=== PATIENT | female | born 1990 | race Caucasian/White ===

== ENCOUNTER 2017-10-11 20:22 | Emergency (ER) | payer OTHER ==
[~2017-10-11] VITALS: Ht 165.1 cm; Wt 61.2 kg
[2017-10-11 23:09] LABS: BASOPHILS ABSOLUTE AUTO 0.03 K/mm3 (0.00-0.23); BASOPHILS PERCENT AUTO 0 % (0-2); EOSINOPHILS PERCENT AUTO 0 % (0-6); Hematocrit 34.3 % (33.0-51.0); IMMATURE GRAN ABSOLUTE AUTO 0.08 K/mm3 (0.00-0.10); IMMATURE GRAN PERCENT AUTO 1 % (0-1); LYMPHOCYTES ABSOLUTE AUTO 2.56 K/mm3 (0.84-5.20); LYMPHOCYTES PERCENT AUTO 23 % (21-46); MONOCYTES ABSOLUTE AUTO 0.68 K/mm3 (0.16-1.47); MONOCYTES PERCENT AUTO 6 % (4-13); Mean Corpuscular HGB 27.9 pg (26.0-34.0); Mean Corpuscular HGB Conc 32.1 g/dL (31.5-36.5); Mean Corpuscular Volume 87 fL (80-100); NEUTROPHILS PERCENT AUTO 70 % (41-73); RDW Coefficient Variation 13.3 % (11.7-14.2); RDW Standard Deviation 42.6 fL (35.1-46.3); Red Blood Cell Count 3.94 M/mm3 (3.80-5.20); White Blood Cell Count 11.35 K/mm3 (4.00-11.30)
[2017-10-11 23:10] LABS: Mean Platelet Volume 11.9 fL (9.1-12.4); Platelet Count 173 K/mm3 (150-400)
[2017-10-11 23:18] LABS: Anion Gap 8 mmol/L (6-16); Blood Urea Nitrogen 11 mg/dL (8-24); Bun/Creatinine Ratio 16.4 (12.0-20.0); CO2, Blood 27 mmol/L (21-32); Calcium, Blood 9.1 mg/dL (8.5-10.1); Chloride, Blood 100 mmol/L (98-108); Creatinine, Blood 0.67 mg/dL (0.40-1.00); Glomerular Filtration Rate >60 (60-); Glucose, Blood 448 mg/dL (70-99); Potassium, Blood 3.7 mmol/L (3.5-5.5); Sodium, Blood 135 mmol/L (136-145)
[2017-10-12] MEDS ORDERED: CEPH500 PO (00:24)
[2017-10-22] MEDS ORDERED: LITH300ER PO (17:13)
[2017-10-22] MEDS ORDERED: PALI6TA PO (17:14)
[2017-10-22] MEDS ORDERED: CLON.2 PO (17:14)
[2017-10-22] MEDS ORDERED: Methylin ER10 MG PO (17:16)
[2017-10-22] MEDS ORDERED: TEMA30 PO (17:16)
[2017-10-22] MEDS ORDERED: Benztropine Mesy1 MG PO (17:17)
[2017-10-22] MEDS ORDERED: LORA.5 PO (17:18)
[2017-10-22] MEDS ORDERED: Vitamin D2000 UNIT PO (17:18)
[2017-10-22] MEDS ORDERED: METO5A PO (17:19)
[2017-10-22] MEDS ORDERED: Omeprazole20 M1 PO (17:19)
[2017-10-22] MEDS ORDERED: METPHE20 PO (17:19)
[2017-10-22] MEDS ORDERED: INSULANPEN SC (17:20)
[2017-10-22] MEDS ORDERED: Humalog100 UNIT/1 SC (17:20)
[2017-10-22] MEDS ORDERED: DICL250 PO (21:43)
[2017-10-22] MEDS ORDERED: Acetaminophen-1 EAC1 PO (21:43)
== END 2017-10-12 00:36 | disposition home or self-care (01) ==
LOC: ER 20:22
PROVIDERS: Emergency Medicine
DX: L03.116 Cellulitis of left lower limb (principal); E11.65 Type 2 diabetes mellitus with hyperglycemia; F41.9 Anxiety disorder, unspecified; K21.9 Gastro-esophageal reflux disease without esophagitis; F31.9 Bipolar disorder, unspecified; Z88.5 Allergy status to narcotic agent
CPT/HCPCS: 36415; 73610; 73630; 80048; 85025; 96360; 96361; 99283; J7030

== ENCOUNTER 2017-11-12 18:02 | Emergency (ER) | payer OTHER ==
[~2017-11-12] VITALS: Ht 165.1 cm; Wt 59.0 kg
[~2017-11-12 18:02] MED LIST: Acetaminophen-1 EAC1 PO; Benztropine Mesy1 MG PO; CEPH500 PO; CLON.2 PO; DICL250 PO; Humalog100 UNIT/1 SC; INSULANPEN SC; LITH300ER PO; LORA.5 PO; METO5A PO; METPHE20 PO; Methylin ER10 MG PO; Omeprazole20 M1 PO; PALI6TA PO; TEMA30 PO; Vitamin D2000 UNIT PO
[2017-11-12] MEDS ORDERED: METPHE10 PO (18:18)
[2017-11-12] MEDS ORDERED: RITALIN PO (18:18)
== END 2017-11-12 18:24 | disposition home or self-care (01) ==
LOC: ER 18:02
DX: Z76.0 Encounter for issue of repeat prescription (principal); F31.9 Bipolar disorder, unspecified; E11.9 Type 2 diabetes mellitus without complications; K21.9 Gastro-esophageal reflux disease without esophagitis; F41.9 Anxiety disorder, unspecified; F17.210 Nicotine dependence, cigarettes, uncomplicated; Z88.5 Allergy status to narcotic agent; Z79.899 Other long term (current) drug therapy; Z79.4 Long term (current) use of insulin
CPT/HCPCS: 99282

== ENCOUNTER 2018-02-21 08:36 | Observation (INO) | payer OTHER ==
[~2018-02-21] VITALS: Ht 165.1 cm; Wt 59.4 kg
[~2018-02-21 08:36] MED LIST changes: +METPHE10 PO; +RITALIN PO
[2018-02-21 09:30] LABS: BASOPHILS ABSOLUTE AUTO 0.05 K/mm3 (0.00-0.23); BASOPHILS PERCENT AUTO 1 % (0-2); EOSINOPHILS ABSOLUTE AUTO 0.02 K/mm3 (0.00-0.68); EOSINOPHILS PERCENT AUTO 0 % (0-6); Hematocrit 40.1 % (33.0-51.0); Hemoglobin 12.3 g/dL (11.5-16.0); IMMATURE GRAN ABSOLUTE AUTO 0.05 K/mm3 (0.00-0.10); IMMATURE GRAN PERCENT AUTO 1 % (0-1); LYMPHOCYTES ABSOLUTE AUTO 1.62 K/mm3 (0.84-5.20); LYMPHOCYTES PERCENT AUTO 16 % (21-46); MONOCYTES ABSOLUTE AUTO 0.46 K/mm3 (0.16-1.47); MONOCYTES PERCENT AUTO 5 % (4-13); Mean Corpuscular HGB 24.1 pg (26.0-34.0); Mean Corpuscular HGB Conc 30.7 g/dL (31.5-36.5); Mean Corpuscular Volume 79 fL (80-100); Mean Platelet Volume 11.5 fL (9.1-12.4); NEUTROPHILS ABSOLUTE AUTO 8.08 K/mm3 (1.96-9.15); NEUTROPHILS PERCENT AUTO 79 % (41-73); Platelet Count 203 K/mm3 (150-400); RDW Standard Deviation 51.1 fL (35.1-46.3); Red Blood Cell Count 5.11 M/mm3 (3.80-5.20); White Blood Cell Count 10.28 K/mm3 (4.00-11.30)
[2018-02-21 10:04] LABS: Alanine Aminotransfer (ALT/SGP 30 U/L (12-78); Albumin, Blood 4.4 g/dL (3.4-5.0); Alk Phos 195 U/L (50-136); Anion Gap 20 mmol/L (6-16); Aspartate Aminotrans (AST/SGOT 13 U/L (12-37); Bilirubin, Total 0.8 mg/dL (0.1-1.0); Blood Urea Nitrogen 14 mg/dL (8-24); Bun/Creatinine Ratio 18.7 (12.0-20.0); CO2, Blood 17 mmol/L (21-32); Calcium, Blood 9.2 mg/dL (8.5-10.1); Chloride, Blood 93 mmol/L (98-108); Creatinine, Blood 0.75 mg/dL (0.40-1.00); Globulin, Blood 4.4 g/dL (2.2-4.0); Glomerular Filtration Rate >60 (60-); Potassium, Blood 3.9 mmol/L (3.5-5.5); Sodium, Blood 130 mmol/L (136-145); Total Protein, Blood 8.8 g/dL (6.4-8.2)
[2018-02-21 10:06] LABS: Glucose, Blood 544 mg/dL (70-99)
[2018-02-21 11:34] LABS: Beta-hydroxybutyrate 65.1 mg/dL (0.2-2.8)
[2018-02-21 14:49] LABS: Anion Gap 19 mmol/L (6-16); Blood Urea Nitrogen 12 mg/dL (8-24); Bun/Creatinine Ratio 18.5 (12.0-20.0); CO2, Blood 12 mmol/L (21-32); Calcium, Blood 7.8 mg/dL (8.5-10.1); Chloride, Blood 104 mmol/L (98-108); Creatinine, Blood 0.65 mg/dL (0.40-1.00); Glomerular Filtration Rate >60 (60-); Glucose, Blood 334 mg/dL (70-99); Potassium, Blood 3.3 mmol/L (3.5-5.5); Sodium, Blood 135 mmol/L (136-145)
[2018-02-21 18:35] LABS: Anion Gap 11 mmol/L (6-16); Blood Urea Nitrogen 10 mg/dL (8-24); Bun/Creatinine Ratio 17.1 (12.0-20.0); CO2, Blood 19 mmol/L (21-32); Calcium, Blood 8.2 mg/dL (8.5-10.1); Chloride, Blood 109 mmol/L (98-108); Creatinine, Blood 0.59 mg/dL (0.40-1.00); Glomerular Filtration Rate >60 (60-); Glucose, Blood 116 mg/dL (70-99); Potassium, Blood 3.7 mmol/L (3.5-5.5); Sodium, Blood 139 mmol/L (136-145)
[2018-02-21 22:55] LABS: Anion Gap 7 mmol/L (6-16); Blood Urea Nitrogen 9 mg/dL (8-24); Bun/Creatinine Ratio 9.2 (12.0-20.0); CO2, Blood 22 mmol/L (21-32); Calcium, Blood 7.8 mg/dL (8.5-10.1); Chloride, Blood 108 mmol/L (98-108); Creatinine, Blood 0.98 mg/dL (0.40-1.00); Glomerular Filtration Rate >60 (60-); Glucose, Blood 352 mg/dL (70-99); Potassium, Blood 3.6 mmol/L (3.5-5.5); Sodium, Blood 137 mmol/L (136-145)
[2018-02-22 03:48] LABS: Anion Gap 8 mmol/L (6-16); Blood Urea Nitrogen 8 mg/dL (8-24); Bun/Creatinine Ratio 11.9 (12.0-20.0); CO2, Blood 23 mmol/L (21-32); Calcium, Blood 8.4 mg/dL (8.5-10.1); Chloride, Blood 110 mmol/L (98-108); Creatinine, Blood 0.67 mg/dL (0.40-1.00); Glomerular Filtration Rate >60 (60-); Glucose, Blood 270 mg/dL (70-99); Potassium, Blood 3.6 mmol/L (3.5-5.5); Sodium, Blood 141 mmol/L (136-145)
[2018-02-22] MEDS ORDERED: INSULANPEN SC (08:35)
== END 2018-02-22 09:09 | disposition home or self-care (01) ==
LOC: ER 08:36 → ICUW 08:37 → ICUE 13:14
PROVIDERS: Emergency Medicine; Internal Medicine; Nurse Practitioner Acute Care
DX: E10.10 Type 1 diabetes mellitus with ketoacidosis without coma (principal); E10.65 Type 1 diabetes mellitus with hyperglycemia; F31.9 Bipolar disorder, unspecified; E10.43 Type 1 diabetes mellitus with diabetic autonomic (poly)neuropathy; G47.30 Sleep apnea, unspecified; K31.84 Gastroparesis; F17.210 Nicotine dependence, cigarettes, uncomplicated; K21.9 Gastro-esophageal reflux disease without esophagitis; Z88.5 Allergy status to narcotic agent; Z87.442 Personal history of urinary calculi; Z79.899 Other long term (current) drug therapy; Z79.4 Long term (current) use of insulin
CPT/HCPCS: 36415; 80048; 80053; 81000; 81025; 82010; 82800; 82947; 85025; 96361; 96374; 96375; 99285-25; C9113; G0378; J1815; J2405; J3010; J7030; J7042

== ENCOUNTER 2018-06-24 14:24 | Inpatient (IN) | payer OTHER ==
[~2018-06-24] VITALS: Ht 165.1 cm; Wt 62.9 kg
[~2018-06-24 14:24] MED LIST changes: +CYCL10 PO; +IBUP600 PO
[2018-06-24 15:08] LABS: Source, Urine Clean Catch
[2018-06-24 15:13] LABS: Bilirubin, Urine Neg (Neg); Blood, Urine 5+ (Neg); Glucose Qualitative, Urine 4+ (Neg); Ketones, Urine 3+ (Neg); Leukocyte Esterase, Urine 1+ (Neg); Nitrite, Urine Neg (Neg); Protein, Urine Neg (Neg); Urobilinogen, Urine NORM (Normal)
[2018-06-24 15:15] LABS: BASOPHILS ABSOLUTE AUTO 0.04 K/mm3 (0.00-0.23); BASOPHILS PERCENT AUTO 0 % (0-2); EOSINOPHILS ABSOLUTE AUTO 0.03 K/mm3 (0.00-0.68); EOSINOPHILS PERCENT AUTO 0 % (0-6); Hematocrit 42.4 % (33.0-51.0); Hemoglobin 12.9 g/dL (11.5-16.0); IMMATURE GRAN ABSOLUTE AUTO 0.07 K/mm3 (0.00-0.10); IMMATURE GRAN PERCENT AUTO 1 % (0-1); LYMPHOCYTES ABSOLUTE AUTO 1.93 K/mm3 (0.84-5.20); LYMPHOCYTES PERCENT AUTO 19 % (21-46); MONOCYTES ABSOLUTE AUTO 0.41 K/mm3 (0.16-1.47); MONOCYTES PERCENT AUTO 4 % (4-13); Mean Corpuscular HGB 27.6 pg (26.0-34.0); Mean Corpuscular HGB Conc 30.4 g/dL (31.5-36.5); Mean Corpuscular Volume 91 fL (80-100); Mean Platelet Volume 12.6 fL (9.1-12.4); NEUTROPHILS PERCENT AUTO 75 % (41-73); Platelet Count 177 K/mm3 (150-400); RDW Coefficient Variation 14.2 % (11.7-14.2); RDW Standard Deviation 47.8 fL (35.1-46.3); Red Blood Cell Count 4.67 M/mm3 (3.80-5.20); White Blood Cell Count 9.98 K/mm3 (4.00-11.30)
[2018-06-24 15:21] LABS: Appearance, Urine Cloudy (Clear); Color, Urine Yellow (P-Yellow)
[2018-06-24 15:22] LABS: Bacteria Few /hpf; Red Blood Cells, Urine TNTC /hpf (0-2); Squamous Epithelial Cells Few /hpf (Few)
[2018-06-24 15:58] LABS: Alanine Aminotransfer (ALT/SGP 33 U/L (12-78); Albumin, Blood 4.7 g/dL (3.4-5.0); Alk Phos 318 U/L (50-136); Anion Gap 19 mmol/L (6-16); Aspartate Aminotrans (AST/SGOT 16 U/L (12-37); Bilirubin, Total 0.8 mg/dL (0.1-1.0); Blood Urea Nitrogen 24 mg/dL (8-24); Bun/Creatinine Ratio 23.3 (12.0-20.0); CO2, Blood 18 mmol/L (21-32); Chloride, Blood 90 mmol/L (98-108); Creatinine, Blood 1.03 mg/dL (0.40-1.00); Globulin, Blood 4.6 g/dL (2.2-4.0); Glomerular Filtration Rate >60 (60-); Glucose, Blood 877 mg/dL (70-99); Potassium, Blood 4.2 mmol/L (3.5-5.5); Sodium, Blood 127 mmol/L (136-145); Total Protein, Blood 9.3 g/dL (6.4-8.2)
[2018-06-24 20:30] LABS: Glucose, Blood 498 mg/dL (70-99)
[2018-06-24] MEDS ORDERED: QUET25 PO (21:26)
[2018-06-24] MEDS ORDERED: QUET100 PO (21:27)
[2018-06-24] MEDS ORDERED: LITH300C PO ×2 (21:28→21:29)
[2018-06-24] MEDS ORDERED: INVEGA SUS39 MG/0.25 IM (21:31)
[2018-06-24 21:44] LABS: Anion Gap 9 mmol/L (6-16); Blood Urea Nitrogen 17 mg/dL (8-24); Bun/Creatinine Ratio 23.5 (12.0-20.0); CO2, Blood 25 mmol/L (21-32); Calcium, Blood 8.1 mg/dL (8.5-10.1); Chloride, Blood 104 mmol/L (98-108); Creatinine, Blood 0.72 mg/dL (0.40-1.00); Glomerular Filtration Rate >60 (60-); Glucose, Blood 340 mg/dL (70-99); Potassium, Blood 3.5 mmol/L (3.5-5.5)
[2018-06-24 21:45] LABS: Sodium, Blood 138 mmol/L (136-145)
--- NOTE | 2018-06-24 22:59 | NUR ---
[facility]: Patient arrived to unit via stretcher at 2055hr, accompanied by ED nurse. Stood and transferred to bed without difficulty. VSS, denies pain, discomfort, SOB, or dyspnea. Insulin gtt at 6 u/hr upon arrival, decreased to 4u/hr after checking CBG. NS infusing and 250ml/hr, both peripheral IV's patent and intact. Given small amount of water, tolerating well, denies nausea, also requesting food. Contacted Dr. Maria after 2100 BMP results received (gap closed, CO2 wnl), blood glucose also down to 280's. Received orders per Dr. Maria to give patient's home long-acting insulin (28u), wait x1hr and turn off insulin gtt. Instructed to then give 6u humalog AC, including before feeding patient this shift. Also received approval (per Dr. Maria) to write for patient's home medications (Seroquel, [place]). Call light in reach, instructed to not get out of bed without assistance. Will continue to monitor for pain, comfort, safety.
[2018-06-25 04:08] LABS: Anion Gap 6 mmol/L (6-16); Blood Urea Nitrogen 14 mg/dL (8-24); Bun/Creatinine Ratio 20.5 (12.0-20.0); CO2, Blood 27 mmol/L (21-32); Calcium, Blood 8.2 mg/dL (8.5-10.1); Chloride, Blood 109 mmol/L (98-108); Creatinine, Blood 0.68 mg/dL (0.40-1.00); Glomerular Filtration Rate >60 (60-); Glucose, Blood 67 mg/dL (70-99); Potassium, Blood 3.4 mmol/L (3.5-5.5); Sodium, Blood 142 mmol/L (136-145)
--- NOTE | 2018-06-25 06:52 | NUR ---
Shift Summary: Patient slept well throughout remainder of shift, easily roused via verbal stimuli. X1 c/o back pain (chronic), effectively managed with prn tylenol x1. Long-acting insulin given approx 0000hr, then insulin gtt turned off in approx 1hr. Tolerated PO food (sandwhich, crackers, jello) without difficulty. 6u AC insulin ordered per Dr. Maria held at that time per concern of hypoglycemia. Morning lab values showed glucose of 67, patient asymptomatic and drank PO orange juice. Glucose re-checked in approx 30min, increased to 86. Patient remained asymptomatic and ate more crackers throughout remainder of shift. Morning labs also showed K+ of 3.4, received order per Dr. Rogers for 40meq IV KCl x1. Peripheral IV's remain patent and intact. Voided using toilet in room without difficulty. Calm and cooperative with staff, uses call light for assistance. Report given to Benedict BENITEZ.
--- NOTE | 2018-06-25 11:35 | NUR ---
PT DISCHARGED PT HAS BEEN DISCHARGED HOME, PT EDUCATED ON MEDS, CARB COUNTING, AND CARE PLAN, PT AGREED WITH THE PLAN, PT HAS REFERAL TO GET UROLOGY APPIONTMENT
[2018-07-29] MEDS ORDERED: MONDOXYNE NL100 MG PO ×2 (09:36→09:37)
== END 2018-06-25 11:33 | disposition home or self-care (01) | DRG 639 ==
LOC: ER 14:24 → ICUW 17:21 → ICUE 20:54 → ER 20:54 → ICUE 21:05
PROVIDERS: Emergency Medicine; Physician Assistant; ADMIT Internal Medicine
DX: E10.10 Type 1 diabetes mellitus with ketoacidosis without coma (principal); E10.65 Type 1 diabetes mellitus with hyperglycemia; F31.9 Bipolar disorder, unspecified; F17.200 Nicotine dependence, unspecified, uncomplicated; R31.9 Hematuria, unspecified; Z79.4 Long term (current) use of insulin; Z88.5 Allergy status to narcotic agent
CPT/HCPCS: 36415; 74176; 80048; 80053; 81001; 82010; 82947; 85025; 87077; 87086; 87186; 90686; 96361; 96365; 96375; 99285-25; C9113; G0008; J1815; J2405; J3480; J7030; J7120

== ENCOUNTER → 2018-07-26 | Outpatient (CLI) | payer OTHER ==
[~2018-07-26] MED LIST changes: +INVEGA SUS156 MG/1 M; +INVEGA SUS39 MG/0.25 IM; +LITH300C PO; +MONDOXYNE NL100 MG PO; +QUET100 PO; +QUET25 PO; +Ultram50 MG PO
[2018-07-29 23:08] LABS: CHLAMYDIA TRACHOMATIS, NAA Negative (Negative); NEISSERIA GONORRHOEAE, NAA Negative (Negative)
== END ==
LOC: LAB EV 13:33 → LAB SHORT 13:33
PROVIDERS: Nurse Practitioner
DX: R10.2 Pelvic and perineal pain (principal)
CPT/HCPCS: 87070; 87205; 87491; 87591

== ENCOUNTER 2018-07-27 08:49 | Emergency (ER) | payer OTHER ==
[~2018-07-27] VITALS: Ht 165.1 cm; Wt 65.8 kg
[~2018-07-27 08:49] MED LIST changes: -INVEGA SUS156 MG/1 M; -MONDOXYNE NL100 MG PO; -Ultram50 MG PO
[2018-07-27 10:05] LABS: BASOPHILS ABSOLUTE AUTO 0.02 K/mm3 (0.00-0.23); BASOPHILS PERCENT AUTO 0 % (0-2); EOSINOPHILS ABSOLUTE AUTO 0.05 K/mm3 (0.00-0.68); EOSINOPHILS PERCENT AUTO 1 % (0-6); Hemoglobin 11.4 g/dL (11.5-16.0); IMMATURE GRAN ABSOLUTE AUTO 0.02 K/mm3 (0.00-0.10); IMMATURE GRAN PERCENT AUTO 0 % (0-1); LYMPHOCYTES ABSOLUTE AUTO 1.55 K/mm3 (0.84-5.20); LYMPHOCYTES PERCENT AUTO 22 % (21-46); MONOCYTES ABSOLUTE AUTO 0.38 K/mm3 (0.16-1.47); MONOCYTES PERCENT AUTO 5 % (4-13); Mean Corpuscular HGB Conc 31.7 g/dL (31.5-36.5); Mean Corpuscular Volume 89 fL (80-100); Mean Platelet Volume 11.8 fL (9.1-12.4); NEUTROPHILS ABSOLUTE AUTO 4.97 K/mm3 (1.96-9.15); NEUTROPHILS PERCENT AUTO 71 % (41-73); Platelet Count 176 K/mm3 (150-400); RDW Coefficient Variation 13.7 % (11.7-14.2); RDW Standard Deviation 44.3 fL (35.1-46.3); Red Blood Cell Count 4.07 M/mm3 (3.80-5.20); White Blood Cell Count 6.99 K/mm3 (4.00-11.30)
[2018-07-27 10:27] LABS: Alanine Aminotransfer (ALT/SGP 41 U/L (12-78); Albumin, Blood 3.7 g/dL (3.4-5.0); Alk Phos 174 U/L (50-136); Anion Gap 7 mmol/L (6-16); Aspartate Aminotrans (AST/SGOT 31 U/L (12-37); Bilirubin, Total 0.4 mg/dL (0.1-1.0); Blood Urea Nitrogen 17 mg/dL (8-24); Bun/Creatinine Ratio 21.4 (12.0-20.0); CO2, Blood 26 mmol/L (21-32); Calcium, Blood 9.1 mg/dL (8.5-10.1); Chloride, Blood 106 mmol/L (98-108); Globulin, Blood 3.7 g/dL (2.2-4.0); Glomerular Filtration Rate >60 (60-); Glucose, Blood 182 mg/dL (70-99); Sodium, Blood 139 mmol/L (136-145); Total Protein, Blood 7.4 g/dL (6.4-8.2)
[2018-07-27] MEDS ORDERED: Ultram50 MG PO (12:03)
[2018-07-27 12:27] LABS: Candida species (DNA Probe) Negative (NEGATIVE); G. vaginalis (DNA Probe) Negative (NEGATIVE); T. vaginalis (DNA Probe) Negative (NEGATIVE)
[2018-07-29] MEDS ORDERED: MONDOXYNE NL100 MG PO ×2 (09:36→09:37)
[2018-07-29 23:08] LABS: CHLAMYDIA TRACHOMATIS, NAA Negative (Negative); NEISSERIA GONORRHOEAE, NAA Negative (Negative)
== END 2018-07-27 12:18 | disposition home or self-care (01) ==
LOC: ER 08:49
PROVIDERS: Emergency Medicine
DX: Z30.432 Encounter for removal of intrauterine contraceptive device (principal); N73.9 Female pelvic inflammatory disease, unspecified; F31.9 Bipolar disorder, unspecified; K21.9 Gastro-esophageal reflux disease without esophagitis; F41.9 Anxiety disorder, unspecified; E10.43 Type 1 diabetes mellitus with diabetic autonomic (poly)neuropathy; K31.84 Gastroparesis; F17.210 Nicotine dependence, cigarettes, uncomplicated; Z88.5 Allergy status to narcotic agent; Z79.899 Other long term (current) drug therapy
CPT/HCPCS: 36415; 80053; 83690; 85025; 87480; 87491; 87510; 87591; 87660; 96374; 96375; 99283-25; J2405; J3010

== ENCOUNTER 2018-08-05 18:31 | Emergency (ER) | payer OTHER ==
[~2018-08-05] VITALS: Ht 165.1 cm; Wt 65.8 kg
[~2018-08-05 18:31] MED LIST changes: +MONDOXYNE NL100 MG PO; -QUET100 PO; +QUET200 PO; -QUET25 PO; +QUETIAPINE FUMA50 MG PO; +Ultram50 MG PO
[2018-08-05 19:28] LABS: Base Excess Venous -2.1 mmol/L; Bicarbonate Venous 22.5 mmol/L (24.0-30.0); PCO2 Venous 41.5 mmHg (38-42); PO2 Venous 51.8 mmHg (38-42); pH Blood Venous 7.36 (7.34-7.37)
[2018-08-05 19:34] LABS: Source, Urine Clean Catch
[2018-08-05 19:36] LABS: BASOPHILS ABSOLUTE AUTO 0.03 K/mm3 (0.00-0.23); BASOPHILS PERCENT AUTO 1 % (0-2); EOSINOPHILS ABSOLUTE AUTO 0.04 K/mm3 (0.00-0.68); EOSINOPHILS PERCENT AUTO 1 % (0-6); Hematocrit 38.8 % (33.0-51.0); Hemoglobin 12.4 g/dL (11.5-16.0); IMMATURE GRAN ABSOLUTE AUTO 0.03 K/mm3 (0.00-0.10); IMMATURE GRAN PERCENT AUTO 1 % (0-1); LYMPHOCYTES PERCENT AUTO 31 % (21-46); MONOCYTES ABSOLUTE AUTO 0.47 K/mm3 (0.16-1.47); MONOCYTES PERCENT AUTO 7 % (4-13); Mean Corpuscular HGB 28.3 pg (26.0-34.0); Mean Corpuscular Volume 89 fL (80-100); Mean Platelet Volume 11.7 fL (9.1-12.4); NEUTROPHILS ABSOLUTE AUTO 3.86 K/mm3 (1.96-9.15); NEUTROPHILS PERCENT AUTO 60 % (41-73); Platelet Count 177 K/mm3 (150-400); RDW Coefficient Variation 13.3 % (11.7-14.2); RDW Standard Deviation 43.8 fL (35.1-46.3); Red Blood Cell Count 4.38 M/mm3 (3.80-5.20); White Blood Cell Count 6.43 K/mm3 (4.00-11.30)
[2018-08-05 19:38] LABS: Appearance, Urine Clear (Clear); Bilirubin, Urine Neg (Neg); Blood, Urine Neg (Neg); Color, Urine Yellow (P-Yellow); Glucose Qualitative, Urine 4+ (Neg); Ketones, Urine 2+ (Neg); Leukocyte Esterase, Urine Neg (Neg); Nitrite, Urine Neg (Neg); Protein, Urine Neg (Neg); Specific Gravity, Urine 1.015 (1.003-1.022); Urobilinogen, Urine NORM (Normal); pH, Urine 6.5 (5.0-8.0)
[2018-08-05 20:13] LABS: Alanine Aminotransfer (ALT/SGP 41 U/L (12-78); Albumin, Blood 4.2 g/dL (3.4-5.0); Alk Phos 174 U/L (50-136); Anion Gap 13 mmol/L (6-16); Aspartate Aminotrans (AST/SGOT 22 U/L (12-37); Bilirubin, Total 1.4 mg/dL (0.1-1.0); Blood Urea Nitrogen 14 mg/dL (8-24); Bun/Creatinine Ratio 21.5 (12.0-20.0); CO2, Blood 23 mmol/L (21-32); Calcium, Blood 8.9 mg/dL (8.5-10.1); Chloride, Blood 93 mmol/L (98-108); Creatinine, Blood 0.65 mg/dL (0.40-1.00); Glomerular Filtration Rate >60 (60-); Glucose, Blood 743 mg/dL (70-99); Potassium, Blood 3.8 mmol/L (3.5-5.5); Sodium, Blood 129 mmol/L (136-145); Total Protein, Blood 8.2 g/dL (6.4-8.2)
[2018-08-05] MEDS ORDERED: INVEGA SUS156 MG/1 M (23:25)
== END 2018-08-06 01:10 | disposition home or self-care (01) ==
LOC: ER 18:31
PROVIDERS: Physician Assistant
DX: E10.65 Type 1 diabetes mellitus with hyperglycemia (principal); F31.9 Bipolar disorder, unspecified; K21.9 Gastro-esophageal reflux disease without esophagitis; F41.9 Anxiety disorder, unspecified; F17.210 Nicotine dependence, cigarettes, uncomplicated; Z88.5 Allergy status to narcotic agent; Z79.899 Other long term (current) drug therapy
CPT/HCPCS: 36415; 80053; 81003; 82803; 82947; 83690; 83930; 85025; J1815; J7030

== ENCOUNTER 2018-08-07 10:17 | Inpatient (IN) | payer OTHER ==
[~2018-08-07] VITALS: Ht 165.1 cm; Wt 59.0 kg
[~2018-08-07 10:17] MED LIST changes: +INVEGA SUS156 MG/1 M
[2018-08-07 14:27] LABS: BASOPHILS ABSOLUTE AUTO 0.06 K/mm3 (0.00-0.23); BASOPHILS PERCENT AUTO 1 % (0-2); EOSINOPHILS PERCENT AUTO 0 % (0-6); Hematocrit 40.4 % (33.0-51.0); IMMATURE GRAN ABSOLUTE AUTO 0.16 K/mm3 (0.00-0.10); IMMATURE GRAN PERCENT AUTO 1 % (0-1); LYMPHOCYTES ABSOLUTE AUTO 1.26 K/mm3 (0.84-5.20); LYMPHOCYTES PERCENT AUTO 10 % (21-46); MONOCYTES ABSOLUTE AUTO 0.34 K/mm3 (0.16-1.47); MONOCYTES PERCENT AUTO 3 % (4-13); Mean Corpuscular HGB 28.5 pg (26.0-34.0); Mean Corpuscular HGB Conc 32.2 g/dL (31.5-36.5); Mean Corpuscular Volume 89 fL (80-100); Mean Platelet Volume 11.4 fL (9.1-12.4); NEUTROPHILS ABSOLUTE AUTO 10.84 K/mm3 (1.96-9.15); NEUTROPHILS PERCENT AUTO 86 % (41-73); Platelet Count 225 K/mm3 (150-400); RDW Coefficient Variation 13.5 % (11.7-14.2); RDW Standard Deviation 43.8 fL (35.1-46.3); Red Blood Cell Count 4.56 M/mm3 (3.80-5.20); Source, Urine Clean Catch; White Blood Cell Count 12.66 K/mm3 (4.00-11.30)
[2018-08-07 14:33] LABS: Base Excess Venous -17.1 mmol/L; Bicarbonate Venous 12.8 mmol/L (24.0-30.0); PCO2 Venous 28.5 mmHg (38-42); PO2 Venous 66.9 mmHg (38-42)
[2018-08-07 14:41] LABS: Appearance, Urine Clear (Clear); Bilirubin, Urine Neg (Neg); Blood, Urine 1+ (Neg); Color, Urine Yellow (P-Yellow); Glucose Qualitative, Urine 4+ (Neg); Ketones, Urine 4+ (Neg); Leukocyte Esterase, Urine 1+ (Neg); Nitrite, Urine Neg (Neg); Protein, Urine 1+ (Neg); Urobilinogen, Urine NORM (Normal)
[2018-08-07 14:49] LABS: Bacteria Many /hpf; Squamous Epithelial Cells Mod /hpf (Few)
[2018-08-07 14:50] LABS: Alanine Aminotransfer (ALT/SGP 38 U/L (12-78); Albumin, Blood 4.6 g/dL (3.4-5.0); Albumin/Globulin Ratio 1.1 (0.8-1.8); Alk Phos 196 U/L (50-136); Anion Gap 22 mmol/L (6-16); Aspartate Aminotrans (AST/SGOT 14 U/L (12-37); Blood Urea Nitrogen 22 mg/dL (8-24); Bun/Creatinine Ratio 21.8 (12.0-20.0); CO2, Blood 13 mmol/L (21-32); Calcium, Blood 9.2 mg/dL (8.5-10.1); Chloride, Blood 101 mmol/L (98-108); Creatinine, Blood 1.01 mg/dL (0.40-1.00); Globulin, Blood 4.2 g/dL (2.2-4.0); Glomerular Filtration Rate >60 (60-); Glucose, Blood 487 mg/dL (70-99); Potassium, Blood 4.2 mmol/L (3.5-5.5); Sodium, Blood 136 mmol/L (136-145); Total Protein, Blood 8.8 g/dL (6.4-8.2)
[2018-08-07 14:59] LABS: Beta-hydroxybutyrate 95.1 mg/dL (0.2-2.8)
--- NOTE | 2018-08-07 18:23 | NUR ---
Patient arrived via gurney and transfered self to ICU bed 10. She is able to communicate her needs. She is independent in bed and SBA when getting to [facility]. Dr Yeung stated OK for ice chips. She has been up to bathroom with one unmeasured urine and then placed hat in toilet. 1800 cbg 388 and insulin gtt at 8 units/hr and NS at 200ml/hr for 5 hrs. Patient on RA and sats 100%. She has REJ dressing intact and site WNL. 22ga IV LW dressing intact and site WNL's flushed and SL. She is in ST 100-130.
[2018-08-07 19:01] LABS: Anion Gap 19 mmol/L (6-16); Blood Urea Nitrogen 18 mg/dL (8-24); CO2, Blood 10 mmol/L (21-32); Calcium, Blood 7.5 mg/dL (8.5-10.1); Chloride, Blood 112 mmol/L (98-108); Creatinine, Blood 0.72 mg/dL (0.40-1.00); Glomerular Filtration Rate >60 (60-); Glucose, Blood 348 mg/dL (70-99); Potassium, Blood 3.5 mmol/L (3.5-5.5); Sodium, Blood 141 mmol/L (136-145)
--- NOTE | 2018-08-07 19:50 | NUR ---
ASSESSMENT PT SLEEPING, AWAKENS EASILY. C/O ABD PAIN 12/18. WILL CALL . BLOOD GLUCOSE 221. PT A&O LUNGS CLEAR ON ROOMAIR. RESP EVEN AND NONLABORED. HEART RATE TACHY. BP STABLE. IV 18G TO RIGHT EJ WITH NS AT 200ML/HR AND INSULIN AT 8 UNITS. PT C/O NAUSEA MED BY DAY SHIFT RN WITH [place]. PT UP AB SOLANGE AND TURNING SELF IN BED.
--- NOTE | 2018-08-07 20:21 | NUR ---
PAIN TALKED TO AMADA ABERNATHY REGARDING ABD PAIN AND BLOOD GLUCOSE DOWN TO 221. RECEIVED ORDER TO CHANGE IV FLUID TO D5 1/2 AT 150 ML/HR AND FENTANYL 25 MCQ IV Q4 PRN. MED PT WITH TYLENOL FOR ABD PAIN.
--- NOTE | 2018-08-07 21:43 | NUR ---
PAIN/NAUSEA PT AWAKE, UP TO THE BATHROOM. VOIDED 700ML CLEAR YELLOW URINE. C/0 ABD PAIN 6/10 AND NAUSA. MED WITH FENTANYL AND REGLAN. PT REPORTS PAIN DOWN TO 4/10 AFTER FENTANYL
--- NOTE | 2018-08-08 00:18 | NUR ---
REASSESSMENT PT SLEEPING, AWAKENS EASILY. DENIES PAIN. TURNING AND MOVING SELF IN BED. BLOOD GLUCOSE 154, INSULIN GTT AT 4 UNITS. D5 1/2 ML AT 75 ML/HR. NO CHANGE FROM PREVIOUS ASSESSMENT.
--- NOTE | 2018-08-08 01:35 | NUR ---
NAUSEA PT AWAKE, C/O NAUSEA. MED WITH ZOFRAN. PT TURNING AND MOVING SELF IN BED. BLOOD GLUSE DOWN TO 128, INSULIN DECREASED TO 3 UNITS.
--- NOTE | 2018-08-08 03:45 | NUR ---
REASSESSMENT PT AWAKE, MOVING AND TURNING SELF IN BED. DENIES PAIN. LABS DRAWN. BLOOD GLUCOSE 79, INSULIN PLACED ON HOLD. VSS.
[2018-08-08 03:51] LABS: BASOPHILS ABSOLUTE AUTO 0.04 K/mm3 (0.00-0.23); BASOPHILS PERCENT AUTO 1 % (0-2); EOSINOPHILS ABSOLUTE AUTO 0.05 K/mm3 (0.00-0.68); EOSINOPHILS PERCENT AUTO 1 % (0-6); Hematocrit 31.8 % (33.0-51.0); Hemoglobin 10.1 g/dL (11.5-16.0); IMMATURE GRAN ABSOLUTE AUTO 0.03 K/mm3 (0.00-0.10); IMMATURE GRAN PERCENT AUTO 0 % (0-1); LYMPHOCYTES PERCENT AUTO 33 % (21-46); MONOCYTES ABSOLUTE AUTO 0.67 K/mm3 (0.16-1.47); MONOCYTES PERCENT AUTO 8 % (4-13); Mean Corpuscular HGB 27.2 pg (26.0-34.0); Mean Corpuscular HGB Conc 31.8 g/dL (31.5-36.5); Mean Platelet Volume 10.9 fL (9.1-12.4); NEUTROPHILS ABSOLUTE AUTO 5.06 K/mm3 (1.96-9.15); NEUTROPHILS PERCENT AUTO 58 % (41-73); Platelet Count 165 K/mm3 (150-400); RDW Coefficient Variation 13.7 % (11.7-14.2); RDW Standard Deviation 42.7 fL (35.1-46.3); Red Blood Cell Count 3.71 M/mm3 (3.80-5.20); White Blood Cell Count 8.75 K/mm3 (4.00-11.30)
[2018-08-08 03:53] LABS: Mean Corpuscular Volume 86 fL (80-100)
[2018-08-08 04:10] LABS: Anion Gap 7 mmol/L (6-16); Blood Urea Nitrogen 9 mg/dL (8-24); Bun/Creatinine Ratio 12.9 (12.0-20.0); CO2, Blood 23 mmol/L (21-32); Calcium, Blood 8.2 mg/dL (8.5-10.1); Chloride, Blood 115 mmol/L (98-108); Glomerular Filtration Rate >60 (60-); Glucose, Blood 80 mg/dL (70-99); Potassium, Blood 2.9 mmol/L (3.5-5.5); Sodium, Blood 145 mmol/L (136-145)
--- NOTE | 2018-08-08 04:41 | NUR ---
MD CALL TO DR GUAN REGARDING POTASSIUM 2.9, RECEIVED ORDERS FOR KCL 40MEQ IV TIMES ONE. NOTIFIED MD ABOUT ANION GAP 7 AND CO2 23, DAY SHIFT HOSPITALIST TO REVIEW AND COVER.
--- NOTE | 2018-08-08 04:48 | NUR ---
BLOOD GLUCOSE BLOOD GLUCOSE 86, CONT TO HOLD INSULIN. PT REFUSING IV KCL REQUESTING PO. CALL OUT TO DR GUAN.
--- NOTE | 2018-08-08 05:49 | NUR ---
SHIFT SUMMARY PT RESTING QUIELY. TURNING AND MOVING SELF IN BED. INSULIN GTT OFF DUE TO BLOOD GLUCOSE 79-82. PT ON D5 1/2 AT 150 ML/HR. MED WITH ZOFRAN AND REGLAN DURING THE NIGHT FOR NAUSEA. MED WITH TYLENOL AND FENTANYL FOR ABD PAIN WITH GOOD RESULTS. PT GIVEN KCL PO THIS AM. NO ACUTE CHANGE. REPORT TO ON COMING NURSE
--- NOTE | 2018-08-08 07:47 | NUR ---
Received report from Radha BENITEZ. Patient resting quietly and easily awakens for care. She is abl;e to communicate her needs and denies any current5 nausea or pain. She is on RA and sats high 90%'s. She is independent in room and is able to position self for comfort and calls appropriately for BRP to help with lines and tubes. Her CBG was 116 and will leave insulin gtt off. She has 18ga REJ dressing intact and site WNL's and is infusing D5 1/2 at 150ml/hr. She also has LW 22ga dressing intact and site WNL's and was flushed and SL.
--- NOTE | 2018-08-08 09:37 | NUR ---
Patient awakened for care and tolerated PO meds. She requested nausea and pain medication, started 5/10 abdomen pain. Insulin remains off and will recheck CBG at 0940. VSS
[2018-08-08 11:24] LABS: Anion Gap 7 mmol/L (6-16); Blood Urea Nitrogen 7 mg/dL (8-24); Bun/Creatinine Ratio 9.9 (12.0-20.0); CO2, Blood 23 mmol/L (21-32); Calcium, Blood 8.3 mg/dL (8.5-10.1); Chloride, Blood 110 mmol/L (98-108); Creatinine, Blood 0.71 mg/dL (0.40-1.00); Glomerular Filtration Rate >60 (60-); Glucose, Blood 272 mg/dL (70-99); Potassium, Blood 3.5 mmol/L (3.5-5.5); Sodium, Blood 140 mmol/L (136-145)
--- NOTE | 2018-08-08 11:30 | NUR ---
Patient remains off insulin gtt and talked with Dr Medrano and place on M SS and Humalog for coverage and reduced D5 1/2 with 40meg K. Started on clear liquid and tolerated well. Will advance as tolerated. VSS
--- NOTE | 2018-08-08 13:30 | NUR ---
She was advanced to finger food ADA and tolerated well she had a few snack prior to luc CBG which was 356 and that probaly why high and they will check prior to dinner. She has denied nausea and abd. pain since eating. D5 1/2 with 4meq continuews at 75ml/hr.
--- NOTE | 2018-08-08 15:17 | NUR ---
Gave rep[ort to Geeta RN and patient ambulated to room 208 and with all personal belonging.
--- NOTE | 2018-08-08 18:14 | NUR ---
SUMMARY CBG 101 AT DINNERTIME, ATE 50% OF DINNER, TOLERATED WELL, DENIES ANY DISCOMFORT, AMBULATED X2 OUTSIDE TO SMOKE, NO ACUTE CHANGES THIS SHIFT.
[2018-08-09] MEDS ORDERED: ZOLP10 PO (01:56)
[2018-08-09 02:36] LABS: BASOPHILS ABSOLUTE AUTO 0.03 K/mm3 (0.00-0.23); BASOPHILS PERCENT AUTO 1 % (0-2); EOSINOPHILS ABSOLUTE AUTO 0.09 K/mm3 (0.00-0.68); EOSINOPHILS PERCENT AUTO 2 % (0-6); Hematocrit 35.2 % (33.0-51.0); Hemoglobin 11.3 g/dL (11.5-16.0); IMMATURE GRAN ABSOLUTE AUTO 0.01 K/mm3 (0.00-0.10); IMMATURE GRAN PERCENT AUTO 0 % (0-1); LYMPHOCYTES ABSOLUTE AUTO 1.83 K/mm3 (0.84-5.20); LYMPHOCYTES PERCENT AUTO 33 % (21-46); MONOCYTES ABSOLUTE AUTO 0.43 K/mm3 (0.16-1.47); MONOCYTES PERCENT AUTO 8 % (4-13); Mean Corpuscular HGB 27.2 pg (26.0-34.0); Mean Corpuscular HGB Conc 32.1 g/dL (31.5-36.5); Mean Corpuscular Volume 85 fL (80-100); Mean Platelet Volume 10.9 fL (9.1-12.4); NEUTROPHILS ABSOLUTE AUTO 3.18 K/mm3 (1.96-9.15); NEUTROPHILS PERCENT AUTO 57 % (41-73); Platelet Count 150 K/mm3 (150-400); RDW Coefficient Variation 13.9 % (11.7-14.2); RDW Standard Deviation 42.7 fL (35.1-46.3); Red Blood Cell Count 4.15 M/mm3 (3.80-5.20); White Blood Cell Count 5.57 K/mm3 (4.00-11.30)
[2018-08-09 02:52] LABS: Anion Gap 7 mmol/L (6-16); Blood Urea Nitrogen 6 mg/dL (8-24); Bun/Creatinine Ratio 8.1 (12.0-20.0); CO2, Blood 25 mmol/L (21-32); Chloride, Blood 106 mmol/L (98-108); Creatinine, Blood 0.74 mg/dL (0.40-1.00); Glomerular Filtration Rate >60 (60-); Glucose, Blood 373 mg/dL (70-99); Potassium, Blood 3.6 mmol/L (3.5-5.5); Sodium, Blood 138 mmol/L (136-145)
--- NOTE | 2018-08-09 03:25 | NUR ---
PT GLUCOSE NOTED TO BE QUITE ELEVATED ON AM LABS. CALLED DR. GUAN AND CHANGED SS COVERAGE TO INCLUDE HS AND TO COVER NOW. IVF WERE ALREADY STOPPED AT BEGINNING OF SHIFT. BUT OBTAINED CLARIFICATION ORDERS TO SL.
--- NOTE | 2018-08-09 05:08 | NUR ---
NO SIG CHANGES THIS SHIFT. PT HAS DENIED ANY SIG PAIN OR N/V AND HAS BEEN TOLERATING PO WELL. BLOOD GLUCOSE DID INCREASE DURING SHIFT AND DR. GUAN WAS NOTIFIED AND CHANGED SS ORDERS. PT IS INDEPENDENT IN ROOM AND SL. CALL LIGHT IS WITHIN REACH.
[2018-08-09] MEDS ORDERED: ACET325 PO (13:16)
[2018-08-09] MEDS ORDERED: METO10 PO (13:20)
[2018-08-09] MEDS ORDERED: CEFP200 PO (13:20)
[2018-08-09] MEDS ORDERED: PANT40 PO (13:21)
[2018-08-09] MEDS ORDERED: SACC250C PO (13:21)
--- NOTE | 2018-08-09 13:54 | NUR ---
DC INSTRUCTIONS GIVEN, VERBAlIZED UNDERSTANDING, PT WAITING FOR RIDE HOME.
== END 2018-08-09 14:06 | disposition home or self-care (01) | DRG 638 ==
LOC: ER 10:17 → ERHOLD 15:55 → ER 15:55 → ICUW 15:55 → SURS 08-08 14:36
PROVIDERS: Emergency Medicine; Physician Assistant; ADMIT Internal Medicine
DX: E10.10 Type 1 diabetes mellitus with ketoacidosis without coma (principal); N39.0 Urinary tract infection, site not specified; K21.9 Gastro-esophageal reflux disease without esophagitis; F31.9 Bipolar disorder, unspecified; E87.6 Hypokalemia; F17.200 Nicotine dependence, unspecified, uncomplicated; Z88.5 Allergy status to narcotic agent; Z79.4 Long term (current) use of insulin; Z79.899 Other long term (current) drug therapy
CPT/HCPCS: 36415; 71046; 80048; 80053; 81001; 82010; 82803; 82947; 83690; 83735; 85025; 87086; 93005; 93010; 96361; 96365; 96375; 99285-25; J0696; J1650; J1815; J2405; J2550; J2765; J3010; J7030; J7042; J7120

== ENCOUNTER → 2018-08-21 | Outpatient (CLI) | payer OTHER ==
[~2018-08-21] MED LIST changes: +ACET325 PO; +CEFP200 PO; +METO10 PO; +PANT40 PO; +SACC250C PO; +ZOLP10 PO
[2018-08-21 16:17] LABS: Alanine Aminotransfer (ALT/SGP 143 U/L (12-78); Albumin, Blood 3.6 g/dL (3.4-5.0); Albumin/Globulin Ratio 1.1 (0.8-1.8); Alk Phos 223 U/L (40-126); Anion Gap 8 mmol/L (6-16); Aspartate Aminotrans (AST/SGOT 90 U/L (12-37); Bilirubin, Total 0.6 mg/dL (0.1-1.0); Blood Urea Nitrogen 8 mg/dL (8-24); Bun/Creatinine Ratio 11.6 (12.0-20.0); CO2, Blood 29 mmol/L (21-32); Calcium, Blood 8.6 mg/dL (8.5-10.1); Chloride, Blood 104 mmol/L (98-108); Creatinine, Blood 0.69 mg/dL (0.40-1.00); Globulin, Blood 3.2 g/dL (2.2-4.0); Glomerular Filtration Rate >60 (60-); Glucose, Blood 101 mg/dL (70-99); Sodium, Blood 141 mmol/L (136-145); Total Protein, Blood 6.8 g/dL (6.4-8.2)
[2018-08-21 16:35] LABS: BASOPHILS ABSOLUTE AUTO 0.04 K/mm3 (0.00-0.23); BASOPHILS PERCENT AUTO 1 % (0-2); EOSINOPHILS ABSOLUTE AUTO 0.07 K/mm3 (0.00-0.68); EOSINOPHILS PERCENT AUTO 1 % (0-6); Hematocrit 34.6 % (33.0-51.0); Hemoglobin 11.1 g/dL (11.5-16.0); IMMATURE GRAN ABSOLUTE AUTO 0.07 K/mm3 (0.00-0.10); IMMATURE GRAN PERCENT AUTO 1 % (0-1); LYMPHOCYTES ABSOLUTE AUTO 2.62 K/mm3 (0.84-5.20); LYMPHOCYTES PERCENT AUTO 41 % (21-46); MONOCYTES ABSOLUTE AUTO 0.52 K/mm3 (0.16-1.47); MONOCYTES PERCENT AUTO 8 % (4-13); Mean Corpuscular HGB 27.9 pg (26.0-34.0); Mean Corpuscular HGB Conc 32.1 g/dL (31.5-36.5); Mean Corpuscular Volume 87 fL (80-100); Mean Platelet Volume 11.8 fL (9.1-12.4); NEUTROPHILS ABSOLUTE AUTO 3.15 K/mm3 (1.96-9.15); NEUTROPHILS PERCENT AUTO 49 % (41-73); Platelet Count 196 K/mm3 (150-400); RDW Coefficient Variation 15.7 % (11.7-14.2); RDW Standard Deviation 49.5 fL (35.1-46.3); Red Blood Cell Count 3.98 M/mm3 (3.80-5.20); White Blood Cell Count 6.47 K/mm3 (4.00-11.30)
== END | disposition home or self-care (01) ==
LOC: LAB SHORT 15:52 → LAB EV 15:52
PROVIDERS: Physician Assistant Surgical
DX: R31.9 Hematuria, unspecified (principal)
CPT/HCPCS: 80053; 85025

== ENCOUNTER 2018-08-25 13:47 | Emergency (ER) | payer OTHER ==
[~2018-08-25] VITALS: Ht 165.1 cm; Wt 65.8 kg
[2018-08-25] MEDS ORDERED: Norco 5-325 Ta1 EACH PO (16:00)
[2018-08-25] MEDS ORDERED: Bactrim Ds Tab1 EACH PO (16:00)
[2018-08-25] MEDS ORDERED: Percocet 5-3251 EACH PO (16:23)
== END 2018-08-25 16:25 | disposition home or self-care (01) ==
LOC: ER 13:47
DX: N76.4 Abscess of vulva (principal); E10.9 Type 1 diabetes mellitus without complications; F31.9 Bipolar disorder, unspecified; K21.9 Gastro-esophageal reflux disease without esophagitis; F41.9 Anxiety disorder, unspecified; F17.210 Nicotine dependence, cigarettes, uncomplicated; Z87.442 Personal history of urinary calculi; Z88.5 Allergy status to narcotic agent
CPT/HCPCS: 56405; 99283-25

== ENCOUNTER 2018-08-30 08:19 | Emergency (ER) | payer OTHER ==
[~2018-08-30] VITALS: Ht 165.1 cm; Wt 65.8 kg
[~2018-08-30 08:19] MED LIST changes: +Bactrim Ds Tab1 EACH PO; +Norco 5-325 Ta1 EACH PO; +Percocet 5-3251 EACH PO
[2018-08-30] MEDS ORDERED: Percocet 5-3251 EACH PO (09:21)
[2018-08-30] MEDS ORDERED: MONDOXYNE NL100 MG PO (09:21)
== END 2018-08-30 09:49 | disposition home or self-care (01) ==
LOC: ER 08:19
DX: N76.4 Abscess of vulva (principal); F31.9 Bipolar disorder, unspecified; F41.9 Anxiety disorder, unspecified; K21.9 Gastro-esophageal reflux disease without esophagitis; E10.9 Type 1 diabetes mellitus without complications; F17.200 Nicotine dependence, unspecified, uncomplicated; Z88.5 Allergy status to narcotic agent; Z79.899 Other long term (current) drug therapy
CPT/HCPCS: 99282

== ENCOUNTER 2018-09-17 10:19 | Emergency (ER) | payer OTHER ==
[~2018-09-17] VITALS: Ht 165.1 cm; Wt 65.8 kg
[2018-09-17 12:57] LABS: BASOPHILS ABSOLUTE AUTO 0.03 K/mm3 (0.00-0.23); BASOPHILS PERCENT AUTO 0 % (0-2); EOSINOPHILS ABSOLUTE AUTO 0.05 K/mm3 (0.00-0.68); EOSINOPHILS PERCENT AUTO 1 % (0-6); Hematocrit 35.5 % (33.0-51.0); Hemoglobin 11.6 g/dL (11.5-16.0); IMMATURE GRAN ABSOLUTE AUTO 0.05 K/mm3 (0.00-0.10); IMMATURE GRAN PERCENT AUTO 1 % (0-1); LYMPHOCYTES ABSOLUTE AUTO 2.17 K/mm3 (0.84-5.20); LYMPHOCYTES PERCENT AUTO 21 % (21-46); MONOCYTES ABSOLUTE AUTO 0.47 K/mm3 (0.16-1.47); MONOCYTES PERCENT AUTO 5 % (4-13); Mean Corpuscular HGB 27.9 pg (26.0-34.0); Mean Corpuscular HGB Conc 32.7 g/dL (31.5-36.5); Mean Corpuscular Volume 85 fL (80-100); Mean Platelet Volume 12.6 fL (9.1-12.4); NEUTROPHILS ABSOLUTE AUTO 7.72 K/mm3 (1.96-9.15); NEUTROPHILS PERCENT AUTO 74 % (41-73); Platelet Count 149 K/mm3 (150-400); RDW Coefficient Variation 14.1 % (11.7-14.2); RDW Standard Deviation 43.6 fL (35.1-46.3); Red Blood Cell Count 4.16 M/mm3 (3.80-5.20); White Blood Cell Count 10.49 K/mm3 (4.00-11.30)
[2018-09-17 13:21] LABS: Anion Gap 10 mmol/L (6-16); Beta-hydroxybutyrate 2.2 mg/dL (0.2-2.8); Blood Urea Nitrogen 17 mg/dL (8-24); Bun/Creatinine Ratio 23.4 (12.0-20.0); CO2, Blood 27 mmol/L (21-32); Chloride, Blood 97 mmol/L (98-108); Creatinine, Blood 0.73 mg/dL (0.40-1.00); Glomerular Filtration Rate >60 (60-); Glucose, Blood 407 mg/dL (70-99); Potassium, Blood 3.7 mmol/L (3.5-5.5); Sodium, Blood 134 mmol/L (136-145)
[2018-09-17] MEDS ORDERED: Bactrim Ds Tab1 EACH PO (13:38)
[2018-09-17] MEDS ORDERED: Percocet 5-3251 EACH PO (13:38)
== END 2018-09-17 14:19 | disposition home or self-care (01) ==
LOC: ER 10:19
PROVIDERS: Emergency Medicine
DX: L02.415 Cutaneous abscess of right lower limb (principal); E10.65 Type 1 diabetes mellitus with hyperglycemia; F31.9 Bipolar disorder, unspecified; F41.9 Anxiety disorder, unspecified; Z88.5 Allergy status to narcotic agent; Z79.4 Long term (current) use of insulin; Z79.899 Other long term (current) drug therapy
CPT/HCPCS: 10060; 36415; 80048; 82010; 82947; 85025; 99283-25; J7120

== ENCOUNTER 2018-09-23 17:03 | Emergency (ER) | payer OTHER ==
[~2018-09-23] VITALS: Ht 165.1 cm; Wt 61.2 kg
[~2018-09-23 17:03] MED LIST changes: +LITH300C
[2018-09-23] MEDS ORDERED: QUET100 (17:42)
[2018-09-23 18:40] LABS: BASOPHILS ABSOLUTE AUTO 0.03 K/mm3 (0.00-0.23); BASOPHILS PERCENT AUTO 0 % (0-2); EOSINOPHILS ABSOLUTE AUTO 0.11 K/mm3 (0.00-0.68); EOSINOPHILS PERCENT AUTO 1 % (0-6); Hematocrit 39.2 % (33.0-51.0); Hemoglobin 12.5 g/dL (11.5-16.0); IMMATURE GRAN ABSOLUTE AUTO 0.03 K/mm3 (0.00-0.10); IMMATURE GRAN PERCENT AUTO 0 % (0-1); LYMPHOCYTES ABSOLUTE AUTO 1.98 K/mm3 (0.84-5.20); LYMPHOCYTES PERCENT AUTO 24 % (21-46); MONOCYTES ABSOLUTE AUTO 0.52 K/mm3 (0.16-1.47); MONOCYTES PERCENT AUTO 6 % (4-13); Mean Corpuscular HGB Conc 31.9 g/dL (31.5-36.5); Mean Corpuscular Volume 88 fL (80-100); Mean Platelet Volume 12.2 fL (9.1-12.4); NEUTROPHILS ABSOLUTE AUTO 5.63 K/mm3 (1.96-9.15); NEUTROPHILS PERCENT AUTO 68 % (41-73); Platelet Count 167 K/mm3 (150-400); RDW Coefficient Variation 13.9 % (11.7-14.2); RDW Standard Deviation 44.8 fL (35.1-46.3); Red Blood Cell Count 4.47 M/mm3 (3.80-5.20)
[2018-09-23 18:50] LABS: Alanine Aminotransfer (ALT/SGP 41 U/L (12-78); Albumin, Blood 3.6 g/dL (3.4-5.0); Albumin/Globulin Ratio 0.9 (0.8-1.8); Alk Phos 205 U/L (50-136); Anion Gap 8 mmol/L (6-16); Aspartate Aminotrans (AST/SGOT 21 U/L (12-37); Bilirubin, Total 0.8 mg/dL (0.1-1.0); Blood Urea Nitrogen 16 mg/dL (8-24); Bun/Creatinine Ratio 23.8 (12.0-20.0); CO2, Blood 24 mmol/L (21-32); Calcium, Blood 8.6 mg/dL (8.5-10.1); Chloride, Blood 101 mmol/L (98-108); Creatinine, Blood 0.67 mg/dL (0.40-1.00); Glomerular Filtration Rate >60 (60-); Glucose, Blood 494 mg/dL (70-99); Potassium, Blood 4.3 mmol/L (3.5-5.5); Sodium, Blood 133 mmol/L (136-145); Total Protein, Blood 7.6 g/dL (6.4-8.2)
[2018-09-23 18:53] LABS: Source, Urine Clean Catch
[2018-09-23 18:56] LABS: Bilirubin, Urine Neg (Neg); Blood, Urine 1+ (Neg); Glucose Qualitative, Urine 4+ (Neg); Ketones, Urine 2+ (Neg); Leukocyte Esterase, Urine Neg (Neg); Nitrite, Urine Neg (Neg); Protein, Urine Neg (Neg); Urobilinogen, Urine NORM (Normal)
[2018-09-23 19:10] LABS: Appearance, Urine Clear (Clear); Color, Urine Yellow (P-Yellow)
[2018-09-23 19:11] LABS: Bacteria Few /hpf; Squamous Epithelial Cells Few /hpf (Few)
[2018-09-23 19:16] LABS: International Normalized Ratio 0.95; Prothrombin Time Results 10.1 Sec (9.7-11.5)
[2018-09-23 19:22] LABS: Lithium <0.20 mmol/L (0.60-1.20)
== END 2018-09-23 19:44 | disposition home or self-care (01) ==
LOC: ER 17:03
PROVIDERS: Emergency Medicine
DX: S09.90XA Unspecified injury of head, initial encounter (principal); E11.65 Type 2 diabetes mellitus with hyperglycemia; F17.210 Nicotine dependence, cigarettes, uncomplicated; F41.9 Anxiety disorder, unspecified; K21.9 Gastro-esophageal reflux disease without esophagitis; Z79.4 Long term (current) use of insulin; Z88.5 Allergy status to narcotic agent; Z79.899 Other long term (current) drug therapy; X58.XXXA Exposure to other specified factors, initial encounter
CPT/HCPCS: 36415; 70450; 72125; 80053; 80178; 81001; 85025; 85610; 93005; 93010; 99284-25; J1815

== ENCOUNTER 2018-11-12 18:58 | Observation (INO) | payer OTHER ==
[~2018-11-12] VITALS: Ht 165.1 cm; Wt 55.8 kg
[~2018-11-12 18:58] MED LIST changes: +CREON DR 36,001 EACH PO; -LITH300C; +ONDA4ODT MM; +Protonix40 MG PO; +QUET100 PO
[2018-11-12 19:34] LABS: BASOPHILS ABSOLUTE AUTO 0.08 K/mm3 (0.00-0.23); BASOPHILS PERCENT AUTO 1 % (0-2); EOSINOPHILS ABSOLUTE AUTO 0.16 K/mm3 (0.00-0.68); EOSINOPHILS PERCENT AUTO 1 % (0-6); Hematocrit 37.5 % (33.0-51.0); Hemoglobin 12.1 g/dL (11.5-16.0); IMMATURE GRAN ABSOLUTE AUTO 0.08 K/mm3 (0.00-0.10); IMMATURE GRAN PERCENT AUTO 1 % (0-1); LYMPHOCYTES ABSOLUTE AUTO 3.44 K/mm3 (0.84-5.20); LYMPHOCYTES PERCENT AUTO 30 % (21-46); MONOCYTES ABSOLUTE AUTO 0.77 K/mm3 (0.16-1.47); MONOCYTES PERCENT AUTO 7 % (4-13); Mean Corpuscular HGB 28.2 pg (26.0-34.0); Mean Corpuscular HGB Conc 32.3 g/dL (31.5-36.5); Mean Corpuscular Volume 87 fL (80-100); NEUTROPHILS ABSOLUTE AUTO 7.15 K/mm3 (1.96-9.15); NEUTROPHILS PERCENT AUTO 61 % (41-73); Platelet Count 300 K/mm3 (150-400); RDW Coefficient Variation 13.2 % (11.7-14.2); RDW Standard Deviation 42.8 fL (35.1-46.3); Red Blood Cell Count 4.29 M/mm3 (3.80-5.20); White Blood Cell Count 11.68 K/mm3 (4.00-11.30)
[2018-11-12 19:49] LABS: Base Excess Venous -12.3 mmol/L; Bicarbonate Venous 15.8 mmol/L (24.0-30.0); PCO2 Venous 24.1 mmHg (38-42); PO2 Venous 50.5 mmHg (38-42); pH Blood Venous 7.35 (7.34-7.37)
[2018-11-12 19:56] LABS: Alanine Aminotransfer (ALT/SGP 20 U/L (12-78); Albumin, Blood 4.4 g/dL (3.4-5.0); Alk Phos 177 U/L (50-136); Anion Gap 19 mmol/L (6-16); Aspartate Aminotrans (AST/SGOT 12 U/L (12-37); Bilirubin, Total 0.9 mg/dL (0.1-1.0); Blood Urea Nitrogen 14 mg/dL (8-24); Bun/Creatinine Ratio 14.9 (12.0-20.0); CO2, Blood 16 mmol/L (21-32); Calcium, Blood 10.1 mg/dL (8.5-10.1); Chloride, Blood 94 mmol/L (98-108); Creatinine, Blood 0.94 mg/dL (0.40-1.00); Globulin, Blood 4.3 g/dL (2.2-4.0); Glomerular Filtration Rate >60 (60-); Glucose, Blood 544 mg/dL (70-99); Potassium, Blood 3.8 mmol/L (3.5-5.5); Sodium, Blood 129 mmol/L (136-145); Total Protein, Blood 8.7 g/dL (6.4-8.2)
[2018-11-12 20:20] LABS: Source, Urine Clean Catch
[2018-11-12 20:22] LABS: Appearance, Urine Bloody (Clear); Bilirubin, Urine Neg (Neg); Blood, Urine 5+ (Neg); Color, Urine Red (P-Yellow); Glucose Qualitative, Urine 4+ (Neg); Ketones, Urine 4+ (Neg); Leukocyte Esterase, Urine 2+ (Neg); Nitrite, Urine Neg (Neg); Protein, Urine 3+ (Neg); Urobilinogen, Urine NORM (Normal)
[2018-11-12 20:31] LABS: Bacteria Many /hpf; Red Blood Cells, Urine TNTC /hpf (0-2); Squamous Epithelial Cells Few /hpf (Few); White Blood Cells, Urine 25-50 /hpf (0-5)
[2018-11-12 20:51] LABS: Lithium <0.20 mmol/L (0.60-1.20)
[2018-11-12 21:55] LABS: Glucose, Blood 589 mg/dL (70-99)
[2018-11-13] MEDS ORDERED: BASAGLAR K100 UNIT/1 SC (00:48)
--- NOTE | 2018-11-13 01:20 | NUR ---
PATIENT RESTING QUIETLY. JANICE PO WITHOUT DIFFICULTY. DOCTOR MATTHEW GIVEN UPDATE AND ORDER OBTAINED FOR D5 1/2NS WHEN GLUCOSE LESS THAN 200.
[2018-11-13 03:42] LABS: BASOPHILS ABSOLUTE AUTO 0.04 K/mm3 (0.00-0.23); BASOPHILS PERCENT AUTO 0 % (0-2); EOSINOPHILS ABSOLUTE AUTO 0.02 K/mm3 (0.00-0.68); EOSINOPHILS PERCENT AUTO 0 % (0-6); Hematocrit 30.4 % (33.0-51.0); IMMATURE GRAN ABSOLUTE AUTO 0.08 K/mm3 (0.00-0.10); IMMATURE GRAN PERCENT AUTO 1 % (0-1); LYMPHOCYTES ABSOLUTE AUTO 2.21 K/mm3 (0.84-5.20); LYMPHOCYTES PERCENT AUTO 18 % (21-46); MONOCYTES ABSOLUTE AUTO 0.66 K/mm3 (0.16-1.47); MONOCYTES PERCENT AUTO 5 % (4-13); Mean Corpuscular HGB 28.7 pg (26.0-34.0); Mean Corpuscular HGB Conc 32.9 g/dL (31.5-36.5); Mean Corpuscular Volume 87 fL (80-100); Mean Platelet Volume 11.3 fL (9.1-12.4); NEUTROPHILS ABSOLUTE AUTO 9.47 K/mm3 (1.96-9.15); NEUTROPHILS PERCENT AUTO 76 % (41-73); Platelet Count 188 K/mm3 (150-400); RDW Coefficient Variation 13.2 % (11.7-14.2); RDW Standard Deviation 42.2 fL (35.1-46.3); Red Blood Cell Count 3.49 M/mm3 (3.80-5.20); White Blood Cell Count 12.48 K/mm3 (4.00-11.30)
[2018-11-13 03:56] LABS: Magnesium, Blood 1.6 mg/dL (1.6-2.4)
[2018-11-13 04:01] LABS: Anion Gap 10 mmol/L (6-16); Blood Urea Nitrogen 13 mg/dL (8-24); Bun/Creatinine Ratio 16.9 (12.0-20.0); CO2, Blood 20 mmol/L (21-32); Chloride, Blood 108 mmol/L (98-108); Creatinine, Blood 0.77 mg/dL (0.40-1.00); Glomerular Filtration Rate >60 (60-); Glucose, Blood 200 mg/dL (70-99); Potassium, Blood 4.2 mmol/L (3.5-5.5); Sodium, Blood 138 mmol/L (136-145)
--- NOTE | 2018-11-13 04:01 | NUR ---
PATIENT C/O RETURN OF NAUSEA. ZOFRAN GIVEN. INSULIN DRIP AND D5 1/2NS INFUSING.
--- NOTE | 2018-11-13 06:39 | NUR ---
SUMMARY PATIENT RESTING QUIETLY IN BED. INSULIN DRIP TITRATED SEE FLOW SHEET. D5 1/2NS INFUSING. PATIENT HAD NAUSEA X1 RESOLVED WITH ZOFRAN. UP TO TOILET X1 WITH MIN ASSISTANCE VOIDING PINK/RED URINE PATIENT HAD BILAT URETERAL STENTS REMOVED 11/12.
--- NOTE | 2018-11-13 08:29 | NUR ---
PT'S LAST CMP WAS AT 0335. DR. POTTER NOTIFIED AND RECEIVED ORDER TO REPEAT NOW.
[2018-11-13 10:01] LABS: Alanine Aminotransfer (ALT/SGP 15 U/L (12-78); Albumin, Blood 3.2 g/dL (3.4-5.0); Alk Phos 124 U/L (50-136); Anion Gap 6 mmol/L (6-16); Aspartate Aminotrans (AST/SGOT 9 U/L (12-37); Bilirubin, Total 0.3 mg/dL (0.1-1.0); Blood Urea Nitrogen 8 mg/dL (8-24); Bun/Creatinine Ratio 12.5 (12.0-20.0); CO2, Blood 22 mmol/L (21-32); Calcium, Blood 8.2 mg/dL (8.5-10.1); Chloride, Blood 111 mmol/L (98-108); Creatinine, Blood 0.64 mg/dL (0.40-1.00); Globulin, Blood 3.3 g/dL (2.2-4.0); Glomerular Filtration Rate >60 (60-); Glucose, Blood 165 mg/dL (70-99); Potassium, Blood 3.4 mmol/L (3.5-5.5); Sodium, Blood 139 mmol/L (136-145)
[2018-11-13 10:02] LABS: Total Protein, Blood 6.5 g/dL (6.4-8.2)
--- NOTE | 2018-11-13 10:16 | NUR ---
PT'S CMP RESULTS REPORTED TO DR. POTTER. ORDERS RECEIVED FOR INSULIN, FLUIDS AND POTASSIUM, SEE ORDERS.
--- NOTE | 2018-11-13 11:49 | NUR ---
REASSESSMENT: PT HAS BEEN RESTING THROUGHOUT THE MORNING. SHE IS GETTING UP TO THE CHAIR AND TOILET INDEPENDENTLY. SHE STATES THAT SHE STILL FEELS SLIGHTLY NAUSEOUS, BUT HAS BEEN ABLE TO TOLERATE CL LIQUIDS. BLOOD SUGARS AND LABS ARE IMPROVED SO INSULIN GTT WAS TURNED OFF AFTER LONG ACTING INSULIN WAS GIVEN. IV LFUIDS SWITCHED BACK TO NS WELL. PT'S URINE HAS SWITCHED FROM A PINK TINGE TO A DARK YELLOW. PT'S SKIN APPEARS PALE STILL. NO OTHER REQUESTS AT THIS TIME. CONTINUING TO MONITOR.
--- NOTE | 2018-11-13 16:55 | NUR ---
RECEIVED REPORT FROM ELI RICHARDSON
--- NOTE | 2018-11-13 16:57 | NUR ---
SHIFT SUMMARY: PT WAS ABLE TO COME OFF THE INSULIN DRIP TODAY AND HAS BEEN TOLERATING AN INCREASING DIET. PT HAS BEEN ABLE TO GET UP AND VOID INDEPENDENTLY. HAD A BM. LUNGS REMAIN CLEAR ON RA, ST IN THE LOW 100S BP STABLE. PT TRANSFERRING TO MEDICAL FLOOR. REPORT GIVEN AND PT TRANSPORTED VIA WITH PODIATRIC MEDICINE DOCTOR.
--- NOTE | 2018-11-13 17:11 | NUR ---
PT ARRIVED TO ROOM VIA W/C PLEASANT AND IN NO ACUTE DISTRESS; MOVED TO BED INDEPENDENTLY; SITTING UP EATING A SANDWICH. CALL LIGHT WITHIN REACH; PT ORIENTED TO ROOM AND EXPLAINED FREQUENT ROUNDING PROCESS. BED LOW AND IN LOCKED POSITION.
--- NOTE | 2018-11-13 18:33 | NUR ---
SHIFT SUMMARY ICU TRANSFER LATE IN SHIFT. INDEPENDENT. OX4. DM TYPE 1. PLEASANT, COOPERATIVE. TOLERATING PO INTAKE.
--- NOTE | 2018-11-14 04:23 | NUR ---
SHIFT SUMMARY PATIENT HAD NO ACUTE EVENTS OBSERVED THIS SHIFT. AXO X4 AND INDEPENDENT. WENT OUTSIDE X THREE. CBG 335. PIVS REMAIN INTACT. NS INFUSING AT 150 mL/HR. TAKES MEDICATION WHOLE WITH WATER. VSS/AFEBRILE. DENIES PAIN AND SOB. MILD NAUSEA AND SCHEDULE REGLAN GIVEN PER EMAR AND ZOFRAN GIVEN X ONE PRN. COOPERATIVE WITH CARE. CALL LIGHT IN REACH. BED IN LOWEST POSITION. WILL CONTINUE TO MONITOR UNTIL DAY SHIFT NURSE ASSUMES CARE.
[2018-11-14 05:11] LABS: BASOPHILS ABSOLUTE AUTO 0.04 K/mm3 (0.00-0.23); BASOPHILS PERCENT AUTO 1 % (0-2); EOSINOPHILS ABSOLUTE AUTO 0.16 K/mm3 (0.00-0.68); EOSINOPHILS PERCENT AUTO 2 % (0-6); Hematocrit 28.5 % (33.0-51.0); Hemoglobin 9.4 g/dL (11.5-16.0); IMMATURE GRAN ABSOLUTE AUTO 0.02 K/mm3 (0.00-0.10); IMMATURE GRAN PERCENT AUTO 0 % (0-1); LYMPHOCYTES ABSOLUTE AUTO 2.89 K/mm3 (0.84-5.20); LYMPHOCYTES PERCENT AUTO 41 % (21-46); MONOCYTES ABSOLUTE AUTO 0.61 K/mm3 (0.16-1.47); MONOCYTES PERCENT AUTO 9 % (4-13); Mean Corpuscular HGB 29.2 pg (26.0-34.0); Mean Corpuscular Volume 89 fL (80-100); Mean Platelet Volume 11.7 fL (9.1-12.4); NEUTROPHILS ABSOLUTE AUTO 3.35 K/mm3 (1.96-9.15); NEUTROPHILS PERCENT AUTO 47 % (41-73); Platelet Count 177 K/mm3 (150-400); RDW Coefficient Variation 13.8 % (11.7-14.2); RDW Standard Deviation 44.5 fL (35.1-46.3); Red Blood Cell Count 3.22 M/mm3 (3.80-5.20); White Blood Cell Count 7.07 K/mm3 (4.00-11.30)
[2018-11-14 05:43] LABS: Anion Gap 10 mmol/L (6-16); Blood Urea Nitrogen 5 mg/dL (8-24); Bun/Creatinine Ratio 8.3 (12.0-20.0); CO2, Blood 21 mmol/L (21-32); Calcium, Blood 8.4 mg/dL (8.5-10.1); Chloride, Blood 111 mmol/L (98-108); Glomerular Filtration Rate >60 (60-); Glucose, Blood 209 mg/dL (70-99); Potassium, Blood 3.6 mmol/L (3.5-5.5); Sodium, Blood 142 mmol/L (136-145)
--- NOTE | 2018-11-14 16:10 | NUR ---
DISCHARGE SUMMARY PT DISCHARGE AMBULATORY POV WITH MOTHER AND IN NO ACUTE DISTRESS; OUTPATIENT ENGINEER STATION MAINLINE CONSULTED WITH PATIENT ABOUT DISCHARGE PLAN AND FOLLOW UP CARE AND WRITTEN MATERIALS AND INSTRUCTIONS WERE GIVEN TO PT. IV'S DISCONTINUED INTACT. RX FAXED TO [facility]. PT VERBALIZED UNDERSTANDING OF IMPORTANCE OF MAKING FOLLOW UP APPTS, CHECKING BLOOD SUGARS REGULARLY AND TAKING MEDICATIONS PRESCRIBED. ALL VALUABLE TAKEN HOME WITH ADILENETENT UPON DISCHARGE.
== END 2018-11-14 16:04 | disposition home or self-care (01) ==
LOC: ER 18:58 → ERHOLD 18:59 → MEDS 18:59 → ERHOLD 21:18 → ER 21:18 → ERHOLD 11-13 00:10 → ICUE 11-13 00:10 → MEDS 11-13 17:02
PROVIDERS: Emergency Medicine; Internal Medicine; ADMIT Hospitalist
DX: E10.10 Type 1 diabetes mellitus with ketoacidosis without coma (principal); E10.43 Type 1 diabetes mellitus with diabetic autonomic (poly)neuropathy; K31.84 Gastroparesis; F17.200 Nicotine dependence, unspecified, uncomplicated; F31.9 Bipolar disorder, unspecified; E87.1 Hypo-osmolality and hyponatremia; R31.9 Hematuria, unspecified; K86.89 Other specified diseases of pancreas; F11.11 Opioid abuse, in remission; E87.6 Hypokalemia; E83.39 Other disorders of phosphorus metabolism; K86.1 Other chronic pancreatitis; Z88.5 Allergy status to narcotic agent; Z88.8 Allergy status to other drugs, medicaments and biological substances; Z79.899 Other long term (current) drug therapy
CPT/HCPCS: 36415; 80048; 80053; 80069; 80178; 81001; 82010; 82803; 82947; 83690; 83735; 85025; 87086; 93005; 93010; 96361; 96374; 96375; 96376; 99285-25; C9113; J0696; J0780; J1815; J2405; J2765; J3010; J3480; J7030; J7042; J7060

== ENCOUNTER → 2018-12-05 | Outpatient (CLI) | payer OTHER ==
[~2018-12-05] MED LIST changes: +BASAGLAR K100 UNIT/1 SC; +Bentyl20 MG PO; +PROM25 PO; +PROM25 PR; +Pepcid40 MG PO; +QUET300 PO; +Zofran4 MG PO
[2018-12-06 12:06] LABS: Candida species (DNA Probe) Negative (NEGATIVE); G. vaginalis (DNA Probe) Negative (NEGATIVE); T. vaginalis (DNA Probe) Negative (NEGATIVE)
== END | disposition home or self-care (01) ==
LOC: LAB 17:35 → LAB SHORT 17:35
PROVIDERS: Nurse Practitioner Family
DX: E10.9 Type 1 diabetes mellitus without complications (principal); L29.8 Other pruritus
CPT/HCPCS: 87070; 87205; 87480; 87510; 87660

== ENCOUNTER 2018-12-17 20:48 | Inpatient (IN) | payer OTHER ==
[~2018-12-17] VITALS: Ht 165.1 cm; Wt 56.7 kg
[~2018-12-17 20:48] MED LIST changes: -Bentyl20 MG PO; -PROM25 PO; -PROM25 PR; -Pepcid40 MG PO; -QUET300 PO; -Zofran4 MG PO
[2018-12-17 21:32] LABS: BASOPHILS ABSOLUTE AUTO 0.04 K/mm3 (0.00-0.23); BASOPHILS PERCENT AUTO 1 % (0-2); EOSINOPHILS ABSOLUTE AUTO 0.06 K/mm3 (0.00-0.68); EOSINOPHILS PERCENT AUTO 1 % (0-6); Hematocrit 39.8 % (33.0-51.0); Hemoglobin 12.8 g/dL (11.5-16.0); IMMATURE GRAN ABSOLUTE AUTO 0.04 K/mm3 (0.00-0.10); IMMATURE GRAN PERCENT AUTO 1 % (0-1); LYMPHOCYTES ABSOLUTE AUTO 2.34 K/mm3 (0.84-5.20); LYMPHOCYTES PERCENT AUTO 31 % (21-46); MONOCYTES PERCENT AUTO 8 % (4-13); Mean Corpuscular HGB 28.6 pg (26.0-34.0); Mean Corpuscular HGB Conc 32.2 g/dL (31.5-36.5); Mean Corpuscular Volume 89 fL (80-100); Mean Platelet Volume 11.7 fL (9.1-12.4); NEUTROPHILS ABSOLUTE AUTO 4.58 K/mm3 (1.96-9.15); NEUTROPHILS PERCENT AUTO 60 % (41-73); Platelet Count 179 K/mm3 (150-400); RDW Coefficient Variation 13.6 % (11.7-14.2); RDW Standard Deviation 44.2 fL (35.1-46.3); Red Blood Cell Count 4.48 M/mm3 (3.80-5.20); White Blood Cell Count 7.66 K/mm3 (4.00-11.30)
[2018-12-17 21:41] LABS: Base Excess Venous -15.3 mmol/L; Bicarbonate Venous 13.7 mmol/L (24.0-30.0); PCO2 Venous 32.5 mmHg (38-42); PO2 Venous 78.8 mmHg (38-42)
[2018-12-17 21:57] LABS: Alanine Aminotransfer (ALT/SGP 27 U/L (12-78); Albumin, Blood 4.3 g/dL (3.4-5.0); Albumin/Globulin Ratio 1.2 (0.8-1.8); Alk Phos 223 U/L (50-136); Anion Gap 24 mmol/L (6-16); Aspartate Aminotrans (AST/SGOT 12 U/L (12-37); Blood Urea Nitrogen 17 mg/dL (8-24); Bun/Creatinine Ratio 17.6 (12.0-20.0); CO2, Blood 14 mmol/L (21-32); Chloride, Blood 95 mmol/L (98-108); Creatinine, Blood 0.97 mg/dL (0.40-1.00); Globulin, Blood 3.6 g/dL (2.2-4.0); Glomerular Filtration Rate >60 (60-); Glucose, Blood 401 mg/dL (70-99); Potassium, Blood 4.2 mmol/L (3.5-5.5); Sodium, Blood 133 mmol/L (136-145); Total Protein, Blood 7.9 g/dL (6.4-8.2)
[2018-12-17 22:14] LABS: Source, Urine Clean Catch
[2018-12-17 22:27] LABS: Bilirubin, Urine Neg (Neg); Blood, Urine Neg (Neg); Glucose Qualitative, Urine 4+ (Neg); Ketones, Urine 4+ (Neg); Leukocyte Esterase, Urine 1+ (Neg); Nitrite, Urine Neg (Neg); Protein, Urine 2+ (Neg); Urobilinogen, Urine NORM (Normal)
[2018-12-17 22:34] LABS: Appearance, Urine Clear (Clear); Color, Urine Yellow (P-Yellow)
[2018-12-17 22:39] LABS: Bacteria Many /hpf; Red Blood Cells, Urine 0-2 /hpf (0-2); Squamous Epithelial Cells Few /hpf (Few)
--- NOTE | 2018-12-18 00:15 | NUR ---
ADMIT RECEIVED FROM ER VIA RWILDER. ABLE TO AMBULATE FROM GURNEY TO BED WTIHOUT DIFFICULTY. ALERT AND ORIENTED. DENIES C/O DIZZINESS. C/O FEELING WEAK. MONITOR SHOWS ST, RATE 100-110. BP STABLE. AFEBRILE. RESPIRATIONS EVEN AND UNLABORED. RA SATS 97-98%. DENIES NAUSEA AND IS REQUESTING FOOD AT THIS TIME. INSULIN GTT AT 2UNITS/HR AT THIS TIME. NS INFUSING WIDE OPEN AT THIS TIME. NS WITH 40mEq KCL @ 200CC/HR PER ORDER. SEE ADMIT ASSESSMENT FOR FULL ASSESSMENT.
[2018-12-18] MEDS ORDERED: QUET300 PO (02:10)
[2018-12-18 03:29] LABS: Anion Gap 10 mmol/L (6-16); Blood Urea Nitrogen 11 mg/dL (8-24); Bun/Creatinine Ratio 14.2 (12.0-20.0); CO2, Blood 23 mmol/L (21-32); Calcium, Blood 7.8 mg/dL (8.5-10.1); Chloride, Blood 109 mmol/L (98-108); Creatinine, Blood 0.77 mg/dL (0.40-1.00); Glomerular Filtration Rate >60 (60-); Glucose, Blood 259 mg/dL (70-99); Potassium, Blood 3.2 mmol/L (3.5-5.5); Sodium, Blood 142 mmol/L (136-145)
--- NOTE | 2018-12-18 04:08 | NUR ---
LABS/CALL TO AM LABS CALLED TO DR. CASTRO AND UPDATE GIVEN. TO ENTER NEW ORDERS REGARDING INSULIN.
--- NOTE | 2018-12-18 06:45 | NUR ---
SHIFT SUMMARY NO ACUTE CHANGES. LANTUS GIVEN AT [address] CASTRO AND WILL TURN INSULIN GTT OFF IN 1 HOUR. INSULIN INFUSED BETWEEN 1-4UNITS/HR DURING NOC- NOW AT 1UNIT/HR. D5 1/2NS INFUSING @ 200CC/HR PER ORDER. VSS. SLEEPING WHEN UNDISTURBED. DENIES C/O NAUSEA- TOLERATED SNACK WITHOUT ISSUES. WILL REPORT TO DAY SHIFT RN WHEN AVAILABLE.
--- NOTE | 2018-12-18 07:15 | NUR ---
START OF SHIFT NOTE: RECEIVED REPORT FROM YANNA WALTER RN, ASSUMED CARE, PATIENT IS RESTING, OPENS EYES SPONTANEOUSLY, DENIES PAIN AND DISCOMFORT, AFEBRILE, RA, LUNG SOUNDS DIMINISHED THROUGHOUT, SR/ST, BOWEL TONES PRESENT AND HYPOACTIVE, PATIENT VOIDS, UP INDEPENDENTLY IN ROOM, BLOOD GLUCOSE TAKEN AND RESULT IS 88, PATIENT'S GAP CLOSED, DISCONTINUED FROM IVF'S AND INSULIN DRIP STOPPED, PATIENT VERBALIZING WISH TO EAT BREAKFAST, DIET ORDERED, CALL LIGHT IN REACH, WILL CONTINUE TO MONITOR.
--- NOTE | 2018-12-18 08:52 | NUR ---
PATIENT IS EATING BREAKFAST WITH GOOD APPEITE, CONTINUES TO ASK "WHEN CAN I GO HOME, WILL I BE DISCHARGED HOME TODAY", PATIENT INSTRUCTED THAT PHYSICIAN WILL COME BY AND ASSESS, CALL LIGHT IN REACH, WILL CONTINUE TO MONITOR.
--- NOTE | 2018-12-18 09:37 | NUR ---
PATIENT ASKED TO HAVE BLOOD GLUCOSE CHECKED, RESULT WAS 17, PATIENT ASYMPTOMATIC, NO SWEATS, NO SHAKINESS, NO DECREASED LOC, PATIENT REFUSED DEXTROSE PUSH PER PROTOCOL, BUT WAS GIVEN ORANGE JUICE, PEPSI, PEANUT BUTTER, AND ALSO A SECOND BREAKFAST TRAY, WILL RECHECK BLOOD SUGARS WITHIN 15 MINUTES, DR. WALTERS WAS NOTIFIED AND AGREED WITH PATIENT EATING INSTEAD OF DEXTROSE PUSH, WILL SEE PATIENT LATER, CALL LIGHT IN REACH, WILL CONTINUE TO MONITOR.
--- NOTE | 2018-12-18 10:11 | NUR ---
PATIENT ASKED IF THERE IS A POSSIBLITY TO BE SENT TO A CARB COUNTING CLASS, WILL ASK DR. WALTERS WHEN SHE COMES IN, ALSO PATIENT'S BLOOD GLUCOSE WAS RECHECKED AND RESULT 28, RECEIVED MORE JUICE AND PEPSI, ALSO ASKED TO GO OUTSIDE TO SMOKE, INSTRUCTED THAT SHE IS ICU STATUS AND WITH A LOW BLOOD SUGAR CANNOT GO OUTSIDE, PATIENT COOPERATIVE AND UNDERSTANDING, CALL LIGHT IN REACH, WILL CONTINUE TO MONITOR.
--- NOTE | 2018-12-18 10:36 | NUR ---
PATIENT'S BLOOD SUGAR RECHECKED, 117 AT THIS TIME, PATIENT RESTING COMFORTABLY, CALL LIGHT IN REACH, WILL CONTINUE TO MONITOR.
--- NOTE | 2018-12-18 11:40 | NUR ---
MILI SAGASTUME, HOURLY TEAM MEMBERS, NOTIFIED ABOUT CONSULT ON PATIENT, SHE WILL PRINT MATERIALS AND COME SEE PATIENT PRIOR TO DISCHARGE.
--- NOTE | 2018-12-18 12:39 | NUR ---
PATIENT DISCHARGED TO HOME, ALL DISCHARGE PAPERWORK, WRITTEN AND VERBAL, PROVIDED AND EXPLAINED, PATIENT VERBALIZED UNDERSTANDING, REFERRAL MADE TO PCP, APPOINTMENT MADE BY THIS RN, PIV'S REMOVED, PATIENT TOLERATED WELL, PATIENT WAS ESCORTED TO ICU ENTRANCE AND LEFT INDEPENDENTLY.
== END 2018-12-18 12:40 | disposition home or self-care (01) | DRG 638 ==
LOC: ER 20:48 → ICUW 23:09
PROVIDERS: Physician Assistant; ADMIT Hospitalist
DX: E10.10 Type 1 diabetes mellitus with ketoacidosis without coma (principal); K86.1 Other chronic pancreatitis; E87.1 Hypo-osmolality and hyponatremia; F31.9 Bipolar disorder, unspecified; E10.43 Type 1 diabetes mellitus with diabetic autonomic (poly)neuropathy; K31.84 Gastroparesis; K21.9 Gastro-esophageal reflux disease without esophagitis; F17.200 Nicotine dependence, unspecified, uncomplicated; Z88.5 Allergy status to narcotic agent; Z88.8 Allergy status to other drugs, medicaments and biological substances; Z79.4 Long term (current) use of insulin; Z79.899 Other long term (current) drug therapy
CPT/HCPCS: 36415; 71046; 80048; 80053; 81001; 81025; 82803; 82947; 83690; 85025; 87086; 93005; 93010; 96361-59; 96365-59; 96375-59; 99285-25; J1650; J1815; J2405; J3010; J3480; J7030; J7120

== ENCOUNTER 2018-12-24 20:05 | Emergency (ER) | payer OTHER ==
[~2018-12-24] VITALS: Ht 165.1 cm; Wt 61.2 kg
[~2018-12-24 20:05] MED LIST changes: +QUET300 PO
[2018-12-24 21:07] LABS: BASOPHILS ABSOLUTE AUTO 0.02 K/mm3 (0.00-0.23); BASOPHILS PERCENT AUTO 0 % (0-2); EOSINOPHILS ABSOLUTE AUTO 0.04 K/mm3 (0.00-0.68); EOSINOPHILS PERCENT AUTO 1 % (0-6); Hematocrit 32.8 % (33.0-51.0); Hemoglobin 10.6 g/dL (11.5-16.0); IMMATURE GRAN ABSOLUTE AUTO 0.02 K/mm3 (0.00-0.10); IMMATURE GRAN PERCENT AUTO 0 % (0-1); LYMPHOCYTES ABSOLUTE AUTO 2.21 K/mm3 (0.84-5.20); LYMPHOCYTES PERCENT AUTO 43 % (21-46); MONOCYTES ABSOLUTE AUTO 0.43 K/mm3 (0.16-1.47); MONOCYTES PERCENT AUTO 8 % (4-13); Mean Corpuscular HGB 28.8 pg (26.0-34.0); Mean Corpuscular HGB Conc 32.3 g/dL (31.5-36.5); Mean Corpuscular Volume 89 fL (80-100); Mean Platelet Volume 11.6 fL (9.1-12.4); NEUTROPHILS ABSOLUTE AUTO 2.48 K/mm3 (1.96-9.15); NEUTROPHILS PERCENT AUTO 48 % (41-73); Platelet Count 160 K/mm3 (150-400); RDW Coefficient Variation 13.8 % (11.7-14.2); RDW Standard Deviation 45.2 fL (35.1-46.3); Red Blood Cell Count 3.68 M/mm3 (3.80-5.20)
[2018-12-24 21:25] LABS: Alanine Aminotransfer (ALT/SGP 78 U/L (12-78); Albumin, Blood 3.7 g/dL (3.4-5.0); Alk Phos 213 U/L (50-136); Anion Gap 10 mmol/L (6-16); Aspartate Aminotrans (AST/SGOT 20 U/L (12-37); Bilirubin, Total 0.5 mg/dL (0.1-1.0); Blood Urea Nitrogen 10 mg/dL (8-24); Bun/Creatinine Ratio 14.4 (12.0-20.0); CO2, Blood 25 mmol/L (21-32); Chloride, Blood 101 mmol/L (98-108); Globulin, Blood 3.6 g/dL (2.2-4.0); Glomerular Filtration Rate >60 (60-); Glucose, Blood 394 mg/dL (70-99); Potassium, Blood 3.3 mmol/L (3.5-5.5); Sodium, Blood 136 mmol/L (136-145); Total Protein, Blood 7.3 g/dL (6.4-8.2)
[2018-12-24] MEDS ORDERED: Pepcid40 MG PO (21:46)
[2018-12-24] MEDS ORDERED: Zofran4 MG PO (21:46)
== END 2018-12-24 22:10 | disposition home or self-care (01) ==
LOC: ER 20:05
PROVIDERS: Physician Assistant
DX: K29.70 Gastritis, unspecified, without bleeding (principal); E10.65 Type 1 diabetes mellitus with hyperglycemia; Z88.8 Allergy status to other drugs, medicaments and biological substances; Z88.5 Allergy status to narcotic agent; Z79.899 Other long term (current) drug therapy; F31.9 Bipolar disorder, unspecified; K21.9 Gastro-esophageal reflux disease without esophagitis; E10.43 Type 1 diabetes mellitus with diabetic autonomic (poly)neuropathy; K31.84 Gastroparesis; F17.200 Nicotine dependence, unspecified, uncomplicated
CPT/HCPCS: 36415; 80053; 82947; 83690; 85025; 96361; 96374; 96375; 99283-25; J2405; J3010; J7120

== ENCOUNTER 2019-01-02 10:11 | Emergency (ER) | payer OTHER ==
[~2019-01-02] VITALS: Ht 165.1 cm; Wt 59.0 kg
[~2019-01-02 10:11] MED LIST changes: +Pepcid40 MG PO; +Zofran4 MG PO
[2019-01-02 11:09] LABS: BASOPHILS ABSOLUTE AUTO 0.05 K/mm3 (0.00-0.23); BASOPHILS PERCENT AUTO 1 % (0-2); EOSINOPHILS ABSOLUTE AUTO 0.03 K/mm3 (0.00-0.68); EOSINOPHILS PERCENT AUTO 0 % (0-6); Hematocrit 39.2 % (33.0-51.0); Hemoglobin 12.2 g/dL (11.5-16.0); IMMATURE GRAN ABSOLUTE AUTO 0.02 K/mm3 (0.00-0.10); IMMATURE GRAN PERCENT AUTO 0 % (0-1); LYMPHOCYTES ABSOLUTE AUTO 1.76 K/mm3 (0.84-5.20); LYMPHOCYTES PERCENT AUTO 25 % (21-46); MONOCYTES ABSOLUTE AUTO 0.36 K/mm3 (0.16-1.47); MONOCYTES PERCENT AUTO 5 % (4-13); Mean Corpuscular HGB 27.9 pg (26.0-34.0); Mean Corpuscular HGB Conc 31.1 g/dL (31.5-36.5); Mean Corpuscular Volume 90 fL (80-100); Mean Platelet Volume 11.8 fL (9.1-12.4); NEUTROPHILS ABSOLUTE AUTO 4.96 K/mm3 (1.96-9.15); NEUTROPHILS PERCENT AUTO 69 % (41-73); Platelet Count 172 K/mm3 (150-400); RDW Coefficient Variation 13.7 % (11.7-14.2); RDW Standard Deviation 45.1 fL (35.1-46.3); Red Blood Cell Count 4.37 M/mm3 (3.80-5.20); White Blood Cell Count 7.18 K/mm3 (4.00-11.30)
[2019-01-02 11:23] LABS: Alanine Aminotransfer (ALT/SGP 42 U/L (12-78); Albumin, Blood 4.2 g/dL (3.4-5.0); Alk Phos 232 U/L (50-136); Anion Gap 6 mmol/L (6-16); Aspartate Aminotrans (AST/SGOT 25 U/L (12-37); Bilirubin, Total 0.9 mg/dL (0.1-1.0); Blood Urea Nitrogen 9 mg/dL (8-24); Bun/Creatinine Ratio 9.9 (12.0-20.0); CO2, Blood 27 mmol/L (21-32); Calcium, Blood 9.4 mg/dL (8.5-10.1); Chloride, Blood 101 mmol/L (98-108); Creatinine, Blood 0.91 mg/dL (0.40-1.00); Globulin, Blood 4.4 g/dL (2.2-4.0); Glomerular Filtration Rate >60 (60-); Glucose, Blood 543 mg/dL (70-99); Potassium, Blood 3.5 mmol/L (3.5-5.5); Sodium, Blood 134 mmol/L (136-145); Total Protein, Blood 8.6 g/dL (6.4-8.2)
[2019-01-02 11:30] LABS: Source, Urine Clean Catch
[2019-01-02 11:32] LABS: Bilirubin, Urine Neg (Neg); Blood, Urine Neg (Neg); Glucose Qualitative, Urine 4+ (Neg); Ketones, Urine Neg (Neg); Leukocyte Esterase, Urine 1+ (Neg); Nitrite, Urine Neg (Neg); Protein, Urine Neg (Neg); Specific Gravity, Urine 1.005 (1.003-1.022); Urobilinogen, Urine NORM (Normal)
[2019-01-02 11:45] LABS: Appearance, Urine Hazy (Clear); Color, Urine Yellow (P-Yellow)
[2019-01-02 11:46] LABS: Red Blood Cells, Urine 0-2 /hpf (0-2)
[2019-01-02 11:47] LABS: Bacteria Many /hpf; Mucus Light (0-Heavy); Squamous Epithelial Cells Mod /hpf (Few)
[2019-01-02] MEDS ORDERED: PROM25 PO (13:33)
[2019-01-02] MEDS ORDERED: Percocet 5-3251 EACH PO (13:33)
[2019-01-02] MEDS ORDERED: PROM25 PR (13:33)
== END 2019-01-02 14:01 | disposition home or self-care (01) ==
LOC: ER 10:11
PROVIDERS: Emergency Medicine
DX: E10.65 Type 1 diabetes mellitus with hyperglycemia (principal); K21.9 Gastro-esophageal reflux disease without esophagitis; F41.9 Anxiety disorder, unspecified; F17.200 Nicotine dependence, unspecified, uncomplicated; Z79.899 Other long term (current) drug therapy; Z88.5 Allergy status to narcotic agent
CPT/HCPCS: 36415; 80053; 81001; 82947; 83690; 85025; 87086; 96361; 96374; 96375; 99284-25; J1170; J2550; J3010; J7030

== ENCOUNTER 2019-01-28 08:59 | Emergency (ER) | payer OTHER ==
[~2019-01-28] VITALS: Ht 157.5 cm; Wt 54.4 kg
[~2019-01-28 08:59] MED LIST changes: +PROM25 PO; +PROM25 PR
[2019-01-28 09:48] LABS: BASOPHILS ABSOLUTE AUTO 0.04 K/mm3 (0.00-0.23); BASOPHILS PERCENT AUTO 1 % (0-2); EOSINOPHILS PERCENT AUTO 2 % (0-6); Hematocrit 39.7 % (33.0-51.0); Hemoglobin 12.9 g/dL (11.5-16.0); IMMATURE GRAN ABSOLUTE AUTO 0.02 K/mm3 (0.00-0.10); IMMATURE GRAN PERCENT AUTO 0 % (0-1); LYMPHOCYTES ABSOLUTE AUTO 2.48 K/mm3 (0.84-5.20); LYMPHOCYTES PERCENT AUTO 38 % (21-46); MONOCYTES ABSOLUTE AUTO 0.46 K/mm3 (0.16-1.47); MONOCYTES PERCENT AUTO 7 % (4-13); Mean Corpuscular HGB 28.5 pg (26.0-34.0); Mean Corpuscular HGB Conc 32.5 g/dL (31.5-36.5); Mean Corpuscular Volume 88 fL (80-100); Mean Platelet Volume 11.1 fL (9.1-12.4); NEUTROPHILS ABSOLUTE AUTO 3.45 K/mm3 (1.96-9.15); NEUTROPHILS PERCENT AUTO 53 % (41-73); Platelet Count 187 K/mm3 (150-400); RDW Coefficient Variation 13.2 % (11.7-14.2); RDW Standard Deviation 42.6 fL (35.1-46.3); Red Blood Cell Count 4.53 M/mm3 (3.80-5.20); White Blood Cell Count 6.55 K/mm3 (4.00-11.30)
[2019-01-28 10:01] LABS: Alanine Aminotransfer (ALT/SGP 22 U/L (12-78); Albumin, Blood 4.2 g/dL (3.4-5.0); Alk Phos 162 U/L (50-136); Anion Gap 17 mmol/L (6-16); Aspartate Aminotrans (AST/SGOT 12 U/L (12-37); Bilirubin, Total 1.1 mg/dL (0.1-1.0); Blood Urea Nitrogen 11 mg/dL (8-24); Bun/Creatinine Ratio 16.7 (12.0-20.0); CO2, Blood 20 mmol/L (21-32); Calcium, Blood 9.3 mg/dL (8.5-10.1); Chloride, Blood 99 mmol/L (98-108); Creatinine, Blood 0.66 mg/dL (0.40-1.00); Globulin, Blood 4.1 g/dL (2.2-4.0); Glomerular Filtration Rate >60 (60-); Glucose, Blood 352 mg/dL (70-99); Potassium, Blood 3.4 mmol/L (3.5-5.5); Sodium, Blood 136 mmol/L (136-145); Total Protein, Blood 8.3 g/dL (6.4-8.2)
[2019-01-28 10:21] LABS: Source, Urine Clean Catch
[2019-01-28 10:27] LABS: Bilirubin, Urine Neg (Neg); Blood, Urine 1+ (Neg); Glucose Qualitative, Urine 4+ (Neg); Ketones, Urine 4+ (Neg); Leukocyte Esterase, Urine 1+ (Neg); Nitrite, Urine Neg (Neg); Protein, Urine Neg (Neg); Specific Gravity, Urine 1.015 (1.003-1.022); Urobilinogen, Urine NORM (Normal)
[2019-01-28 10:46] LABS: Appearance, Urine Hazy (Clear); Bacteria Rare /hpf; Color, Urine Yellow (P-Yellow); Red Blood Cells, Urine 0-2 /hpf (0-2); Squamous Epithelial Cells Not Seen /hpf (Few); White Blood Cells, Urine 0-2 /hpf (0-5)
[2019-01-28] MEDS ORDERED: PROM25 PO (12:40)
[2019-01-28] MEDS ORDERED: Bentyl20 MG PO (12:40)
== END 2019-01-28 12:58 | disposition home or self-care (01) ==
LOC: ER 08:59
PROVIDERS: Emergency Medicine
DX: E10.65 Type 1 diabetes mellitus with hyperglycemia (principal); R10.10 Upper abdominal pain, unspecified; F31.9 Bipolar disorder, unspecified; F41.9 Anxiety disorder, unspecified; F17.210 Nicotine dependence, cigarettes, uncomplicated; Z88.5 Allergy status to narcotic agent
CPT/HCPCS: 36415; 80053; 81001; 82947; 83690; 85025; 87086; 96361; 96374; 96376; 99284-25; J1815; J2550; J7120

== ENCOUNTER → 2019-02-01 | Outpatient (CLI) | payer OTHER ==
[~2019-02-01] MED LIST changes: +Bentyl20 MG PO
[2019-02-01 12:55] LABS: BASOPHILS ABSOLUTE AUTO 0.04 K/mm3 (0.00-0.23); BASOPHILS PERCENT AUTO 1 % (0-2); EOSINOPHILS ABSOLUTE AUTO 0.06 K/mm3 (0.00-0.68); EOSINOPHILS PERCENT AUTO 1 % (0-6); Hematocrit 43.6 % (33.0-51.0); Hemoglobin 15.1 g/dL (11.5-16.0); IMMATURE GRAN ABSOLUTE AUTO 0.03 K/mm3 (0.00-0.10); IMMATURE GRAN PERCENT AUTO 0 % (0-1); LYMPHOCYTES ABSOLUTE AUTO 2.28 K/mm3 (0.84-5.20); LYMPHOCYTES PERCENT AUTO 27 % (21-46); MONOCYTES ABSOLUTE AUTO 0.52 K/mm3 (0.16-1.47); MONOCYTES PERCENT AUTO 6 % (4-13); Mean Corpuscular HGB 28.5 pg (26.0-34.0); Mean Corpuscular HGB Conc 34.6 g/dL (31.5-36.5); Mean Platelet Volume 11.3 fL (9.1-12.4); NEUTROPHILS ABSOLUTE AUTO 5.57 K/mm3 (1.96-9.15); NEUTROPHILS PERCENT AUTO 66 % (41-73); Platelet Count 212 K/mm3 (150-400); RDW Coefficient Variation 13.6 % (11.7-14.2); Red Blood Cell Count 5.29 M/mm3 (3.80-5.20)
[2019-02-01 12:56] LABS: Mean Corpuscular Volume 82 fL (80-100)
[2019-02-01 13:12] LABS: Alanine Aminotransfer (ALT/SGP 17 U/L (12-78); Albumin, Blood 4.7 g/dL (3.4-5.0); Alk Phos 177 U/L (40-126); Anion Gap 18 mmol/L (6-16); Aspartate Aminotrans (AST/SGOT 13 U/L (12-37); Blood Urea Nitrogen 9 mg/dL (8-24); Bun/Creatinine Ratio 7.2 (12.0-20.0); CO2, Blood 23 mmol/L (21-32); Chloride, Blood 95 mmol/L (98-108); Creatinine, Blood 1.25 mg/dL (0.40-1.00); Globulin, Blood 4.6 g/dL (2.2-4.0); Glomerular Filtration Rate 50 (60-); Glucose, Blood 330 mg/dL (70-99); Potassium, Blood 2.6 mmol/L (3.5-5.5); Sodium, Blood 136 mmol/L (136-145); Total Protein, Blood 9.3 g/dL (6.4-8.2)
[2019-02-01 13:13] LABS: Troponin I <0.017 ng/mL (0.000-0.040)
[2019-02-01 14:35] LABS: CPK Creatine Kinase 50 U/L (26-192)
== END | disposition home or self-care (01) ==
LOC: LAB SHORT 12:50 → LAB EV 12:50
PROVIDERS: Physician Assistant Surgical
DX: F12.288 Cannabis dependence with other cannabis-induced disorder (principal); R07.9 Chest pain, unspecified
CPT/HCPCS: 80053; 82550; 83690; 84484; 85025

== ENCOUNTER 2019-02-22 11:03 | Emergency (ER) | payer OTHER ==
[~2019-02-22] VITALS: Ht 165.1 cm; Wt 51.7 kg
[2019-02-22 11:25] LABS: Calcium, Ionized (POC) 1.17 mmol/L (1.10-1.46); Chloride (POC) 104 mmol/L (98-108); Creatinine (POC) 0.9 mg/dL (0.6-1.0); Glucose (ISTAT POC) 474 mg/dL (70-99); Hemoglobin (POC) 10.9 g/dL (12.0-16.0); Potassium (POC) 3.5 mmol/L (3.5-5.5); Sodium (POC) 143 mmol/L (135-148); Total CO2 (POC) 27 mmol/L (21-32)
[2019-02-22 11:30] LABS: BASOPHILS ABSOLUTE AUTO 0.02 K/mm3 (0.00-0.23); BASOPHILS PERCENT AUTO 0 % (0-2); EOSINOPHILS ABSOLUTE AUTO 0.02 K/mm3 (0.00-0.68); EOSINOPHILS PERCENT AUTO 0 % (0-6); Hematocrit 32.7 % (33.0-51.0); Hemoglobin 10.7 g/dL (11.5-16.0); IMMATURE GRAN ABSOLUTE AUTO 0.02 K/mm3 (0.00-0.10); IMMATURE GRAN PERCENT AUTO 0 % (0-1); LYMPHOCYTES ABSOLUTE AUTO 1.18 K/mm3 (0.84-5.20); LYMPHOCYTES PERCENT AUTO 19 % (21-46); MONOCYTES ABSOLUTE AUTO 0.38 K/mm3 (0.16-1.47); MONOCYTES PERCENT AUTO 6 % (4-13); Mean Corpuscular HGB Conc 32.7 g/dL (31.5-36.5); Mean Corpuscular Volume 86 fL (80-100); Mean Platelet Volume 12.1 fL (9.1-12.4); NEUTROPHILS ABSOLUTE AUTO 4.58 K/mm3 (1.96-9.15); NEUTROPHILS PERCENT AUTO 74 % (41-73); Platelet Count 148 K/mm3 (150-400); RDW Coefficient Variation 13.8 % (11.7-14.2); RDW Standard Deviation 42.4 fL (35.1-46.3); Red Blood Cell Count 3.82 M/mm3 (3.80-5.20)
[2019-02-22 11:43] LABS: Base Excess Venous 3.4 mmol/L; Bicarbonate Venous 27.2 mmol/L (24.0-30.0); PCO2 Venous 41.2 mmHg (38-42); PO2 Venous 146 mmHg (38-42); pH Blood Venous 7.44 (7.34-7.37)
[2019-02-22 11:46] LABS: Alanine Aminotransfer (ALT/SGP 18 U/L (12-78); Albumin, Blood 3.8 g/dL (3.4-5.0); Albumin/Globulin Ratio 1.1 (0.8-1.8); Alk Phos 170 U/L (50-136); Anion Gap 7 mmol/L (6-16); Aspartate Aminotrans (AST/SGOT 10 U/L (12-37); Bilirubin, Total 0.6 mg/dL (0.1-1.0); Blood Urea Nitrogen 15 mg/dL (8-24); Bun/Creatinine Ratio 18.7 (12.0-20.0); CO2, Blood 29 mmol/L (21-32); Calcium, Blood 9.1 mg/dL (8.5-10.1); Chloride, Blood 109 mmol/L (98-108); Globulin, Blood 3.4 g/dL (2.2-4.0); Glomerular Filtration Rate >60 (60-); Glucose, Blood 462 mg/dL (70-99); Potassium, Blood 3.5 mmol/L (3.5-5.5); Sodium, Blood 145 mmol/L (136-145); Total Protein, Blood 7.2 g/dL (6.4-8.2)
[2019-02-22 13:59] LABS: Source, Urine Clean Catch
[2019-02-22 14:04] LABS: Bilirubin, Urine Neg (Neg); Blood, Urine Neg (Neg); Glucose Qualitative, Urine 4+ (Neg); Ketones, Urine Neg (Neg); Leukocyte Esterase, Urine Neg (Neg); Nitrite, Urine Neg (Neg); Protein, Urine Neg (Neg); Urobilinogen, Urine NORM (Normal)
[2019-02-22 14:13] LABS: Appearance, Urine Clear (Clear); Color, Urine Pale Yellow (P-Yellow)
[2019-02-22 14:18] LABS: U Amphetamine Screen DETECTED; U Barbituate Screen Not Detected; U Benzodiazapine Screen Not Detected; U Buprenorphine Screen Not Detected; U Cannabinoids Screen DETECTED; U Cocaine Screen Not Detected; U Methadone Screen Not Detected; U Methamphetamine Screen DETECTED; U Opiates Screen Not Detected; U Oxycodone Screen Not Detected; U Phencyclidine Screen Not Detected; U Propoxyphene Screen Not Detected
== END 2019-02-22 15:10 | disposition home or self-care (01) ==
LOC: ER 11:03
PROVIDERS: Emergency Medicine
DX: E10.65 Type 1 diabetes mellitus with hyperglycemia (principal); F15.90 Other stimulant use, unspecified, uncomplicated; F31.9 Bipolar disorder, unspecified; F41.9 Anxiety disorder, unspecified; F17.200 Nicotine dependence, unspecified, uncomplicated; Z88.5 Allergy status to narcotic agent; Z88.6 Allergy status to analgesic agent; Z79.899 Other long term (current) drug therapy
CPT/HCPCS: 80047; 80053; 81003; 81025; 82803; 82947; 85014; 85025; 96374; 99283-25; J2060; J7030

== ENCOUNTER 2019-04-20 06:06 | Inpatient (IN) | payer OTHER ==
[~2019-04-20] VITALS: Ht 165.1 cm; Wt 53.9 kg
[2019-04-20 06:35] LABS: Calcium, Ionized (POC) 1.11 mmol/L (1.10-1.46); Chloride (POC) 101 mmol/L (98-108); Creatinine (POC) 0.9 mg/dL (0.6-1.0); Glucose (ISTAT POC) 559 mg/dL (70-99); Hemoglobin (POC) 13.9 g/dL (12.0-16.0); Potassium (POC) 4.5 mmol/L (3.5-5.5); Sodium (POC) 134 mmol/L (135-148); Total CO2 (POC) 16 mmol/L (21-32)
[2019-04-20 06:44] LABS: pH Blood Venous 7.27 (7.34-7.37)
[2019-04-20 06:45] LABS: Base Excess Venous -14.4 mmol/L; Bicarbonate Venous 14.7 mmol/L (24.0-30.0); PCO2 Venous 26.8 mmHg (38-42); PO2 Venous 117 mmHg (38-42)
[2019-04-20 06:55] LABS: BASOPHILS ABSOLUTE AUTO 0.03 K/mm3 (0.00-0.23); BASOPHILS PERCENT AUTO 0 % (0-2); EOSINOPHILS PERCENT AUTO 0 % (0-6); Hematocrit 40.9 % (33.0-51.0); IMMATURE GRAN ABSOLUTE AUTO 0.07 K/mm3 (0.00-0.10); IMMATURE GRAN PERCENT AUTO 1 % (0-1); LYMPHOCYTES PERCENT AUTO 11 % (21-46); MONOCYTES ABSOLUTE AUTO 0.57 K/mm3 (0.16-1.47); MONOCYTES PERCENT AUTO 5 % (4-13); Mean Corpuscular HGB 29.2 pg (26.0-34.0); Mean Corpuscular HGB Conc 31.8 g/dL (31.5-36.5); Mean Platelet Volume 12.2 fL (9.1-12.4); NEUTROPHILS ABSOLUTE AUTO 10.58 K/mm3 (1.96-9.15); NEUTROPHILS PERCENT AUTO 84 % (41-73); Platelet Count 197 K/mm3 (150-400); RDW Coefficient Variation 12.7 % (11.7-14.2); RDW Standard Deviation 42.8 fL (35.1-46.3); Red Blood Cell Count 4.45 M/mm3 (3.80-5.20); White Blood Cell Count 12.65 K/mm3 (4.00-11.30)
[2019-04-20 06:59] LABS: Mean Corpuscular Volume 92 fL (80-100)
[2019-04-20 07:17] LABS: Alanine Aminotransfer (ALT/SGP 58 U/L (12-78); Albumin, Blood 4.3 g/dL (3.4-5.0); Alk Phos 282 U/L (50-136); Anion Gap 21 mmol/L (6-16); Aspartate Aminotrans (AST/SGOT 26 U/L (12-37); Bilirubin, Total 1.2 mg/dL (0.1-1.0); Blood Urea Nitrogen 22 mg/dL (8-24); Bun/Creatinine Ratio 23.9 (12.0-20.0); CO2, Blood 14 mmol/L (21-32); Calcium, Blood 9.3 mg/dL (8.5-10.1); Chloride, Blood 98 mmol/L (98-108); Creatinine, Blood 0.92 mg/dL (0.40-1.00); Globulin, Blood 4.5 g/dL (2.2-4.0); Glomerular Filtration Rate >60 (60-); Potassium, Blood 4.4 mmol/L (3.5-5.5); Sodium, Blood 133 mmol/L (136-145); Total Protein, Blood 8.8 g/dL (6.4-8.2)
[2019-04-20 07:34] LABS: Glucose, Blood 558 mg/dL (70-99)
[2019-04-20 08:03] LABS: Source, Urine Clean Catch
[2019-04-20 08:05] LABS: Appearance, Urine Clear (Clear); Bilirubin, Urine Neg (Neg); Blood, Urine Neg (Neg); Color, Urine Yellow (P-Yellow); Glucose Qualitative, Urine 4+ (Neg); Ketones, Urine 4+ (Neg); Leukocyte Esterase, Urine Neg (Neg); Nitrite, Urine Neg (Neg); Protein, Urine Neg (Neg); Specific Gravity, Urine 1.015 (1.003-1.022); Urobilinogen, Urine NORM (Normal)
[2019-04-20 09:31] LABS: U Amphetamine Screen Not Detected; U Barbituate Screen Not Detected; U Benzodiazapine Screen Not Detected; U Buprenorphine Screen Not Detected; U Cannabinoids Screen DETECTED; U Cocaine Screen DETECTED; U Methadone Screen Not Detected; U Methamphetamine Screen Not Detected; U Opiates Screen Not Detected; U Oxycodone Screen Not Detected; U Phencyclidine Screen Not Detected; U Propoxyphene Screen Not Detected
[2019-04-20] MEDS ORDERED: OMEPRAZOLE20 MG PO (10:53)
[2019-04-20] MEDS ORDERED: Cymbalta20 MG PO (10:59)
[2019-04-20] MEDS ORDERED: BACL10 PO (11:00)
[2019-04-20] MEDS ORDERED: TRAM50 PO (11:00)
[2019-04-20 11:18] LABS: Anion Gap 10 mmol/L (6-16); Blood Urea Nitrogen 18 mg/dL (8-24); CO2, Blood 18 mmol/L (21-32); Chloride, Blood 110 mmol/L (98-108); Creatinine, Blood 0.78 mg/dL (0.40-1.00); Glomerular Filtration Rate >60 (60-); Glucose, Blood 273 mg/dL (70-99); Sodium, Blood 138 mmol/L (136-145)
--- NOTE | 2019-04-20 11:25 | NUR ---
ADMIT: PT ADMITTED TO ICU 3 AT 1015. PT AMBULATORY, WALKED TO TOILET AND USED IT BEFORE GETTING INTO BED. 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 CLEARANCE SWABS OBTAINED. PT'S URINE CAME BACK POSITIVE FOR COCAINE. PT STATES SHE DID NOT KNOWINGLY USE IT. SHE STATES THE LAST THING SHE REMEMBERS IS SMOKING A JOINT WITH A FRIEND SO SHE BELIEVES THAT THE JOINT MAY HAVE BEEN LACED WITH COCAINE. INSULIN GTT INFUSING. CONTINUING TO MONITOR.
[2019-04-20 12:45] LABS: Adenovirus Not Detected (NOT DETECT); Bordetella pertussis Not Detected (NOT DETECT); Chlamydophila pneumoniae Not Detected (NOT DETECT); Coronavirus 229E Not Detected (NOT DETECT); Coronavirus HKU1 Not Detected (NOT DETECT); Coronavirus NL63 Not Detected (NOT DETECT); Coronavirus OC43 Not Detected (NOT DETECT); Human Metapneumovirus Not Detected (NOT DETECT); Human Rhinovirus/Enterovirus Not Detected (NOT DETECT); Influenza A Not Detected (NOT DETECT); Influenza A/2009-H1 Not Detected (NOT DETECT); Influenza A/H1 Not Detected (NOT DETECT); Influenza A/H3 Not Detected (NOT DETECT); Influenza B Not Detected (NOT DETECT); Mycoplasma pneumoniae Not Detected (NOT DETECT); Parainfluenza Virus 1 Not Detected (NOT DETECT); Parainfluenza Virus 2 Not Detected (NOT DETECT); Parainfluenza Virus 3 Not Detected (NOT DETECT); Parainfluenza Virus 4 Not Detected (NOT DETECT); Respiratory Syncytial Virus Not Detected (NOT DETECT)
[2019-04-20 15:41] LABS: Anion Gap 7 mmol/L (6-16); Blood Urea Nitrogen 13 mg/dL (8-24); Bun/Creatinine Ratio 19.3 (12.0-20.0); CO2, Blood 23 mmol/L (21-32); Calcium, Blood 7.7 mg/dL (8.5-10.1); Chloride, Blood 112 mmol/L (98-108); Creatinine, Blood 0.67 mg/dL (0.40-1.00); Glomerular Filtration Rate >60 (60-); Glucose, Blood 137 mg/dL (70-99); Potassium, Blood 3.7 mmol/L (3.5-5.5); Sodium, Blood 142 mmol/L (136-145)
--- NOTE | 2019-04-20 16:18 | NUR ---
SHIFT SUMMARY: PT HAS BEEN RESTING SINCE ADMIT. BLOOD SUGARS HAVE COME DOWN, ANION GAP AND CO2 HAVE NORMALIZED. DR. WALTERS NOTIFIED AND ORDERS RECEIVED FOR INSULINS. LANTUS GIVEN AND WILL TURN OFF INSULIN GTT AFTER [address] WALTERS'S ORDER. DR. WALTERS GAVE OK TO START ADA DIET IF BLOOD SUGARS REMAIN STABLE AFTER INSULIN GTT STOPPED. LUNGS REMAIN CLEAR, RA. HR SINUS IN THE 90S NOW, BP STABLE. PT STATES NAUSEA HAS IMPROVED. SHE HAS BEEN UP TO THE BR INDEPENDENTLY. CONTINUING TO MONITOR.
--- NOTE | 2019-04-20 18:31 | NUR ---
PT IS REQUESTING TO BE DISCHARGED. EXPLAINED TO PT THAT SHE NEEDS MONITORING OVERNIGHT BECAUSE SHE IS ONLY JUST EATING NOW AND THERE IS A RISK OF THE DKA RETURNING. PT BECAME TEARFUL AND JUST KEEPS SAYING SHE WANTS TO GO HOME. ASKED PT IF THERE IS SOMETHING GOING ON AT HOME AND SHE SAYS NO, SHE JUST WANTS TO GO HOME. ASKED PT IF THERE IS ANYTHING THAT COULD MAKE IT SO SHE WANTS TO STAY AND SHE SAYS NO. DR. WALTERS NOTIFIED AND SAID SHE ISN'T GOING TO DISCHARGE THE PT BECAUSE SHE NEEDS MORE MONITORING. PT SIGNED AMA FORMS, IVS REMOVED AND PT OLEFT, AMBULATORY. PT STATED HER MOM WAS GOING TO PICK HER UP. ALL BELONGINGS SENT HOME WITH PT.
== END 2019-04-20 18:40 | disposition left against medical advice (07) | DRG 638 ==
LOC: ER 06:06 → ICUW 09:45 → ICUE 09:46
PROVIDERS: Emergency Medicine; Nurse Practitioner Acute Care; ADMIT Internal Medicine
DX: E13.10 Other specified diabetes mellitus with ketoacidosis without coma (principal); K86.1 Other chronic pancreatitis; F31.9 Bipolar disorder, unspecified; E13.43 Other specified diabetes mellitus with diabetic autonomic (poly)neuropathy; K31.84 Gastroparesis; F17.210 Nicotine dependence, cigarettes, uncomplicated; Z79.4 Long term (current) use of insulin; Z88.6 Allergy status to analgesic agent; Z88.5 Allergy status to narcotic agent; Z88.8 Allergy status to other drugs, medicaments and biological substances
CPT/HCPCS: 0099U; 36415; 76705; 80047; 80048; 80053; 81003; 81025; 82803; 82947; 83690; 85014; 85025; 90686; C9113; G0008; J1200; J1650; J1815; J2550; J3010; J7030; J7042

== ENCOUNTER 2019-04-23 13:33 | Observation (INO) | payer OTHER ==
[~2019-04-23] VITALS: Ht 167.6 cm; Wt 53.9 kg
[~2019-04-23 13:33] MED LIST changes: +BACL10 PO; +Cymbalta20 MG PO; +OMEPRAZOLE20 MG PO; +TRAM50 PO
[2019-04-23 14:09] LABS: Base Excess Venous 1.2 mmol/L; Bicarbonate Venous 26.2 mmol/L (24.0-30.0); PCO2 Venous 27.1 mmHg (38-42); PO2 Venous 89.7 mmHg (38-42); pH Blood Venous 7.55 (7.34-7.37)
[2019-04-23 14:36] LABS: BASOPHILS ABSOLUTE AUTO 0.03 K/mm3 (0.00-0.23); BASOPHILS PERCENT AUTO 1 % (0-2); EOSINOPHILS PERCENT AUTO 0 % (0-6); Hematocrit 36.1 % (33.0-51.0); Hemoglobin 11.7 g/dL (11.5-16.0); IMMATURE GRAN ABSOLUTE AUTO 0.03 K/mm3 (0.00-0.10); IMMATURE GRAN PERCENT AUTO 1 % (0-1); LYMPHOCYTES ABSOLUTE AUTO 1.39 K/mm3 (0.84-5.20); LYMPHOCYTES PERCENT AUTO 28 % (21-46); MONOCYTES PERCENT AUTO 8 % (4-13); Mean Corpuscular HGB 28.6 pg (26.0-34.0); Mean Corpuscular HGB Conc 32.4 g/dL (31.5-36.5); Mean Platelet Volume 11.6 fL (9.1-12.4); NEUTROPHILS ABSOLUTE AUTO 3.07 K/mm3 (1.96-9.15); NEUTROPHILS PERCENT AUTO 62 % (41-73); Platelet Count 184 K/mm3 (150-400); RDW Coefficient Variation 12.9 % (11.7-14.2); RDW Standard Deviation 42.3 fL (35.1-46.3); Red Blood Cell Count 4.09 M/mm3 (3.80-5.20); White Blood Cell Count 4.92 K/mm3 (4.00-11.30)
[2019-04-23 14:45] LABS: Mean Corpuscular Volume 88 fL (80-100)
[2019-04-23 15:02] LABS: Alanine Aminotransfer (ALT/SGP 43 U/L (12-78); Albumin, Blood 3.8 g/dL (3.4-5.0); Alk Phos 204 U/L (50-136); Anion Gap 15 mmol/L (6-16); Aspartate Aminotrans (AST/SGOT 35 U/L (12-37); Beta-hydroxybutyrate 34.8 mg/dL (0.2-2.8); Bilirubin, Total 0.7 mg/dL (0.1-1.0); Blood Urea Nitrogen 12 mg/dL (8-24); Bun/Creatinine Ratio 19.2 (12.0-20.0); CO2, Blood 21 mmol/L (21-32); Calcium, Blood 9.5 mg/dL (8.5-10.1); Chloride, Blood 104 mmol/L (98-108); Creatinine, Blood 0.62 mg/dL (0.40-1.00); Globulin, Blood 3.7 g/dL (2.2-4.0); Glomerular Filtration Rate >60 (60-); Glucose, Blood 445 mg/dL (70-99); Potassium, Blood 4.1 mmol/L (3.5-5.5); Sodium, Blood 140 mmol/L (136-145); Total Protein, Blood 7.5 g/dL (6.4-8.2)
[2019-04-23 15:26] LABS: Source, Urine Clean Catch
[2019-04-23 15:30] LABS: Appearance, Urine Hazy (Clear); Bilirubin, Urine Neg (Neg); Blood, Urine 5+ (Neg); Color, Urine Yellow (P-Yellow); Glucose Qualitative, Urine 4+ (Neg); Ketones, Urine 3+ (Neg); Leukocyte Esterase, Urine Neg (Neg); Nitrite, Urine Neg (Neg); Protein, Urine 1+ (Neg); Specific Gravity, Urine 1.005 (1.003-1.022); Urobilinogen, Urine NORM (Normal)
[2019-04-23 16:23] LABS: Bacteria Few /hpf; Red Blood Cells, Urine TNTC /hpf (0-2); Squamous Epithelial Cells Few /hpf (Few); White Blood Cells, Urine 0-2 /hpf (0-5)
[2019-04-23 18:41] LABS: U Amphetamine Screen Not Detected; U Cannabinoids Screen DETECTED; U Cocaine Screen DETECTED
[2019-04-23 18:42] LABS: U Barbituate Screen Not Detected; U Benzodiazapine Screen Not Detected; U Buprenorphine Screen Not Detected; U Methadone Screen Not Detected; U Methamphetamine Screen Not Detected; U Opiates Screen Not Detected; U Oxycodone Screen Not Detected; U Phencyclidine Screen Not Detected; U Propoxyphene Screen Not Detected
--- NOTE | 2019-04-23 20:38 | NUR ---
2000: RECEVD REPORT AND PATIENT ARRIVED TO SCU SOTO. PT AMS, AGITATED AND TENDS TO FLAIL AROUND, DOESNT SEEM TO HEAR WHAT IS BEING SAID TO HER, HAS "SPAGHETTI LEGS" PT PLACE ON BSC TO VOID, AND SHE IS HAVING HER MENSTRUATION. PLACED PANTIES AND PAD. TRANSFERED PT TO BED. PT UNABLE TO RESPOND TO QUESTIONS FOR ADMIT. WILL USE EXISTING RECORDS TO COMPLETE AND MED REC TO BE DONE WHEN PATIENT IS MORE ALERT OR WHEN FAMILY BECOMES AVAILABLE. CALLED AND HAD PATIENT PUT ON CAMERA. BED LOW LOCKED AND ALARMED.
[2019-04-24 05:02] LABS: Anion Gap 8 mmol/L (6-16); Blood Urea Nitrogen 11 mg/dL (8-24); Bun/Creatinine Ratio 16.9 (12.0-20.0); CO2, Blood 24 mmol/L (21-32); Calcium, Blood 8.3 mg/dL (8.5-10.1); Chloride, Blood 110 mmol/L (98-108); Creatinine, Blood 0.65 mg/dL (0.40-1.00); Glomerular Filtration Rate >60 (60-); Glucose, Blood 243 mg/dL (70-99); Sodium, Blood 142 mmol/L (136-145)
--- NOTE | 2019-04-24 06:46 | NUR ---
PT DOING MUCH BETTER THIS MORNING, KNOWS WHERE SHE IS, KNOWS SHE RELAPSED// SPOKE WITH HER OF BETER CHOICES THAT ONLY SDHE
[2019-04-24] MEDS ORDERED: PROM25 PO (10:59)
--- NOTE | 2019-04-24 15:15 | NUR ---
DISCHARGE PT DISCHARGED TO HOME. THIS RN EXPLAINED DISCHARGE INSTRUCTIONS AND MEDICATIONS TO PT AND SHE REPORTS SHE UNDERSTANDS. PT RECEIVED INFORMATION FOR DRUG REHAB FROM EMBROIDERY ASSISTANT. PT'S IV REMOVED WITHOUT DIFFICULTY. PT TRANSFERRED TO PRIVATE VEHILCE VIA WHEELCHAIR BY [employer]. PT'S BELONGINGS WITH PT.
== END 2019-04-24 13:22 | disposition home or self-care (01) ==
LOC: ER 13:33 → MEDS 13:34 → ER 19:35 → MEDS 19:35 → ENPENDDIS 04-24 12:45 → MEDS 04-24 13:22
PROVIDERS: Emergency Medicine; Internal Medicine; ADMIT Internal Medicine
DX: F14.10 Cocaine abuse, uncomplicated (principal); R65.10 Systemic inflammatory response syndrome (SIRS) of non-infectious origin without acute organ dysfunction; E10.43 Type 1 diabetes mellitus with diabetic autonomic (poly)neuropathy; K31.84 Gastroparesis; F31.9 Bipolar disorder, unspecified; K86.1 Other chronic pancreatitis; F17.210 Nicotine dependence, cigarettes, uncomplicated; F41.9 Anxiety disorder, unspecified; G47.00 Insomnia, unspecified; K21.9 Gastro-esophageal reflux disease without esophagitis; K86.89 Other specified diseases of pancreas; F12.10 Cannabis abuse, uncomplicated; Z96.0 Presence of urogenital implants; Z97.8 Presence of other specified devices; Z88.5 Allergy status to narcotic agent; Z88.6 Allergy status to analgesic agent; Z88.8 Allergy status to other drugs, medicaments and biological substances; Z79.4 Long term (current) use of insulin; Z79.899 Other long term (current) drug therapy
CPT/HCPCS: 36415; 80048; 80053; 81001; 82010; 82803; 82947; 85025; 96361; 96374; 96375; 99285-25; G0480; J0780; J1630; J1885; J2060; J2550; J7030; J7120

== ENCOUNTER → 2019-05-17 | Outpatient (CLI) | payer OTHER ==
[~2019-05-17] MED LIST changes: +BASAGLAR K100 UNIT/1; -BASAGLAR K100 UNIT/1 SC; +PHENERGAN25 MG PR
== END | disposition home or self-care (01) ==
LOC: LAB SHORT 18:49 → LAB 18:49
DX: L08.89 Other specified local infections of the skin and subcutaneous tissue (principal)
CPT/HCPCS: 87070; 87205

== ENCOUNTER 2019-06-22 17:15 | Emergency (ER) | payer OTHER ==
[~2019-06-22] VITALS: Ht 165.1 cm; Wt 56.7 kg
[~2019-06-22 17:15] MED LIST changes: -PHENERGAN25 MG PR
[2019-06-22 17:45] LABS: Source, Urine Clean Catch
[2019-06-22 17:48] LABS: Bilirubin, Urine Neg (Neg); Blood, Urine Neg (Neg); Glucose Qualitative, Urine 4+ (Neg); Ketones, Urine 2+ (Neg); Leukocyte Esterase, Urine Neg (Neg); Nitrite, Urine Neg (Neg); Protein, Urine Neg (Neg); Urobilinogen, Urine NORM (Normal); pH, Urine 6.5 (5.0-8.0)
[2019-06-22 17:55] LABS: Appearance, Urine Clear (Clear); Color, Urine Pale Yellow (P-Yellow)
[2019-06-22 18:12] LABS: BASOPHILS ABSOLUTE AUTO 0.07 K/mm3 (0.00-0.23); BASOPHILS PERCENT AUTO 1 % (0-2); EOSINOPHILS ABSOLUTE AUTO 0.03 K/mm3 (0.00-0.68); EOSINOPHILS PERCENT AUTO 0 % (0-6); Hematocrit 37.2 % (33.0-51.0); Hemoglobin 12.1 g/dL (11.5-16.0); IMMATURE GRAN ABSOLUTE AUTO 0.04 K/mm3 (0.00-0.10); IMMATURE GRAN PERCENT AUTO 1 % (0-1); LYMPHOCYTES ABSOLUTE AUTO 2.73 K/mm3 (0.84-5.20); LYMPHOCYTES PERCENT AUTO 34 % (21-46); MONOCYTES ABSOLUTE AUTO 0.59 K/mm3 (0.16-1.47); MONOCYTES PERCENT AUTO 7 % (4-13); Mean Corpuscular HGB 28.3 pg (26.0-34.0); Mean Corpuscular HGB Conc 32.5 g/dL (31.5-36.5); Mean Corpuscular Volume 87 fL (80-100); NEUTROPHILS ABSOLUTE AUTO 4.56 K/mm3 (1.96-9.15); NEUTROPHILS PERCENT AUTO 57 % (41-73); RDW Coefficient Variation 13.2 % (11.7-14.2); RDW Standard Deviation 42.2 fL (35.1-46.3); Red Blood Cell Count 4.27 M/mm3 (3.80-5.20); White Blood Cell Count 8.02 K/mm3 (4.00-11.30)
[2019-06-22 18:22] LABS: Alanine Aminotransfer (ALT/SGP 70 U/L (12-78); Albumin, Blood 3.7 g/dL (3.4-5.0); Albumin/Globulin Ratio 0.8 (0.8-1.8); Alk Phos 232 U/L (50-136); Anion Gap 11 mmol/L (6-16); Aspartate Aminotrans (AST/SGOT 42 U/L (12-37); Bilirubin, Total 1.5 mg/dL (0.1-1.0); Blood Urea Nitrogen 22 mg/dL (8-24); Bun/Creatinine Ratio 22.7 (12.0-20.0); CO2, Blood 18 mmol/L (21-32); Calcium, Blood 10.1 mg/dL (8.5-10.1); Chloride, Blood 100 mmol/L (98-108); Creatinine, Blood 0.97 mg/dL (0.40-1.00); Globulin, Blood 4.4 g/dL (2.2-4.0); Glomerular Filtration Rate >60 (60-); Glucose, Blood 541 mg/dL (70-99); Potassium, Blood 4.5 mmol/L (3.5-5.5); Sodium, Blood 129 mmol/L (136-145); Total Protein, Blood 8.1 g/dL (6.4-8.2)
[2019-06-22 18:35] LABS: Mean Platelet Volume 12.5 fL (9.1-12.4); Platelet Count 181 K/mm3 (150-400)
[2019-06-22] MEDS ORDERED: PHENERGAN25 MG PR (19:33)
[2019-06-22] MEDS ORDERED: PROM25 PO (19:33)
[2019-06-22 19:50] LABS: Calcium, Ionized (POC) 1.36 mmol/L (1.10-1.46); Chloride (POC) 101 mmol/L (98-108); Creatinine (POC) 0.8 mg/dL (0.6-1.0); Glucose (ISTAT POC) 414 mg/dL (70-99); Hemoglobin (POC) 12.6 g/dL (12.0-16.0); Potassium (POC) 3.9 mmol/L (3.5-5.5); Sodium (POC) 134 mmol/L (135-148); Total CO2 (POC) 23 mmol/L (21-32)
== END 2019-06-22 20:21 | disposition home or self-care (01) ==
LOC: ER 17:15
PROVIDERS: Emergency Medicine; Physician Assistant
DX: E10.65 Type 1 diabetes mellitus with hyperglycemia (principal); R10.9 Unspecified abdominal pain; F12.90 Cannabis use, unspecified, uncomplicated; F31.9 Bipolar disorder, unspecified; K21.9 Gastro-esophageal reflux disease without esophagitis; F41.9 Anxiety disorder, unspecified; F17.210 Nicotine dependence, cigarettes, uncomplicated; Z88.5 Allergy status to narcotic agent; Z88.8 Allergy status to other drugs, medicaments and biological substances; Z79.899 Other long term (current) drug therapy
CPT/HCPCS: 80047; 80053; 81003; 82010; 82947; 83690; 85014; 85025; 96361; 96374; 96375; 96376; 99284-25; J1200; J2550; J2765; J7120

== ENCOUNTER 2019-08-22 11:50 | Emergency (ER) | payer OTHER ==
[~2019-08-22] VITALS: Ht 165.1 cm; Wt 59.9 kg
[~2019-08-22 11:50] MED LIST changes: +Cephalexin500 MG PO; +PHENERGAN25 MG PR
[2019-08-22 12:35] LABS: BASOPHILS ABSOLUTE AUTO 0.03 K/mm3 (0.00-0.23); BASOPHILS PERCENT AUTO 0 % (0-2); EOSINOPHILS PERCENT AUTO 0 % (0-6); Hematocrit 34.6 % (33.0-51.0); Hemoglobin 11.3 g/dL (11.5-16.0); IMMATURE GRAN ABSOLUTE AUTO 0.03 K/mm3 (0.00-0.10); IMMATURE GRAN PERCENT AUTO 0 % (0-1); LYMPHOCYTES ABSOLUTE AUTO 2.34 K/mm3 (0.84-5.20); LYMPHOCYTES PERCENT AUTO 34 % (21-46); MONOCYTES PERCENT AUTO 7 % (4-13); Mean Corpuscular HGB 28.2 pg (26.0-34.0); Mean Corpuscular HGB Conc 32.7 g/dL (31.5-36.5); Mean Corpuscular Volume 86 fL (80-100); Mean Platelet Volume 11.7 fL (9.1-12.4); NEUTROPHILS ABSOLUTE AUTO 3.93 K/mm3 (1.96-9.15); NEUTROPHILS PERCENT AUTO 58 % (41-73); Platelet Count 177 K/mm3 (150-400); RDW Standard Deviation 43.8 fL (35.1-46.3); Red Blood Cell Count 4.01 M/mm3 (3.80-5.20); White Blood Cell Count 6.83 K/mm3 (4.00-11.30)
[2019-08-22 12:40] LABS: Source, Urine Clean Catch
[2019-08-22 12:46] LABS: Bilirubin, Urine Neg (Neg); Blood, Urine 4+ (Neg); Glucose Qualitative, Urine 4+ (Neg); Ketones, Urine Neg (Neg); Leukocyte Esterase, Urine 1+ (Neg); Nitrite, Urine Neg (Neg); Protein, Urine Neg (Neg); Specific Gravity, Urine 1.015 (1.003-1.022); Urobilinogen, Urine NORM (Normal)
[2019-08-22 12:55] LABS: Alanine Aminotransfer (ALT/SGP 109 U/L (12-78); Albumin, Blood 3.7 g/dL (3.4-5.0); Albumin/Globulin Ratio 0.9 (0.8-1.8); Alk Phos 218 U/L (50-136); Anion Gap 4 mmol/L (6-16); Aspartate Aminotrans (AST/SGOT 53 U/L (12-37); Bilirubin, Total 0.6 mg/dL (0.1-1.0); Blood Urea Nitrogen 16 mg/dL (8-24); Bun/Creatinine Ratio 15.5 (12.0-20.0); CO2, Blood 27 mmol/L (21-32); Calcium, Blood 9.3 mg/dL (8.5-10.1); Chloride, Blood 105 mmol/L (98-108); Creatinine, Blood 1.03 mg/dL (0.40-1.00); Glomerular Filtration Rate >60 (60-); Glucose, Blood 241 mg/dL (70-99); Potassium, Blood 3.9 mmol/L (3.5-5.5); Sodium, Blood 136 mmol/L (136-145); Total Protein, Blood 7.7 g/dL (6.4-8.2)
[2019-08-22 13:14] LABS: Appearance, Urine Hazy (Clear); Color, Urine Yellow (P-Yellow)
[2019-08-22 13:16] LABS: Bacteria Few /hpf; Squamous Epithelial Cells Mod /hpf (Few)
[2019-08-22 14:25] LABS: U Amphetamine Screen Not Detected; U Barbituate Screen Not Detected; U Benzodiazapine Screen Not Detected; U Buprenorphine Screen Not Detected; U Cannabinoids Screen DETECTED; U Cocaine Screen Not Detected; U Methadone Screen Not Detected; U Methamphetamine Screen Not Detected; U Opiates Screen Not Detected; U Oxycodone Screen Not Detected; U Phencyclidine Screen Not Detected; U Propoxyphene Screen Not Detected
[2019-08-22] MEDS ORDERED: Sucralfate1 GM PO (14:57)
== END 2019-08-22 14:57 | disposition home or self-care (01) ==
LOC: ER 11:50
PROVIDERS: Emergency Medicine; Physician Assistant
DX: E10.43 Type 1 diabetes mellitus with diabetic autonomic (poly)neuropathy (principal); K31.84 Gastroparesis; K21.0 Gastro-esophageal reflux disease with esophagitis; F31.9 Bipolar disorder, unspecified; G83.89 Other specified paralytic syndromes; F11.10 Opioid abuse, uncomplicated; F41.9 Anxiety disorder, unspecified; K86.1 Other chronic pancreatitis; G47.00 Insomnia, unspecified; F17.210 Nicotine dependence, cigarettes, uncomplicated; Z88.8 Allergy status to other drugs, medicaments and biological substances; Z88.6 Allergy status to analgesic agent; Z79.899 Other long term (current) drug therapy
CPT/HCPCS: 36415; 80053; 81001; 82947; 83690; 85025; 87086; J1200; J2765; J7030

== ENCOUNTER → 2019-10-08 | Outpatient (CLI) | payer OTHER ==
[~2019-10-08] MED LIST changes: -BACL10 PO; +BACL20 PO; -BASAGLAR K100 UNIT/1; +BASAGLAR K100 UNIT/2 SC; -Cymbalta20 MG PO; +DULO60 PO; +OLANZAPINE10 MG PO; +OLANZAPINE2.5 MG PO; +Sucralfate1 GM PO
== END | disposition home or self-care (01) ==
LOC: LAB 20:19 → LAB SHORT 20:19
DX: L02.91 Cutaneous abscess, unspecified (principal)
CPT/HCPCS: 87070; 87075; 87205

== ENCOUNTER 2019-10-14 19:12 | Inpatient (IN) | payer OTHER ==
[~2019-10-14] VITALS: Ht 165.1 cm; Wt 55.3 kg
[~2019-10-14 19:12] MED LIST changes: -BACL20 PO; -BASAGLAR K100 UNIT/2 SC; -DULO60 PO; -Humalog100 UNIT/1 SC; -OLANZAPINE10 MG PO; -OLANZAPINE2.5 MG PO; -OMEPRAZOLE20 MG PO
[2019-10-14 19:45] LABS: Calcium, Ionized (POC) 1.02 mmol/L (1.10-1.46); Chloride (POC) 100 mmol/L (98-108); Glucose (ISTAT POC) 696 mg/dL (70-99); Hemoglobin (POC) 13.6 g/dL (12.0-16.0); Potassium (POC) 5.7 mmol/L (3.5-5.5); Sodium (POC) 130 mmol/L (135-148); Total CO2 (POC) 10 mmol/L (21-32)
[2019-10-14 19:48] LABS: BASOPHILS ABSOLUTE AUTO 0.07 K/mm3 (0.00-0.23); BASOPHILS PERCENT AUTO 0 % (0-2); Base Excess Venous -17.1 mmol/L; Bicarbonate Venous 13.7 mmol/L (24.0-30.0); EOSINOPHILS PERCENT AUTO 0 % (0-6); Hematocrit 39.3 % (33.0-51.0); Hemoglobin 12.9 g/dL (11.5-16.0); IMMATURE GRAN ABSOLUTE AUTO 0.16 K/mm3 (0.00-0.10); IMMATURE GRAN PERCENT AUTO 1 % (0-1); LYMPHOCYTES ABSOLUTE AUTO 1.32 K/mm3 (0.84-5.20); LYMPHOCYTES PERCENT AUTO 7 % (21-46); MONOCYTES ABSOLUTE AUTO 1.05 K/mm3 (0.16-1.47); MONOCYTES PERCENT AUTO 6 % (4-13); Mean Corpuscular HGB 27.7 pg (26.0-34.0); Mean Corpuscular HGB Conc 32.8 g/dL (31.5-36.5); Mean Corpuscular Volume 85 fL (80-100); Mean Platelet Volume 11.8 fL (9.1-12.4); NEUTROPHILS ABSOLUTE AUTO 16.06 K/mm3 (1.96-9.15); NEUTROPHILS PERCENT AUTO 86 % (41-73); PCO2 Venous 15.7 mmHg (38-42); PO2 Venous 160 mmHg (38-42); Platelet Count 185 K/mm3 (150-400); RDW Coefficient Variation 13.2 % (11.7-14.2); RDW Standard Deviation 40.5 fL (35.1-46.3); Red Blood Cell Count 4.65 M/mm3 (3.80-5.20); White Blood Cell Count 18.66 K/mm3 (4.00-11.30); pH Blood Venous 7.35 (7.34-7.37)
[2019-10-14] MEDS ORDERED: Humalog100 UNIT/1 (19:59)
[2019-10-14] MEDS ORDERED: OLANZAPINE2.5 MG PO (20:00)
[2019-10-14] MEDS ORDERED: OMEPRAZOLE20 MG PO (20:00)
[2019-10-14] MEDS ORDERED: DULO60 PO (20:01)
[2019-10-14] MEDS ORDERED: OLANZAPINE10 MG PO (20:01)
[2019-10-14] MEDS ORDERED: BASAGLAR K100 UNIT/2 SC (20:02)
[2019-10-14] MEDS ORDERED: BACL20 PO (20:03)
[2019-10-14 21:15] LABS: Source, Urine Catheter
[2019-10-14 21:17] LABS: Bilirubin, Urine Neg (Neg); Blood, Urine 1+ (Neg); Glucose Qualitative, Urine 4+ (Neg); Ketones, Urine 4+ (Neg); Leukocyte Esterase, Urine Neg (Neg); Nitrite, Urine Neg (Neg); Protein, Urine Neg (Neg); Specific Gravity, Urine 1.015 (1.003-1.022); Urobilinogen, Urine NORM (Normal)
[2019-10-14 21:25] LABS: Appearance, Urine Clear (Clear); Color, Urine Yellow (P-Yellow)
[2019-10-14 21:26] LABS: Bacteria Many /hpf; Red Blood Cells, Urine 0-2 /hpf (0-2); Squamous Epithelial Cells Mod /hpf (Few)
[2019-10-14 21:35] LABS: Magnesium, Blood 1.8 mg/dL (1.6-2.4)
[2019-10-14 21:40] LABS: Alanine Aminotransfer (ALT/SGP 28 U/L (12-78); Albumin, Blood 3.5 g/dL (3.4-5.0); Albumin/Globulin Ratio 0.9 (0.8-1.8); Alk Phos 137 U/L (50-136); Anion Gap 21 mmol/L (6-16); Aspartate Aminotrans (AST/SGOT 16 U/L (12-37); Bilirubin, Total 1.2 mg/dL (0.1-1.0); Blood Urea Nitrogen 27 mg/dL (8-24); Bun/Creatinine Ratio 31.7 (12.0-20.0); CO2, Blood 9 mmol/L (21-32); Calcium, Blood 7.4 mg/dL (8.5-10.1); Chloride, Blood 110 mmol/L (98-108); Creatinine, Blood 0.85 mg/dL (0.40-1.00); Globulin, Blood 3.7 g/dL (2.2-4.0); Glomerular Filtration Rate >60 (60-); Glucose, Blood 469 mg/dL (70-99); Potassium, Blood 3.5 mmol/L (3.5-5.5); Sodium, Blood 140 mmol/L (136-145); Total Protein, Blood 7.2 g/dL (6.4-8.2)
--- NOTE | 2019-10-14 22:00 | NUR ---
ASSUMED CARE OF PT AT 2130. REPORT RECEIVED. PT SLIDE TRANSFERRED TO BED. PT DEMONSTRATES BEING VERY ANXIOUS, STATES THAT SHE HAS BEEN VERY NAUSEAS AND WANTED MEDICATIONS. PT ON INSULIN DRIP AT 3.1 UNITS/HOUR WHICH WAS CHANGED TO 3 UNITS PER HOUR. PT GOOD HISTORIAN. WILL REVIEW CHART AND PLAN OF CARE FOR THIS PT.
--- NOTE | 2019-10-14 23:30 | NUR ---
PT HAS BEEN TO CT AND RETURNED FOR ABDOMEN AND PELVIS. CALL TO SYDNEE RENO TREE TAPPING LABORER-HOSPITALIST FOR REPORT. LAB VALUES AND GLUCOSE TRENDS ALSO GIVEN. ORDERS RECEIVED. PT HAS BEEN UP TO BEDSIDE COMMODE WITH ASSIST WHEREAS SHE VOIDS 600-650 ML AT A TIME. INSULIN DRIP AT 1.5 UNITS PER HOUR. CONTINUING WITH Q 1-2 HOUR GLUCOSE CHECKS.
[2019-10-15 00:47] LABS: Anion Gap 16 mmol/L (6-16); Blood Urea Nitrogen 25 mg/dL (8-24); Bun/Creatinine Ratio 28.6 (12.0-20.0); CO2, Blood 14 mmol/L (21-32); Calcium, Blood 7.9 mg/dL (8.5-10.1); Chloride, Blood 110 mmol/L (98-108); Creatinine, Blood 0.87 mg/dL (0.40-1.00); Glomerular Filtration Rate >60 (60-); Glucose, Blood 323 mg/dL (70-99); Potassium, Blood 4.4 mmol/L (3.5-5.5); Sodium, Blood 140 mmol/L (136-145)
[2019-10-15 04:31] LABS: BASOPHILS ABSOLUTE AUTO 0.03 K/mm3 (0.00-0.23); BASOPHILS PERCENT AUTO 0 % (0-2); EOSINOPHILS PERCENT AUTO 0 % (0-6); Hematocrit 37.7 % (33.0-51.0); Hemoglobin 12.1 g/dL (11.5-16.0); IMMATURE GRAN ABSOLUTE AUTO 0.12 K/mm3 (0.00-0.10); IMMATURE GRAN PERCENT AUTO 1 % (0-1); LYMPHOCYTES ABSOLUTE AUTO 1.76 K/mm3 (0.84-5.20); LYMPHOCYTES PERCENT AUTO 11 % (21-46); MONOCYTES PERCENT AUTO 4 % (4-13); Mean Corpuscular HGB 27.9 pg (26.0-34.0); Mean Corpuscular HGB Conc 32.1 g/dL (31.5-36.5); Mean Corpuscular Volume 87 fL (80-100); Mean Platelet Volume 11.3 fL (9.1-12.4); NEUTROPHILS ABSOLUTE AUTO 13.53 K/mm3 (1.96-9.15); NEUTROPHILS PERCENT AUTO 84 % (41-73); Platelet Count 160 K/mm3 (150-400); RDW Coefficient Variation 13.3 % (11.7-14.2); RDW Standard Deviation 42.5 fL (35.1-46.3); Red Blood Cell Count 4.33 M/mm3 (3.80-5.20); White Blood Cell Count 16.14 K/mm3 (4.00-11.30)
[2019-10-15 04:50] LABS: Anion Gap 17 mmol/L (6-16); Blood Urea Nitrogen 20 mg/dL (8-24); Bun/Creatinine Ratio 25.6 (12.0-20.0); CO2, Blood 12 mmol/L (21-32); Calcium, Blood 8.2 mg/dL (8.5-10.1); Chloride, Blood 114 mmol/L (98-108); Creatinine, Blood 0.78 mg/dL (0.40-1.00); Glomerular Filtration Rate >60 (60-); Glucose, Blood 284 mg/dL (70-99); Potassium, Blood 4.9 mmol/L (3.5-5.5); Sodium, Blood 143 mmol/L (136-145)
[2019-10-15 05:09] LABS: Beta-hydroxybutyrate 67.6 mg/dL (0.2-2.8); Phosphorus, Blood 2.3 mg/dL (2.5-4.9)
--- NOTE | 2019-10-15 07:14 | NUR ---
REC'D REPORT FROM ELI NÚÑEZ. CRITICAL GTTS CHECKED AT THE BEDSIDE. CONTINUE TO MONITOR CBG'S PER ORDERS AND TITRATE INSULIN NECESSARY.
--- NOTE | 2019-10-15 07:15 | NUR ---
HAVE SWITCHED IV FLUIDS TO D5 1/2 NS AT 200 ML PER HOUR. CONTINUING WITH INSULIN AT 1.5 UNITS PER HOUR. PT HAS BEEN MEDICATED WITH DILAUDID 0.5MG AND 25 MG PHENERGAN FOR NAUSEA AND ABDOMINAL PAIN. PT CURRENTLY RESTING IN BED. AWAKENS EASILY. WILL CONTINUE TO MONITOR PT, AND WILL REPORT TO ONCOMING RN.
--- NOTE | 2019-10-15 07:45 | NUR ---
PT NAUSEOUS WITH DRY HEAVING. NO EMESIS. PT NOT DUE FOR PHENERGAN. PT REPORTS ZOFRAN MAKES HER "MORE NAUSEOUS." PT ALREADY REC'ING SCHEDULED REGLAN. PT REPORTS 8/10 MID ABD PAIN, DILAUDID IV GIVEN PER ORDERS.
--- NOTE | 2019-10-15 08:12 | NUR ---
PT UPDATE: PT REPORTS MID ABD PAIN IMPROVED. NOW A 11/18. REPORTS NAUSEA IS ALSO IMPROVED.
[2019-10-15 08:32] LABS: Anion Gap 14 mmol/L (6-16); Blood Urea Nitrogen 17 mg/dL (8-24); Bun/Creatinine Ratio 20.8 (12.0-20.0); CO2, Blood 13 mmol/L (21-32); Calcium, Blood 8.1 mg/dL (8.5-10.1); Chloride, Blood 116 mmol/L (98-108); Creatinine, Blood 0.82 mg/dL (0.40-1.00); Glomerular Filtration Rate >60 (60-); Glucose, Blood 338 mg/dL (70-99); Potassium, Blood 4.7 mmol/L (3.5-5.5); Sodium, Blood 143 mmol/L (136-145)
--- NOTE | 2019-10-15 11:08 | NUR ---
PT UPDATE: PT REPORTS CONTINUED PAIN IN MID ABD, INCREASING TO 12/18. MEDICATED WITH DILAUDID 0.5MG IVP PER ORDERS.
--- NOTE | 2019-10-15 11:39 | NUR ---
CALLED DR PATIÑO TO ASK FOR RX FOR C/O VAGINAL ITCHING. SEE NEW ORDERS.
[2019-10-15 12:58] LABS: Anion Gap 10 mmol/L (6-16); Blood Urea Nitrogen 14 mg/dL (8-24); Bun/Creatinine Ratio 18.9 (12.0-20.0); CO2, Blood 18 mmol/L (21-32); Chloride, Blood 111 mmol/L (98-108); Creatinine, Blood 0.74 mg/dL (0.40-1.00); Glomerular Filtration Rate >60 (60-); Glucose, Blood 280 mg/dL (70-99); Potassium, Blood 4.2 mmol/L (3.5-5.5); Sodium, Blood 139 mmol/L (136-145)
--- NOTE | 2019-10-15 13:32 | NUR ---
PT UPATE: DISCUSSED D/C'ING INSULIN GTT WITH DR PATIÑO. WILL WAIT 2 MORE HOURS TO TO DISCONTINUE GTT, THEN WILL RESUME ADA DIET AND AC/HS CHECKS AND RECHECK CHEM AT 1600.
--- NOTE | 2019-10-15 16:26 | NUR ---
SHIFT SUMMARY: PT ALERT AND ORIENTED X3. PT SEEMS TO BE IN BETTER SPIRITS THIS AFTERNOON, IN COMPARISION TO THIS AM. PT REPORTS CONTINUED MID ABD PAIN T/O AND HAS BEEN MEDICATED REGULARLY WITH DILAUDID IV PER ORDERS. PT ABLE TO MOVE SELF IN THE BED INDEPENDENTLY AND CALL APPROPRIATELY FOR NEEDS. LUNGS ARE CLEAR T/O BILATERALLY. HR REGULAR, SR/ST-90-100'S. IV SL'D AT THIS TIME. ABD SLIGHTLY DISTENDED, TENDER/GUARDED TO PALPATION. BT'S HYPERACTIVE X4 QUADS. ONE BM PER TOILET PER PT. PT VOIDING CLEAR/LIGHT YELLOW COLORED URINE. -FULL CODE -CONVERTING TO SQ INSULIN -CBG'S AC/HS, WITH LANTUS BID AND MED S/S INSULIN BEFORE EACH MEAL
[2019-10-15 16:29] LABS: Anion Gap 7 mmol/L (6-16); Blood Urea Nitrogen 11 mg/dL (8-24); Bun/Creatinine Ratio 16.8 (12.0-20.0); CO2, Blood 20 mmol/L (21-32); Calcium, Blood 8.3 mg/dL (8.5-10.1); Chloride, Blood 110 mmol/L (98-108); Creatinine, Blood 0.65 mg/dL (0.40-1.00); Glomerular Filtration Rate >60 (60-); Glucose, Blood 231 mg/dL (70-99); Potassium, Blood 3.7 mmol/L (3.5-5.5); Sodium, Blood 137 mmol/L (136-145)
--- NOTE | 2019-10-15 19:24 | NUR ---
BEDSIDE REPORT GIVEN TO ELI NÚÑEZ AND HE IS NOW ASSUMING CARE OF THIS PT.
--- NOTE | 2019-10-15 20:00 | NUR ---
ASSUMED CARE OF PT AT 1915. REPORT RECEIVED AT BEDSIDE. PT PRESENTS IN BED. ALERT AND ORIENTED. PLEASANT AND COOPERATIVE WITH CARE AND ASSESSMENT. PT HAS BEEN INDEPENDENT IN ROOM. WILL REVIEW CHART AND PLAN OF CARE FOR THIS PT.
--- NOTE | 2019-10-15 22:00 | NUR ---
PT RECEIVED SUBLINGUAL NITRO SECONDARY TO 4/[address] PLAZA WAS IN DURING EVENING. PT STATES THAT THIS HAS RELIEVED CHEST PAIN. VSS. DR PEREIRA COMES IN TO SEE PT. ORDERS RECEIVED. PT RECEIVES SSI AND LANTUS INSULIN FOR ELEVATED BLOOD GLUCOSE. TEACHING DONE ON MEDICATION. PT VERBALIZES UNDERSTANDING. WILL CONTINUE TO MONITOR.
[2019-10-15 22:49] LABS: Glucose, Blood 539 mg/dL (70-99)
[2019-10-15 23:26] LABS: Alanine Aminotransfer (ALT/SGP 23 U/L (12-78); Albumin, Blood 3.8 g/dL (3.4-5.0); Alk Phos 137 U/L (50-136); Anion Gap 21 mmol/L (6-16); Aspartate Aminotrans (AST/SGOT 15 U/L (12-37); Bilirubin, Total 1.1 mg/dL (0.1-1.0); Blood Urea Nitrogen 15 mg/dL (8-24); Bun/Creatinine Ratio 20.1 (12.0-20.0); CO2, Blood 11 mmol/L (21-32); Calcium, Blood 8.8 mg/dL (8.5-10.1); Chloride, Blood 104 mmol/L (98-108); Creatinine, Blood 0.75 mg/dL (0.40-1.00); Glomerular Filtration Rate >60 (60-); Potassium, Blood 4.1 mmol/L (3.5-5.5); Sodium, Blood 136 mmol/L (136-145); Total Protein, Blood 7.8 g/dL (6.4-8.2)
--- NOTE | 2019-10-16 | NUR ---
INSULIN DRIP HAS BEEN RESTARTED AT 1.5 UNITS PER HOUR. CALL HAS BEEN MADE TO DR B[place], AND TO [facility] WITH ORDERS BEING RECEIVED. PT BACK IN DKA. DISCUSSED WITH PT PLAN OF ACTION WITH INSULIN DRIP AND HOURLY GLUCOSE CHECKS. OF CONCERN, PT HAD RECEIVED 45 UNITS OF LANTUS PER ORDER. VERY CAREFUL PROGRESS WITH INSULIN DRIP TO FOLLOW. PT MEDICATED WITH DILAUDID AND PHENERGAN FOR COMPLAINTS OF NAUSEA, AND ABDOMINAL PAIN.
[2019-10-16 02:33] LABS: BASOPHILS ABSOLUTE AUTO 0.03 K/mm3 (0.00-0.23); BASOPHILS PERCENT AUTO 0 % (0-2); EOSINOPHILS PERCENT AUTO 0 % (0-6); Hematocrit 35.9 % (33.0-51.0); Hemoglobin 11.7 g/dL (11.5-16.0); IMMATURE GRAN ABSOLUTE AUTO 0.13 K/mm3 (0.00-0.10); IMMATURE GRAN PERCENT AUTO 1 % (0-1); LYMPHOCYTES ABSOLUTE AUTO 1.43 K/mm3 (0.84-5.20); LYMPHOCYTES PERCENT AUTO 8 % (21-46); MONOCYTES ABSOLUTE AUTO 0.88 K/mm3 (0.16-1.47); MONOCYTES PERCENT AUTO 5 % (4-13); Mean Corpuscular HGB 28.2 pg (26.0-34.0); Mean Corpuscular HGB Conc 32.6 g/dL (31.5-36.5); Mean Corpuscular Volume 87 fL (80-100); Mean Platelet Volume 10.7 fL (9.1-12.4); NEUTROPHILS ABSOLUTE AUTO 14.69 K/mm3 (1.96-9.15); NEUTROPHILS PERCENT AUTO 86 % (41-73); Platelet Count 145 K/mm3 (150-400); RDW Coefficient Variation 13.6 % (11.7-14.2); RDW Standard Deviation 42.7 fL (35.1-46.3); Red Blood Cell Count 4.15 M/mm3 (3.80-5.20); White Blood Cell Count 17.16 K/mm3 (4.00-11.30)
[2019-10-16 02:48] LABS: Anion Gap 13 mmol/L (6-16); Blood Urea Nitrogen 14 mg/dL (8-24); Bun/Creatinine Ratio 19.7 (12.0-20.0); CO2, Blood 18 mmol/L (21-32); Calcium, Blood 8.4 mg/dL (8.5-10.1); Chloride, Blood 110 mmol/L (98-108); Creatinine, Blood 0.71 mg/dL (0.40-1.00); Glomerular Filtration Rate >60 (60-); Glucose, Blood 264 mg/dL (70-99); Potassium, Blood 4.2 mmol/L (3.5-5.5); Sodium, Blood 141 mmol/L (136-145)
[2019-10-16 02:52] LABS: Albumin, Blood 3.6 g/dL (3.4-5.0); Anion Gap 13 mmol/L (6-16); Blood Urea Nitrogen 15 mg/dL (8-24); Bun/Creatinine Ratio 21.2 (12.0-20.0); CO2, Blood 18 mmol/L (21-32); Calcium, Blood 8.3 mg/dL (8.5-10.1); Chloride, Blood 110 mmol/L (98-108); Creatinine, Blood 0.71 mg/dL (0.40-1.00); Glomerular Filtration Rate >60 (60-); Glucose, Blood 261 mg/dL (70-99); Phosphorus, Blood 1.9 mg/dL (2.5-4.9); Potassium, Blood 4.1 mmol/L (3.5-5.5); Sodium, Blood 141 mmol/L (136-145)
--- NOTE | 2019-10-16 03:21 | NUR ---
PT HAS HAD COMPLAINT OF HEADACHE, AND NAUSEA. MEDICATED PT WITH FENTANYL, TYLENOL, MAALOX AND ZOFRAN WITH GOOD RELIEF. ACCESS SITE AT RIGHT RADIAL WNL. NO OOZING, NO HEMATOMA. PT HAS BEEN INSTRUCTED ON RADIAL SITE PRECAUTIONS. HAVE DONE TEACHING ON STENTS AND CORANARY ARTERIES. PT ASKS QUESTIONS. WILL CONTINUE TO MONITOR.
--- NOTE | 2019-10-16 04:00 | NUR ---
VSS. SEE PRN EMAR FOR PHENERGAN AND DILAUDID GIVEN. PT CONTINUES ON INSULIN WHICH WAS DECREASED TO 1 UNIT PER HOUR. AFTER RENAL PANEL RETURNED, CALL MADE TO DR B[place]. ORDERS RECEIVED. UPDATED PT WITH NEW ORDERS AND PLAN OF CARE.
--- NOTE | 2019-10-16 06:30 | NUR ---
PT HAS NEEDED TO HAVE INSULIN DRIP RESTARTED THIS SHIFT SECONDARY TO INCREASE IN BLOOD GLUCOSE > 500 WHEREAS ANION GAP INCREASED WITH INCREASE IN CO2 LEVELS. PT CONTINUES WITH Q 1 HOUR BLOOD GLUCOSE CHECKS. PT HAS REQUESTED DILAUDID, AND PHENERGAN WHEN SHE IS AWAKE. STATES HER ABDOMEN PAIN IS 7-10 AT ANY GIVEN TIME. HAVE MEDICATED PT. SHE HAS BEEN INDEPENDENT IN ROOM. VOIDS Q.S. WILL CONTINUE TO MONITOR PT, AND WILL REPORT OFF TO ONCOMING RN.
--- NOTE | 2019-10-16 07:00 | NUR ---
REC'D BEDSIDE REPORT FROM ELI NÚÑEZ AND NOW ASSUMING CARE OF PT.
[2019-10-16 07:11] LABS: Anion Gap 10 mmol/L (6-16); Blood Urea Nitrogen 11 mg/dL (8-24); Bun/Creatinine Ratio 16.2 (12.0-20.0); CO2, Blood 20 mmol/L (21-32); Calcium, Blood 8.4 mg/dL (8.5-10.1); Chloride, Blood 108 mmol/L (98-108); Creatinine, Blood 0.68 mg/dL (0.40-1.00); Glomerular Filtration Rate >60 (60-); Glucose, Blood 245 mg/dL (70-99); Sodium, Blood 138 mmol/L (136-145)
--- NOTE | 2019-10-16 09:56 | NUR ---
CALLED DR PATIÑO TO DISCUSS FURTHER TX PLAN CGB IS NOW >200. SEE NEW ORDERS.
--- NOTE | 2019-10-16 16:16 | NUR ---
PT C/O INCREASING NAUSEA A FEELS LIKE HER "BLOOD SUGAR IS HIGH." CBG READING 79, WHICH IS SIGNIFICANTLY LOWER THAN PT IS USED TO TOLERATING. PT MEDICATED WITH PHENERGAN IV AND GIVEN A SMALL AMT OF APPLE JUICE.
--- NOTE | 2019-10-16 18:16 | NUR ---
SHIFT SUMMARY: PT DOING BETTER IN COMPARISON TO YESTERDAY. PT HAS BEEN ABLE TO REMAIN OFF INSULIN AND BLOOD SUGARS REMAIN <200. CBG'S AC/HS. PT IS NOW MEDICAL STATUS AND WILL TNX WHEN A BED IS AVAILABLE. PT DOES CONTINUE TO C/O OF MID ABD PAIN, BUT NOT NEEDED MUCH PAIN MEDICATION COVERAGE TODAY. PT HAS INTERMITTENT NAUSEA AND HAS BEEN ABLE TO TAKE IN A SMALL AMT OF CLEAR LIQUIDS TODAY. MEDICATING WITH ZOFRAN PRN FOR CONTINUED NAUSEA. IV IN LT FA SL'D. HR REGULAR, SR/ST 90-100'S.
--- NOTE | 2019-10-16 19:19 | NUR ---
REPORTED OFF TO ELI HARMAN WHOM IS NOW GOING TO ASSUME CARE OF THIS PT.
--- NOTE | 2019-10-16 20:50 | NUR ---
PT RESTING IN BED. C/O PAIN IN ABD. GAVE DILAUDID AND WARM BLANKET PER PT REQUEST. C/O HEARTBURN. STATES REGLAN WORKS FOR A LITTLE BIT. UP AD SOLANGE IN ROOM WITHOUT DIFFICULTY. USES CALL LIGHT OR COMES TO THE DOOR TO ASK FOR THINGS. CBG WAS 52 TONIGHT. PT IS DRINKING APPLE JUICE NOW. WILL MONITOR CLOSELY. NO SIGN OF DISTRESS NOW.
--- NOTE | 2019-10-16 23:52 | NUR ---
PT FEELS IF CBG IS LOW. IT WAS 55, GAVE APPLE JUICE. PT IS A/O X4. AFTER DRINKING APPLE JUICE EARLIER HER CBG CAME UP TO 101. HAVE BEEN CHECKING EVERY 2 HRS OR LESS TO MONITOR CLOSELY.
--- NOTE | 2019-10-17 04:13 | NUR ---
PT IS A/O X4, ABLE TO AMBULATE INDEP. CBG WAS 43 THIS AM, GAVE PEPSI PER PT REQUEST AND IT IS UP TO 82 NOW.
[2019-10-17 04:17] LABS: Anion Gap 6 mmol/L (6-16); Blood Urea Nitrogen 8 mg/dL (8-24); Bun/Creatinine Ratio 12.6 (12.0-20.0); CO2, Blood 26 mmol/L (21-32); Calcium, Blood 8.8 mg/dL (8.5-10.1); Chloride, Blood 109 mmol/L (98-108); Creatinine, Blood 0.63 mg/dL (0.40-1.00); Glomerular Filtration Rate >60 (60-); Glucose, Blood 47 mg/dL (70-99); Sodium, Blood 141 mmol/L (136-145)
--- NOTE | 2019-10-17 06:06 | NUR ---
SUMMARY PT RESTING IN BED. C/O ABD PAIN AND NAUSEA T/O THE NIGHT. REQUESTING DILAUDID Q2HR. GAVE PHENERGAN ONE TIME. GLUCOSE HAS BEEN LOW ALL NIGHT. WITH AM LABS IT WAS CRITICALLY LOW AT 43. PT DRANK A PEPSI AND IT CAME UP TO 82. HAVE BEEN MONITORING CLOSELY ALL NIGHT. PT GETS A LITTLE SWEATY WHEN GLUCOSE IS LOW BUT OTHERWISE ASYMPTOMATIC AND A/O X4. PT MOVES SELF IN BED AND WALKS SELF TO BATHROOM. PT WILL EVEN WALK OUT TO NURSES STATION AT TIMES. CALLED DR. BIRMINGHAM ABOUT LOW POTASSIUM THIS AM. NEW ORDERS FOR PO KCL. PT TOLERATED WELL. NO SIGN OF DISTRESS.
--- NOTE | 2019-10-17 07:30 | NUR ---
ASSUMED CARE: PT RESTING QUIETLY IN BED UPON ASSUMPTION OF CARE. NO ACUTE NEEDS OR CONCERNS AT THIS TIME.
--- NOTE | 2019-10-17 07:57 | NUR ---
PT'S CBG WAS IN 40S THIS AM. APPLE JUICE AND JELLOW PROVIDED. EATING BREAKFAST TRAY AT THIS TIME.
--- NOTE | 2019-10-17 08:53 | NUR ---
DR PATIÑO CAME TO SEE PT AND IS AWARE OF LOW CBG THIS AM AND THAT INSULINS WERE HELD. DR INSTRUCTED TO RECHECK AFTER BREAKFAST. RESULT GREATER THAN 200 SO INSTRUCTED TO GIVE 20 OF LANTUS AND SLIDING SCALE NOVOLOG. WILL RECHECK AFTER LUNCH TO DETERMINE IF SAFE FOR DISCHARGE.
[2019-10-17] MEDS ORDERED: CLOT10 MT (10:31)
[2019-10-17] MEDS ORDERED: PROM25S PR (10:32)
--- NOTE | 2019-10-17 11:37 | NUR ---
PT DISCHARGED AFTER AFTERNOON BLOOD SUGAR WAS APPROPRIATE FOR DISCHARGE. 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 IV DC'D WNL. TRANSPORTED OUT VIA [facility] STAFF. DECLINED FURTHER NEEDS OR CONCERNS.
[2019-10-18] MEDS ORDERED: NYST237S MT (19:00)
== END 2019-10-17 11:20 | disposition home or self-care (01) | DRG 638 ==
LOC: ER 19:12 → ICUW 21:29 → ICUE 21:29
PROVIDERS: Emergency Medicine; Internal Medicine; Nurse Practitioner Acute Care; ADMIT Family Medicine
DX: E10.10 Type 1 diabetes mellitus with ketoacidosis without coma (principal); K86.1 Other chronic pancreatitis; B37.81 Candidal esophagitis; F31.9 Bipolar disorder, unspecified; E10.43 Type 1 diabetes mellitus with diabetic autonomic (poly)neuropathy; K31.84 Gastroparesis; M79.7 Fibromyalgia; K86.89 Other specified diseases of pancreas; F17.200 Nicotine dependence, unspecified, uncomplicated; Z79.4 Long term (current) use of insulin
CPT/HCPCS: 36415; 71045; 74177; 80047; 80048; 80053; 80069; 81001; 82010; 82803; 82947; 83690; 83735; 84100; 84703; 85014; 85025; 87086; 93005; 93010; 96374; 96375; 99285-25; A9270; A9270-GY; C9113; J0780; J1170; J1200; J1815; J2550; J2765; J3475; J3480; J7030; J7042; J7060; Q9967

== ENCOUNTER 2019-10-28 08:37 | Inpatient (IN) | payer OTHER ==
[~2019-10-28 08:37] MED LIST changes: +BACL20 PO; +BASAGLAR K100 UNIT/2 SC; +CLOT10 MT; +DULO60 PO; +Humalog100 UNIT/1 SC; +NYST237S MT; +OLANZAPINE10 MG PO; +OLANZAPINE2.5 MG PO; +OMEPRAZOLE20 MG PO; +PROM25S PR
[2019-10-28 10:06] LABS: Source, Urine Clean Catch
[2019-10-28 10:11] LABS: Appearance, Urine Clear (Clear); Bilirubin, Urine Neg (Neg); Blood, Urine 3+ (Neg); Color, Urine Yellow (P-Yellow); Glucose Qualitative, Urine 4+ (Neg); Ketones, Urine 4+ (Neg); Leukocyte Esterase, Urine Neg (Neg); Nitrite, Urine Neg (Neg); Protein, Urine 1+ (Neg); Urobilinogen, Urine NORM (Normal)
[2019-10-28 10:21] LABS: Bacteria Rare /hpf; Squamous Epithelial Cells Mod /hpf (Few); Urine Culture Indicated No (No); White Blood Cells, Urine Not Seen /hpf (0-5)
[2019-10-28 10:36] LABS: Extra Purple Top Tube Done
[2019-10-28 10:45] LABS: BASOPHILS ABSOLUTE AUTO 0.09 K/mm3 (0.00-0.23); BASOPHILS PERCENT AUTO 1 % (0-2); EOSINOPHILS PERCENT AUTO 0 % (0-6); Hematocrit 42.5 % (33.0-51.0); Hemoglobin 13.8 g/dL (11.5-16.0); IMMATURE GRAN ABSOLUTE AUTO 0.15 K/mm3 (0.00-0.10); IMMATURE GRAN PERCENT AUTO 1 % (0-1); LYMPHOCYTES ABSOLUTE AUTO 2.42 K/mm3 (0.84-5.20); LYMPHOCYTES PERCENT AUTO 13 % (21-46); MONOCYTES ABSOLUTE AUTO 0.67 K/mm3 (0.16-1.47); MONOCYTES PERCENT AUTO 4 % (4-13); Mean Corpuscular HGB 28.5 pg (26.0-34.0); Mean Corpuscular HGB Conc 32.5 g/dL (31.5-36.5); NEUTROPHILS ABSOLUTE AUTO 14.77 K/mm3 (1.96-9.15); NEUTROPHILS PERCENT AUTO 82 % (41-73); Platelet Count 305 K/mm3 (150-400); RDW Coefficient Variation 13.5 % (11.7-14.2); RDW Standard Deviation 42.3 fL (35.1-46.3); Red Blood Cell Count 4.85 M/mm3 (3.80-5.20)
[2019-10-28 10:47] LABS: Mean Corpuscular Volume 88 fL (80-100)
[2019-10-28 11:11] LABS: Alanine Aminotransfer (ALT/SGP 19 U/L (12-78); Albumin, Blood 4.3 g/dL (3.4-5.0); Alk Phos 149 U/L (50-136); Anion Gap 22 mmol/L (6-16); Aspartate Aminotrans (AST/SGOT 14 U/L (12-37); Bilirubin, Total 1.1 mg/dL (0.1-1.0); Blood Urea Nitrogen 19 mg/dL (8-24); Bun/Creatinine Ratio 19.4 (12.0-20.0); CO2, Blood 13 mmol/L (21-32); Calcium, Blood 9.5 mg/dL (8.5-10.1); Chloride, Blood 96 mmol/L (98-108); Creatinine, Blood 0.98 mg/dL (0.40-1.00); Globulin, Blood 4.4 g/dL (2.2-4.0); Glomerular Filtration Rate >60 (60-); Glucose, Blood 429 mg/dL (70-99); Potassium, Blood 4.2 mmol/L (3.5-5.5); Sodium, Blood 131 mmol/L (136-145); Total Protein, Blood 8.7 g/dL (6.4-8.2)
[2019-10-28 11:37] LABS: Base Excess Venous -18.3 mmol/L; Bicarbonate Venous 11.6 mmol/L (24.0-30.0); PO2 Venous 87.4 mmHg (38-42)
[2019-10-28 11:38] LABS: pH Blood Venous 7.14 (7.34-7.37)
[2019-10-28 11:40] LABS: Comment VBG SENT IN GREEN TOP
[2019-10-28] MEDS ORDERED: Humalog100 UNIT/1 SC (12:07)
[2019-10-28 15:30] LABS: Anion Gap 15 mmol/L (6-16); Blood Urea Nitrogen 15 mg/dL (8-24); Bun/Creatinine Ratio 18.5 (12.0-20.0); CO2, Blood 14 mmol/L (21-32); Calcium, Blood 7.7 mg/dL (8.5-10.1); Chloride, Blood 109 mmol/L (98-108); Creatinine, Blood 0.81 mg/dL (0.40-1.00); Glomerular Filtration Rate >60 (60-); Glucose, Blood 202 mg/dL (70-99); Potassium, Blood 3.5 mmol/L (3.5-5.5); Sodium, Blood 138 mmol/L (136-145)
[2019-10-28 19:37] LABS: Anion Gap 8 mmol/L (6-16); Blood Urea Nitrogen 12 mg/dL (8-24); Bun/Creatinine Ratio 16.6 (12.0-20.0); CO2, Blood 21 mmol/L (21-32); Calcium, Blood 7.5 mg/dL (8.5-10.1); Chloride, Blood 113 mmol/L (98-108); Creatinine, Blood 0.72 mg/dL (0.40-1.00); Glomerular Filtration Rate >60 (60-); Glucose, Blood 106 mg/dL (70-99); Potassium, Blood 3.2 mmol/L (3.5-5.5); Sodium, Blood 142 mmol/L (136-145)
[2019-10-29 03:39] LABS: Anion Gap 7 mmol/L (6-16); Blood Urea Nitrogen 8 mg/dL (8-24); Bun/Creatinine Ratio 10.8 (12.0-20.0); CO2, Blood 20 mmol/L (21-32); Calcium, Blood 8.2 mg/dL (8.5-10.1); Chloride, Blood 115 mmol/L (98-108); Creatinine, Blood 0.74 mg/dL (0.40-1.00); Glomerular Filtration Rate >60 (60-); Glucose, Blood 181 mg/dL (70-99); Potassium, Blood 3.3 mmol/L (3.5-5.5); Sodium, Blood 142 mmol/L (136-145)
[2019-10-29 07:25] LABS: Anion Gap 9 mmol/L (6-16); Blood Urea Nitrogen 7 mg/dL (8-24); Bun/Creatinine Ratio 10.3 (12.0-20.0); CO2, Blood 19 mmol/L (21-32); Calcium, Blood 8.3 mg/dL (8.5-10.1); Chloride, Blood 114 mmol/L (98-108); Creatinine, Blood 0.68 mg/dL (0.40-1.00); Glomerular Filtration Rate >60 (60-); Glucose, Blood 96 mg/dL (70-99); Potassium, Blood 3.3 mmol/L (3.5-5.5); Sodium, Blood 142 mmol/L (136-145)
[2019-10-29 11:26] LABS: Alanine Aminotransfer (ALT/SGP 19 U/L (12-78); Albumin, Blood 3.4 g/dL (3.4-5.0); Albumin/Globulin Ratio 0.9 (0.8-1.8); Alk Phos 120 U/L (50-136); Anion Gap 10 mmol/L (6-16); Aspartate Aminotrans (AST/SGOT 18 U/L (12-37); Bilirubin, Total 0.5 mg/dL (0.1-1.0); Blood Urea Nitrogen 7 mg/dL (8-24); Bun/Creatinine Ratio 10.1 (12.0-20.0); CO2, Blood 18 mmol/L (21-32); Calcium, Blood 8.3 mg/dL (8.5-10.1); Chloride, Blood 108 mmol/L (98-108); Creatinine, Blood 0.69 mg/dL (0.40-1.00); Globulin, Blood 3.6 g/dL (2.2-4.0); Glomerular Filtration Rate >60 (60-); Glucose, Blood 450 mg/dL (70-99); Potassium, Blood 3.7 mmol/L (3.5-5.5); Sodium, Blood 136 mmol/L (136-145)
[2019-10-29 12:46] LABS: Glucose, Blood 637 mg/dL (70-99)
[2019-10-29 14:12] LABS: Glucose, Blood 533 mg/dL (70-99)
[2019-10-29 15:56] LABS: Alanine Aminotransfer (ALT/SGP 18 U/L (12-78); Albumin, Blood 3.4 g/dL (3.4-5.0); Albumin/Globulin Ratio 0.9 (0.8-1.8); Alk Phos 115 U/L (50-136); Anion Gap 7 mmol/L (6-16); Aspartate Aminotrans (AST/SGOT 18 U/L (12-37); Bilirubin, Total 0.4 mg/dL (0.1-1.0); Blood Urea Nitrogen 7 mg/dL (8-24); Bun/Creatinine Ratio 9.4 (12.0-20.0); CO2, Blood 21 mmol/L (21-32); Calcium, Blood 8.6 mg/dL (8.5-10.1); Chloride, Blood 111 mmol/L (98-108); Creatinine, Blood 0.74 mg/dL (0.40-1.00); Globulin, Blood 3.6 g/dL (2.2-4.0); Glomerular Filtration Rate >60 (60-); Glucose, Blood 274 mg/dL (70-99); Potassium, Blood 3.3 mmol/L (3.5-5.5); Sodium, Blood 139 mmol/L (136-145)
[2019-10-29 20:16] LABS: Alanine Aminotransfer (ALT/SGP 19 U/L (12-78); Albumin, Blood 3.2 g/dL (3.4-5.0); Albumin/Globulin Ratio 0.9 (0.8-1.8); Alk Phos 105 U/L (50-136); Anion Gap 9 mmol/L (6-16); Aspartate Aminotrans (AST/SGOT 17 U/L (12-37); Bilirubin, Total 0.5 mg/dL (0.1-1.0); Blood Urea Nitrogen 6 mg/dL (8-24); CO2, Blood 20 mmol/L (21-32); Calcium, Blood 8.1 mg/dL (8.5-10.1); Chloride, Blood 115 mmol/L (98-108); Creatinine, Blood 0.67 mg/dL (0.40-1.00); Globulin, Blood 3.4 g/dL (2.2-4.0); Glomerular Filtration Rate >60 (60-); Glucose, Blood 66 mg/dL (70-99); Potassium, Blood 3.1 mmol/L (3.5-5.5); Sodium, Blood 144 mmol/L (136-145); Total Protein, Blood 6.6 g/dL (6.4-8.2)
[2019-10-29 23:37] LABS: Alanine Aminotransfer (ALT/SGP 15 U/L (12-78); Albumin/Globulin Ratio 0.9 (0.8-1.8); Alk Phos 103 U/L (50-136); Anion Gap 8 mmol/L (6-16); Aspartate Aminotrans (AST/SGOT 17 U/L (12-37); Bilirubin, Total 0.5 mg/dL (0.1-1.0); Blood Urea Nitrogen 6 mg/dL (8-24); Bun/Creatinine Ratio 9.1 (12.0-20.0); CO2, Blood 22 mmol/L (21-32); Chloride, Blood 115 mmol/L (98-108); Creatinine, Blood 0.66 mg/dL (0.40-1.00); Globulin, Blood 3.4 g/dL (2.2-4.0); Glomerular Filtration Rate >60 (60-); Glucose, Blood 87 mg/dL (70-99); Sodium, Blood 145 mmol/L (136-145); Total Protein, Blood 6.4 g/dL (6.4-8.2)
[2019-10-30 03:25] LABS: Hematocrit 31.5 % (33.0-51.0); Hemoglobin 10.4 g/dL (11.5-16.0); Mean Corpuscular HGB 27.7 pg (26.0-34.0); Mean Platelet Volume 10.9 fL (9.1-12.4); Platelet Count 169 K/mm3 (150-400); RDW Coefficient Variation 13.6 % (11.7-14.2); RDW Standard Deviation 41.9 fL (35.1-46.3); Red Blood Cell Count 3.75 M/mm3 (3.80-5.20); White Blood Cell Count 5.58 K/mm3 (4.00-11.30)
[2019-10-30 03:26] LABS: Mean Corpuscular Volume 84 fL (80-100)
[2019-10-30 03:46] LABS: Alanine Aminotransfer (ALT/SGP 17 U/L (12-78); Albumin, Blood 2.9 g/dL (3.4-5.0); Albumin/Globulin Ratio 0.9 (0.8-1.8); Alk Phos 99 U/L (50-136); Anion Gap 7 mmol/L (6-16); Aspartate Aminotrans (AST/SGOT 14 U/L (12-37); Bilirubin, Total 0.5 mg/dL (0.1-1.0); Blood Urea Nitrogen 5 mg/dL (8-24); Bun/Creatinine Ratio 7.6 (12.0-20.0); CO2, Blood 21 mmol/L (21-32); Chloride, Blood 115 mmol/L (98-108); Creatinine, Blood 0.66 mg/dL (0.40-1.00); Globulin, Blood 3.2 g/dL (2.2-4.0); Glomerular Filtration Rate >60 (60-); Glucose, Blood 93 mg/dL (70-99); Potassium, Blood 3.5 mmol/L (3.5-5.5); Sodium, Blood 143 mmol/L (136-145); Total Protein, Blood 6.1 g/dL (6.4-8.2)
[2019-10-30 08:17] LABS: Anion Gap 5 mmol/L (6-16); Blood Urea Nitrogen 4 mg/dL (8-24); Bun/Creatinine Ratio 5.7 (12.0-20.0); CO2, Blood 23 mmol/L (21-32); Chloride, Blood 116 mmol/L (98-108); Creatinine, Blood 0.71 mg/dL (0.40-1.00); Glomerular Filtration Rate >60 (60-); Glucose, Blood 109 mg/dL (70-99); Potassium, Blood 3.5 mmol/L (3.5-5.5); Sodium, Blood 144 mmol/L (136-145)
[2019-10-30] MEDS ORDERED: METO10 PO (10:05)
== END 2019-10-30 10:11 | disposition home or self-care (01) | DRG 638 ==
PROVIDERS: Emergency Medicine; Family Medicine; Internal Medicine; Nurse Practitioner Acute Care; Student in an Organized Health Care Education/Training Program
PROC: 0DB78ZX Excision of Stomach, Pylorus, Via Natural or Artificial Opening Endoscopic, Diagnostic (ICD-10-PCS; 2019-10-29)
PROC: 0DB48ZX Excision of Esophagogastric Junction, Via Natural or Artificial Opening Endoscopic, Diagnostic (ICD-10-PCS; principal; 2019-10-29 16:30)
DX: E10.10 Type 1 diabetes mellitus with ketoacidosis without coma (principal); K86.1 Other chronic pancreatitis; E87.1 Hypo-osmolality and hyponatremia; E87.2 Acidosis; E10.43 Type 1 diabetes mellitus with diabetic autonomic (poly)neuropathy; K31.84 Gastroparesis; R13.10 Dysphagia, unspecified; M79.7 Fibromyalgia; F60.9 Personality disorder, unspecified; F31.9 Bipolar disorder, unspecified; K21.9 Gastro-esophageal reflux disease without esophagitis; F41.9 Anxiety disorder, unspecified; F17.210 Nicotine dependence, cigarettes, uncomplicated; Z79.4 Long term (current) use of insulin

== ENCOUNTER → 2019-12-30 | Outpatient (CLI) | payer OTHER ==
[2019-12-31 09:04] LABS: Candida species (DNA Probe) Positive (NEGATIVE); G. vaginalis (DNA Probe) Negative (NEGATIVE); T. vaginalis (DNA Probe) Negative (NEGATIVE)
== END | disposition home or self-care (01) ==
LOC: LAB SHORT 19:00 → LAB 19:00
PROVIDERS: Family Medicine
DX: B37.3 Candidiasis of vulva and vagina (principal)
CPT/HCPCS: 87480; 87510; 87660

== ENCOUNTER → 2020-01-10 | Outpatient (CLI) | payer OTHER ==
[2020-01-10 18:15] LABS: Albumin, Blood 4.1 g/dL (3.4-5.0); Anion Gap 19 mmol/L (6-16); Blood Urea Nitrogen 24 mg/dL (8-24); Bun/Creatinine Ratio 24.8 (12.0-20.0); CO2, Blood 14 mmol/L (21-32); Calcium, Blood 9.7 mg/dL (8.5-10.1); Chloride, Blood 98 mmol/L (98-108); Creatinine, Blood 0.97 mg/dL (0.40-1.00); Glomerular Filtration Rate >60 (60-); Glucose, Blood 435 mg/dL (70-99); Phosphorus, Blood 3.8 mg/dL (2.5-4.9); Potassium, Blood 4.1 mmol/L (3.5-5.5); Sodium, Blood 131 mmol/L (136-145)
== END | disposition home or self-care (01) ==
LOC: LAB SHORT 15:55 → LAB 15:55
PROVIDERS: Nurse Practitioner
DX: M43.6 Torticollis (principal)
CPT/HCPCS: 80069

== ENCOUNTER → 2020-01-13 | Outpatient (CLI) | payer OTHER | END | disposition home or self-care (01) | LOC: LAB SHORT 18:36 → LAB 18:36 | DX: L02.214 Cutaneous abscess of groin (principal) | CPT/HCPCS: 87070; 87075; 87077; 87186; 87205 ==

== ENCOUNTER 2020-03-04 09:42 | Emergency (ER) | payer OTHER ==
[~2020-03-04] VITALS: Ht 165.1 cm; Wt 61.2 kg
[2020-03-04 10:29] LABS: BASOPHILS ABSOLUTE AUTO 0.04 K/mm3 (0.00-0.23); BASOPHILS PERCENT AUTO 1 % (0-2); EOSINOPHILS PERCENT AUTO 0 % (0-6); Hematocrit 35.7 % (33.0-51.0); Hemoglobin 11.7 g/dL (11.5-16.0); IMMATURE GRAN ABSOLUTE AUTO 0.03 K/mm3 (0.00-0.10); IMMATURE GRAN PERCENT AUTO 0 % (0-1); LYMPHOCYTES ABSOLUTE AUTO 2.17 K/mm3 (0.84-5.20); LYMPHOCYTES PERCENT AUTO 26 % (21-46); MONOCYTES ABSOLUTE AUTO 0.52 K/mm3 (0.16-1.47); MONOCYTES PERCENT AUTO 6 % (4-13); Mean Corpuscular HGB 28.5 pg (26.0-34.0); Mean Corpuscular HGB Conc 32.8 g/dL (31.5-36.5); Mean Corpuscular Volume 87 fL (80-100); Mean Platelet Volume 11.5 fL (9.1-12.4); NEUTROPHILS ABSOLUTE AUTO 5.64 K/mm3 (1.96-9.15); NEUTROPHILS PERCENT AUTO 67 % (41-73); Platelet Count 161 K/mm3 (150-400); RDW Coefficient Variation 13.1 % (11.7-14.2); RDW Standard Deviation 41.1 fL (35.1-46.3); Red Blood Cell Count 4.11 M/mm3 (3.80-5.20)
[2020-03-04 10:54] LABS: Alanine Aminotransfer (ALT/SGP 26 U/L (12-78); Albumin, Blood 3.9 g/dL (3.4-5.0); Albumin/Globulin Ratio 1.2 (0.8-1.8); Alk Phos 160 U/L (50-136); Anion Gap 6 mmol/L (6-16); Aspartate Aminotrans (AST/SGOT 16 U/L (12-37); Beta-hydroxybutyrate 2.4 mg/dL (0.2-2.8); Bilirubin, Total 1.3 mg/dL (0.1-1.0); Blood Urea Nitrogen 18 mg/dL (8-24); Bun/Creatinine Ratio 21.6 (12.0-20.0); CO2, Blood 22 mmol/L (21-32); Calcium, Blood 9.1 mg/dL (8.5-10.1); Chloride, Blood 103 mmol/L (98-108); Creatinine, Blood 0.83 mg/dL (0.40-1.00); Globulin, Blood 3.3 g/dL (2.2-4.0); Glomerular Filtration Rate >60 (60-); Glucose, Blood 500 mg/dL (70-99); Potassium, Blood 3.3 mmol/L (3.5-5.5); Sodium, Blood 131 mmol/L (136-145); Total Protein, Blood 7.2 g/dL (6.4-8.2)
[2020-03-04 11:10] LABS: Source, Urine Voided
[2020-03-04 11:44] LABS: Bilirubin, Urine Neg (Neg); Blood, Urine Neg (Neg); Glucose Qualitative, Urine 4+ (Neg); Ketones, Urine Neg (Neg); Leukocyte Esterase, Urine Neg (Neg); Nitrite, Urine Neg (Neg); Protein, Urine Neg (Neg); Specific Gravity, Urine 1.005 (1.003-1.022); Urobilinogen, Urine NORM (Normal)
[2020-03-04 11:51] LABS: Appearance, Urine Clear (Clear); Color, Urine Yellow (P-Yellow)
[2020-03-04] MEDS ORDERED: METO10 PO (13:02)
== END 2020-03-04 13:23 | disposition home or self-care (01) ==
LOC: ER 09:42
PROVIDERS: Emergency Medicine
DX: E10.65 Type 1 diabetes mellitus with hyperglycemia (principal); R11.2 Nausea with vomiting, unspecified; R19.7 Diarrhea, unspecified; E10.43 Type 1 diabetes mellitus with diabetic autonomic (poly)neuropathy; K21.9 Gastro-esophageal reflux disease without esophagitis; F41.9 Anxiety disorder, unspecified; F31.9 Bipolar disorder, unspecified; K31.84 Gastroparesis; F17.210 Nicotine dependence, cigarettes, uncomplicated; Z79.899 Other long term (current) drug therapy; Z88.5 Allergy status to narcotic agent; Z88.8 Allergy status to other drugs, medicaments and biological substances
CPT/HCPCS: 36415; 80053; 81003; 82010; 82947; 84703; 85025; 93005; 93010; 96361; 96374; 99285-25; J1815; J2550; J7030

== ENCOUNTER → 2020-03-11 | Outpatient (CLI) | payer OTHER | END | disposition home or self-care (01) | LOC: LAB SHORT 18:36 → LAB 18:36 | DX: L08.9 Local infection of the skin and subcutaneous tissue, unspecified (principal); L73.2 Hidradenitis suppurativa | CPT/HCPCS: 87070; 87205 ==

== ENCOUNTER 2020-07-29 10:49 | Emergency (ER) | payer OTHER ==
[2020-10-09] MEDS ORDERED: METO10 PO (22:13)
== END 2020-07-29 12:28 | disposition left against medical advice (07) ==
LOC: ER 10:49
DX: Z53.21 Procedure and treatment not carried out due to patient leaving prior to being seen by health care provider (principal)

== ENCOUNTER 2020-08-08 10:56 | Emergency (ER) | payer OTHER ==
[~2020-08-08] VITALS: Ht 165.1 cm; Wt 61.2 kg
[2020-08-08 12:00] LABS: Beta HCG, Quantitative, Serum <1 mIU/mL (0-3)
[2020-08-08 12:11] LABS: U Amphetamine Screen Not Detected; U Barbituate Screen Not Detected; U Benzodiazapine Screen Not Detected; U Buprenorphine Screen Not Detected; U Cannabinoids Screen DETECTED; U Cocaine Screen Not Detected; U Methadone Screen Not Detected; U Methamphetamine Screen Not Detected; U Opiates Screen Not Detected; U Oxycodone Screen Not Detected; U Phencyclidine Screen Not Detected; U Propoxyphene Screen Not Detected
[2020-08-08 12:17] LABS: BASOPHILS ABSOLUTE AUTO 0.04 K/mm3 (0.00-0.23); BASOPHILS PERCENT AUTO 0 % (0-2); EOSINOPHILS ABSOLUTE AUTO 0.04 K/mm3 (0.00-0.68); EOSINOPHILS PERCENT AUTO 0 % (0-6); Hematocrit 40.3 % (33.0-51.0); Hemoglobin 13.8 g/dL (11.5-16.0); IMMATURE GRAN ABSOLUTE AUTO 0.09 K/mm3 (0.00-0.10); IMMATURE GRAN PERCENT AUTO 1 % (0-1); LYMPHOCYTES ABSOLUTE AUTO 1.78 K/mm3 (0.84-5.20); LYMPHOCYTES PERCENT AUTO 15 % (21-46); MONOCYTES ABSOLUTE AUTO 0.32 K/mm3 (0.16-1.47); MONOCYTES PERCENT AUTO 3 % (4-13); Mean Corpuscular HGB 29.9 pg (26.0-34.0); Mean Corpuscular HGB Conc 34.2 g/dL (31.5-36.5); Mean Corpuscular Volume 87 fL (80-100); NEUTROPHILS ABSOLUTE AUTO 9.74 K/mm3 (1.96-9.15); NEUTROPHILS PERCENT AUTO 81 % (41-73); RDW Coefficient Variation 12.3 % (11.7-14.2); RDW Standard Deviation 39.4 fL (35.1-46.3); Red Blood Cell Count 4.61 M/mm3 (3.80-5.20); White Blood Cell Count 12.01 K/mm3 (4.00-11.30)
[2020-08-08 12:18] LABS: Mean Platelet Volume 11.9 fL (9.1-12.4)
[2020-08-08 12:26] LABS: Alanine Aminotransfer (ALT/SGP 28 U/L (12-78); Albumin, Blood 4.1 g/dL (3.4-5.0); Alk Phos 143 U/L (50-136); Anion Gap 21 mmol/L (6-16); Aspartate Aminotrans (AST/SGOT 23 U/L (12-37); Blood Urea Nitrogen 23 mg/dL (8-24); Bun/Creatinine Ratio 26.5 (12.0-20.0); CO2, Blood 12 mmol/L (21-32); Calcium, Blood 9.3 mg/dL (8.5-10.1); Chloride, Blood 103 mmol/L (98-108); Creatinine, Blood 0.87 mg/dL (0.40-1.00); Globulin, Blood 4.1 g/dL (2.2-4.0); Glomerular Filtration Rate >60 (60-); Potassium, Blood 4.1 mmol/L (3.5-5.5); Sodium, Blood 136 mmol/L (136-145); Total Protein, Blood 8.2 g/dL (6.4-8.2)
[2020-08-08 12:27] LABS: Base Excess Venous -8.9 mmol/L; Bicarbonate Venous 18.3 mmol/L (24.0-30.0); PCO2 Venous 31 mmHg (38-42); PO2 Venous 193 mmHg (38-42); pH Blood Venous 7.34 (7.34-7.37)
[2020-08-08 12:30] LABS: Glucose, Blood 508 mg/dL (70-99)
[2020-08-08 14:05] LABS: Calcium, Ionized (POC) 1.17 mmol/L (1.10-1.46); Chloride (POC) 105 mmol/L (98-108); Creatinine (POC) 0.8 mg/dL (0.6-1.0); Glucose (ISTAT POC) 297 mg/dL (70-99); Hemoglobin (POC) 12.9 g/dL (12.0-16.0); Potassium (POC) 4.1 mmol/L (3.5-5.5); Sodium (POC) 140 mmol/L (135-148); Total CO2 (POC) 23 mmol/L (21-32)
[2020-08-08] MEDS ORDERED: PHENERGAN25 MG PR (14:15)
[2020-08-08] MEDS ORDERED: PROM25 PO (14:15)
[2020-08-09] MEDS ORDERED: OLAN10 PO (03:07)
[2020-08-09] MEDS ORDERED: ELINEST-28 TAB1 EACH PO (03:24)
[2020-10-09] MEDS ORDERED: METO10 PO (22:13)
== END 2020-08-08 14:49 | disposition home or self-care (01) ==
LOC: ER 10:56
PROVIDERS: Emergency Medicine
DX: R11.2 Nausea with vomiting, unspecified (principal); E86.0 Dehydration; E10.65 Type 1 diabetes mellitus with hyperglycemia; K21.9 Gastro-esophageal reflux disease without esophagitis; E10.43 Type 1 diabetes mellitus with diabetic autonomic (poly)neuropathy; K31.84 Gastroparesis; F17.210 Nicotine dependence, cigarettes, uncomplicated; Z88.5 Allergy status to narcotic agent; Z88.8 Allergy status to other drugs, medicaments and biological substances
CPT/HCPCS: 80047; 80053; 82803; 82947; 83690; 83735; 84702; 85014; 85025; 96361; 96374; 96375; 99284-25; J1200; J1790; J1815; J2550; J7120

== ENCOUNTER 2020-08-08 22:28 | Inpatient (IN) | payer OTHER ==
[~2020-08-08] VITALS: Ht 165.1 cm; Wt 60.4 kg
[2020-08-08 22:54] LABS: Base Excess Venous -15.8 mmol/L; Bicarbonate Venous 13.5 mmol/L (24.0-30.0); PCO2 Venous 23.4 mmHg (38-42); PO2 Venous 37.9 mmHg (38-42); pH Blood Venous 7.28 (7.34-7.37)
[2020-08-08 23:08] LABS: BASOPHILS ABSOLUTE AUTO 0.04 K/mm3 (0.00-0.23); BASOPHILS PERCENT AUTO 0 % (0-2); EOSINOPHILS ABSOLUTE AUTO 0.01 K/mm3 (0.00-0.68); EOSINOPHILS PERCENT AUTO 0 % (0-6); Hematocrit 37.9 % (33.0-51.0); Hemoglobin 12.8 g/dL (11.5-16.0); IMMATURE GRAN ABSOLUTE AUTO 0.05 K/mm3 (0.00-0.10); IMMATURE GRAN PERCENT AUTO 0 % (0-1); LYMPHOCYTES ABSOLUTE AUTO 1.71 K/mm3 (0.84-5.20); LYMPHOCYTES PERCENT AUTO 12 % (21-46); MONOCYTES ABSOLUTE AUTO 0.51 K/mm3 (0.16-1.47); MONOCYTES PERCENT AUTO 3 % (4-13); Mean Corpuscular HGB 29.5 pg (26.0-34.0); Mean Corpuscular HGB Conc 33.8 g/dL (31.5-36.5); Mean Corpuscular Volume 87 fL (80-100); Mean Platelet Volume 11.5 fL (9.1-12.4); NEUTROPHILS ABSOLUTE AUTO 12.55 K/mm3 (1.96-9.15); NEUTROPHILS PERCENT AUTO 84 % (41-73); Platelet Count 221 K/mm3 (150-400); RDW Coefficient Variation 12.4 % (11.7-14.2); RDW Standard Deviation 39.7 fL (35.1-46.3); Red Blood Cell Count 4.34 M/mm3 (3.80-5.20); White Blood Cell Count 14.87 K/mm3 (4.00-11.30)
[2020-08-08 23:13] LABS: Source, Urine Clean Catch
[2020-08-08 23:16] LABS: Bilirubin, Urine Neg (Neg); Blood, Urine 3+ (Neg); Glucose Qualitative, Urine 4+ (Neg); Ketones, Urine 4+ (Neg); Leukocyte Esterase, Urine 2+ (Neg); Nitrite, Urine Neg (Neg); Protein, Urine 1+ (Neg); Specific Gravity, Urine 1.015 (1.003-1.022); Urobilinogen, Urine NORM (Normal)
[2020-08-08 23:21] LABS: Appearance, Urine Hazy (Clear); Color, Urine Yellow (P-Yellow)
[2020-08-08 23:22] LABS: Bacteria Mod /hpf; Red Blood Cells, Urine 0-2 /hpf (0-2); Squamous Epithelial Cells Many /hpf (Few)
[2020-08-08 23:26] LABS: Alanine Aminotransfer (ALT/SGP 24 U/L (12-78); Albumin, Blood 3.8 g/dL (3.4-5.0); Alk Phos 123 U/L (50-136); Anion Gap 23 mmol/L (6-16); Aspartate Aminotrans (AST/SGOT 6 U/L (12-37); Bilirubin, Total 1.7 mg/dL (0.1-1.0); Blood Urea Nitrogen 19 mg/dL (8-24); Bun/Creatinine Ratio 22.9 (12.0-20.0); CO2, Blood 12 mmol/L (21-32); Chloride, Blood 103 mmol/L (98-108); Creatinine, Blood 0.83 mg/dL (0.40-1.00); Ethanol (Alcohol), Blood, Med <3 mg/dL; Glomerular Filtration Rate >60 (60-); Glucose, Blood 448 mg/dL (70-99); Magnesium, Blood 1.9 mg/dL (1.6-2.4); Potassium, Blood 3.7 mmol/L (3.5-5.5); Sodium, Blood 138 mmol/L (136-145); Total Protein, Blood 7.8 g/dL (6.4-8.2)
[2020-08-08 23:39] LABS: Beta-hydroxybutyrate 91.6 mg/dL (0.2-2.8)
[2020-08-08 23:51] LABS: U Amphetamine Screen Not Detected; U Barbituate Screen Not Detected; U Benzodiazapine Screen Not Detected; U Buprenorphine Screen Not Detected; U Cannabinoids Screen Not Detected; U Cocaine Screen Not Detected; U Methadone Screen Not Detected; U Methamphetamine Screen Not Detected; U Opiates Screen Not Detected; U Oxycodone Screen Not Detected; U Phencyclidine Screen Not Detected; U Propoxyphene Screen Not Detected
[2020-08-09] MEDS ORDERED: OLAN10 PO (03:07)
[2020-08-09] MEDS ORDERED: ELINEST-28 TAB1 EACH PO (03:24)
[2020-08-09 05:26] LABS: Anion Gap 14 mmol/L (6-16); Blood Urea Nitrogen 13 mg/dL (8-24); Bun/Creatinine Ratio 18.1 (12.0-20.0); CO2, Blood 14 mmol/L (21-32); Calcium, Blood 7.6 mg/dL (8.5-10.1); Chloride, Blood 109 mmol/L (98-108); Creatinine, Blood 0.72 mg/dL (0.40-1.00); Glomerular Filtration Rate >60 (60-); Glucose, Blood 278 mg/dL (70-99); Sodium, Blood 137 mmol/L (136-145)
[2020-08-09 12:37] LABS: Anion Gap 5 mmol/L (6-16); Blood Urea Nitrogen 9 mg/dL (8-24); Bun/Creatinine Ratio 14.4 (12.0-20.0); CO2, Blood 22 mmol/L (21-32); Chloride, Blood 110 mmol/L (98-108); Creatinine, Blood 0.63 mg/dL (0.40-1.00); Glomerular Filtration Rate >60 (60-); Glucose, Blood 205 mg/dL (70-99); Potassium, Blood 3.7 mmol/L (3.5-5.5); Sodium, Blood 137 mmol/L (136-145)
[2020-08-10 03:33] LABS: BASOPHILS ABSOLUTE AUTO 0.02 K/mm3 (0.00-0.23); BASOPHILS PERCENT AUTO 0 % (0-2); EOSINOPHILS ABSOLUTE AUTO 0.01 K/mm3 (0.00-0.68); EOSINOPHILS PERCENT AUTO 0 % (0-6); Hematocrit 35.3 % (33.0-51.0); Hemoglobin 12.2 g/dL (11.5-16.0); IMMATURE GRAN ABSOLUTE AUTO 0.03 K/mm3 (0.00-0.10); IMMATURE GRAN PERCENT AUTO 0 % (0-1); LYMPHOCYTES ABSOLUTE AUTO 3.28 K/mm3 (0.84-5.20); LYMPHOCYTES PERCENT AUTO 35 % (21-46); MONOCYTES ABSOLUTE AUTO 0.72 K/mm3 (0.16-1.47); MONOCYTES PERCENT AUTO 8 % (4-13); Mean Corpuscular HGB 29.8 pg (26.0-34.0); Mean Corpuscular HGB Conc 34.6 g/dL (31.5-36.5); Mean Corpuscular Volume 86 fL (80-100); Mean Platelet Volume 10.8 fL (9.1-12.4); NEUTROPHILS ABSOLUTE AUTO 5.23 K/mm3 (1.96-9.15); NEUTROPHILS PERCENT AUTO 56 % (41-73); Platelet Count 174 K/mm3 (150-400); RDW Coefficient Variation 12.8 % (11.7-14.2); RDW Standard Deviation 39.9 fL (35.1-46.3); White Blood Cell Count 9.29 K/mm3 (4.00-11.30)
[2020-08-10 03:59] LABS: Alanine Aminotransfer (ALT/SGP 19 U/L (12-78); Albumin/Globulin Ratio 0.9 (0.8-1.8); Alk Phos 91 U/L (50-136); Anion Gap 8 mmol/L (6-16); Aspartate Aminotrans (AST/SGOT 11 U/L (12-37); Bilirubin, Total 1.1 mg/dL (0.1-1.0); Blood Urea Nitrogen 5 mg/dL (8-24); Bun/Creatinine Ratio 7.8 (12.0-20.0); CO2, Blood 23 mmol/L (21-32); Calcium, Blood 8.2 mg/dL (8.5-10.1); Chloride, Blood 111 mmol/L (98-108); Creatinine, Blood 0.64 mg/dL (0.40-1.00); Globulin, Blood 3.5 g/dL (2.2-4.0); Glomerular Filtration Rate >60 (60-); Glucose, Blood 106 mg/dL (70-99); Magnesium, Blood 1.6 mg/dL (1.6-2.4); Phosphorus, Blood 1.4 mg/dL (2.5-4.9); Potassium, Blood 3.3 mmol/L (3.5-5.5); Sodium, Blood 142 mmol/L (136-145); Total Protein, Blood 6.5 g/dL (6.4-8.2)
[2020-10-09] MEDS ORDERED: METO10 PO (22:13)
== END 2020-08-10 10:22 | disposition home or self-care (01) | DRG 639 ==
LOC: ER 22:28 → PCU 23:50 → ICUE 23:50
PROVIDERS: Emergency Medicine; Family Medicine; ADMIT Hospitalist
DX: E11.10 Type 2 diabetes mellitus with ketoacidosis without coma (principal); E86.0 Dehydration; F31.9 Bipolar disorder, unspecified; E11.43 Type 2 diabetes mellitus with diabetic autonomic (poly)neuropathy; K31.84 Gastroparesis; K21.9 Gastro-esophageal reflux disease without esophagitis; F17.210 Nicotine dependence, cigarettes, uncomplicated; Z86.16 Personal history of COVID-19; Z79.4 Long term (current) use of insulin
CPT/HCPCS: 36415; 71045; 80047; 80048; 80053; 81001; 82010; 82803; 82947; 83605; 83690; 83735; 84100; 84443; 84702; 85014; 85025; 87040; 87086; 93005; 93010; 96361; 96374; 96375; 99284-25; 99291-25; A9270; G0480; J1200; J1630; J1790; J1815; J1956; J2550; J2765; J3475; J7030; J7040; J7120

== ENCOUNTER 2021-02-13 17:34 | Emergency (ER) | payer OTHER ==
[~2021-02-13] VITALS: Ht 165.1 cm; Wt 61.2 kg
[~2021-02-13 17:34] MED LIST changes: +ELINEST-28 TAB1 EACH PO; +OLAN10 PO
[2021-02-13 18:36] LABS: BASOPHILS ABSOLUTE AUTO 0.04 K/mm3 (0.00-0.23); BASOPHILS PERCENT AUTO 1 % (0-2); EOSINOPHILS PERCENT AUTO 0 % (0-6); Hematocrit 39.5 % (33.0-51.0); Hemoglobin 14.1 g/dL (11.5-16.0); IMMATURE GRAN ABSOLUTE AUTO 0.05 K/mm3 (0.00-0.10); IMMATURE GRAN PERCENT AUTO 1 % (0-1); LYMPHOCYTES ABSOLUTE AUTO 2.83 K/mm3 (0.84-5.20); LYMPHOCYTES PERCENT AUTO 34 % (21-46); MONOCYTES ABSOLUTE AUTO 0.37 K/mm3 (0.16-1.47); MONOCYTES PERCENT AUTO 5 % (4-13); Mean Corpuscular HGB 30.8 pg (26.0-34.0); Mean Corpuscular HGB Conc 35.7 g/dL (31.5-36.5); Mean Corpuscular Volume 86 fL (80-100); Mean Platelet Volume 10.9 fL (9.1-12.4); NEUTROPHILS ABSOLUTE AUTO 4.95 K/mm3 (1.96-9.15); NEUTROPHILS PERCENT AUTO 60 % (41-73); Platelet Count 198 K/mm3 (150-400); RDW Coefficient Variation 12.2 % (11.7-14.2); RDW Standard Deviation 38.4 fL (35.1-46.3); Red Blood Cell Count 4.58 M/mm3 (3.80-5.20); White Blood Cell Count 8.24 K/mm3 (4.00-11.30)
[2021-02-13 18:58] LABS: Alanine Aminotransfer (ALT/SGP 38 U/L (12-78); Albumin, Blood 4.5 g/dL (3.4-5.0); Albumin/Globulin Ratio 1.1 (0.8-1.8); Alk Phos 102 U/L (50-136); Anion Gap 20 mmol/L (6-16); Aspartate Aminotrans (AST/SGOT 17 U/L (12-37); Bilirubin, Total 1.4 mg/dL (0.1-1.0); Blood Urea Nitrogen 17 mg/dL (8-24); CO2, Blood 15 mmol/L (21-32); Calcium, Blood 9.2 mg/dL (8.5-10.1); Chloride, Blood 94 mmol/L (98-108); Ethanol (Alcohol), Blood, Med <3 mg/dL; Globulin, Blood 4.1 g/dL (2.2-4.0); Glomerular Filtration Rate >60 (60-); Glucose, Blood 366 mg/dL (70-99); Potassium, Blood 3.8 mmol/L (3.5-5.5); Sodium, Blood 129 mmol/L (136-145); Total Protein, Blood 8.6 g/dL (6.4-8.2)
[2021-02-13 19:16] LABS: Troponin I <0.015 ng/mL (0.000-0.040)
[2021-02-13] MEDS ORDERED: BASAGLAR K100 UNIT/1 SC (19:29)
[2021-02-13] MEDS ORDERED: HUMALOG100 UNIT/1 SC (19:31)
[2021-02-13] MEDS ORDERED: PROM25 PO (21:06)
[2021-02-13 21:26] LABS: Beta-hydroxybutyrate 84.4 mg/dL (0.2-2.8)
== END 2021-02-13 21:15 | disposition home or self-care (01) ==
LOC: ER 17:34
PROVIDERS: Emergency Medicine Emergency Medical Services
DX: R10.13 Epigastric pain (principal); E10.65 Type 1 diabetes mellitus with hyperglycemia; E10.43 Type 1 diabetes mellitus with diabetic autonomic (poly)neuropathy; K31.84 Gastroparesis; K21.9 Gastro-esophageal reflux disease without esophagitis; F17.210 Nicotine dependence, cigarettes, uncomplicated; Z79.899 Other long term (current) drug therapy
CPT/HCPCS: 36415; 74176; 80053; 82010; 82947; 83690; 84484; 85025; 93005; 93010; 96374; 96375; 99284-25; G0480; J1885; J2550; J7030

== ENCOUNTER 2021-02-22 09:55 | Inpatient (IN) | payer OTHER ==
[~2021-02-22] VITALS: Ht 165.1 cm; Wt 60.0 kg
[~2021-02-22 09:55] MED LIST changes: +BASAGLAR K100 UNIT/1 SC; +HUMALOG100 UNIT/1 SC
[2021-02-22 10:59] LABS: BASOPHILS ABSOLUTE AUTO 0.04 K/mm3 (0.00-0.23); BASOPHILS PERCENT AUTO 1 % (0-2); EOSINOPHILS ABSOLUTE AUTO 0.01 K/mm3 (0.00-0.68); EOSINOPHILS PERCENT AUTO 0 % (0-6); Hematocrit 37.7 % (33.0-51.0); Hemoglobin 12.3 g/dL (11.5-16.0); IMMATURE GRAN ABSOLUTE AUTO 0.08 K/mm3 (0.00-0.10); IMMATURE GRAN PERCENT AUTO 1 % (0-1); LYMPHOCYTES ABSOLUTE AUTO 1.55 K/mm3 (0.84-5.20); LYMPHOCYTES PERCENT AUTO 20 % (21-46); MONOCYTES ABSOLUTE AUTO 0.51 K/mm3 (0.16-1.47); MONOCYTES PERCENT AUTO 7 % (4-13); Mean Corpuscular HGB 30.8 pg (26.0-34.0); Mean Corpuscular HGB Conc 32.6 g/dL (31.5-36.5); Mean Corpuscular Volume 94 fL (80-100); Mean Platelet Volume 11.6 fL (9.1-12.4); NEUTROPHILS ABSOLUTE AUTO 5.64 K/mm3 (1.96-9.15); NEUTROPHILS PERCENT AUTO 72 % (41-73); Platelet Count 144 K/mm3 (150-400); RDW Standard Deviation 44.9 fL (35.1-46.3); White Blood Cell Count 7.83 K/mm3 (4.00-11.30)
[2021-02-22 11:08] LABS: Bicarbonate Venous 10.7 mmol/L (24.0-30.0); PCO2 Venous 22.6 mmHg (38-42); PO2 Venous 178 mmHg (38-42); pH Blood Venous 7.15 (7.34-7.37)
[2021-02-22 11:31] LABS: Magnesium, Blood 1.8 mg/dL (1.6-2.4)
[2021-02-22 12:00] LABS: Anion Gap 23 mmol/L (6-16); Blood Urea Nitrogen 13 mg/dL (8-24); Bun/Creatinine Ratio 14.2 (12.0-20.0); CO2, Blood 8 mmol/L (21-32); Calcium, Blood 8.5 mg/dL (8.5-10.1); Chloride, Blood 108 mmol/L (98-108); Creatinine, Blood 0.91 mg/dL (0.40-1.00); Glomerular Filtration Rate >60 (60-); Glucose, Blood 435 mg/dL (70-99); Sodium, Blood 139 mmol/L (136-145)
[2021-02-22 12:10] LABS: Source, Urine Clean Catch
[2021-02-22 12:18] LABS: Appearance, Urine Clear (Clear); Bilirubin, Urine Neg (Neg); Blood, Urine 4+ (Neg); Color, Urine Yellow (P-Yellow); Glucose Qualitative, Urine 4+ (Neg); Ketones, Urine 4+ (Neg); Leukocyte Esterase, Urine Neg (Neg); Nitrite, Urine Neg (Neg); Protein, Urine 1+ (Neg); Specific Gravity, Urine 1.015 (1.003-1.022); Urobilinogen, Urine NORM (Normal)
[2021-02-22 12:32] LABS: Bacteria Few /hpf; Squamous Epithelial Cells Few /hpf (Few)
[2021-02-22] MEDS ORDERED: ZYPREXA2.5 MG PO (12:34)
[2021-02-22] MEDS ORDERED: OMEP20ER PO (12:35)
[2021-02-22] MEDS ORDERED: BACL20 PO (12:35)
[2021-02-22] MEDS ORDERED: DULOXETINE HCL60 M1 PO (12:36)
[2021-02-22 16:10] LABS: SARS-Cov-2 (COVID-19) PCR, MMC NEGATIVE (NEGATIVE)
--- NOTE | 2021-02-22 16:21 | NUR ---
PT ARRIVED TO UNIT FROM ED. AMBULATED TO RESTROOM AND BED INDEPENDENTLY. UPON ARRIVAL, CBG SHOWED BLOOD GLUCOSE OF 176. CALL PLACED TO DR AND ORDERS OBTAINED. INSULIN DRIP STOPPED AND PT GIVEN HALF AMP D50 AND STARTED ON FLUIDS PER ORDERS. PT A&OX4. TELE SHOWS SINUS TACH AT 113. PROVIDED ORAL SWABS PER PT REQUEST. ORIENTED TO ROOM AND CALL LIGHT. CALL LIGHT IN REACH.
[2021-02-22 16:47] LABS: Anion Gap 14 mmol/L (6-16); Blood Urea Nitrogen 13 mg/dL (8-24); Bun/Creatinine Ratio 15.3 (12.0-20.0); CO2, Blood 9 mmol/L (21-32); Calcium, Blood 7.5 mg/dL (8.5-10.1); Chloride, Blood 123 mmol/L (98-108); Creatinine, Blood 0.85 mg/dL (0.40-1.00); Glomerular Filtration Rate >60 (60-); Glucose, Blood 188 mg/dL (70-99); Potassium, Blood 3.8 mmol/L (3.5-5.5); Sodium, Blood 146 mmol/L (136-145)
[2021-02-22 17:00] LABS: U Amphetamine Screen Not Detected; U Barbituate Screen Not Detected; U Benzodiazapine Screen Not Detected; U Buprenorphine Screen Not Detected; U Cannabinoids Screen DETECTED; U Cocaine Screen Not Detected; U Methadone Screen Not Detected; U Methamphetamine Screen Not Detected; U Opiates Screen Not Detected; U Oxycodone Screen Not Detected; U Phencyclidine Screen Not Detected; U Propoxyphene Screen Not Detected
--- NOTE | 2021-02-22 17:17 | NUR ---
CBG 251 RESTARTED INSULIN DRIP AT 4 UNITS PER HOUR. D5 1/2NS INFUSING PER ORDERS. Fredrick ABERNATHY NOTIFIED AND ORDERS OBTAINED FOR 20 OF K. PT NAUSEATED, MEDICATED PER ORDERS W/5M IV REGLAN. PT REQUESTING TYLENOL FOR MOUTH; 3 TOP TEETH PULLED YESTERDAY. VSS. CALL LIGHT IN REACH.
--- NOTE | 2021-02-22 18:13 | NUR ---
SUMMARY MOST RECENT CBG 316. TITRATED INSULIN DRIP TO 6 UNITS PER HOUR. D5 1/2NS AND K RIDER INFUSING PER ORDERS. MEDICATED PT PER ORDERS FOR NAUSEA AND DENTAL PAIN (HAD TOP THREE TEETH EXTRACTED YESTERDAY). CO2 STILL CRITICALLY LOW. ANION GAP HAS NOT CLOSED OF LAST LABS. PT ALERT AND ORIENTED. PLEASANT AND COOPERATIVE. CALL LIGHT IN REACH.
--- NOTE | 2021-02-22 19:20 | NUR ---
PT RESTING QUIETLY IN LOW SEMI FOWLERS POSITION IN BED. PT DENIES ANY COMPLAINTS OF PAIN, HEADACHE, CHEST PAIN, SOB, OR NUMBNESS AND TINGLING. PT REPORTS MILD NAUSEA - REVIEWED PRN SCHEDULE WITH PT FOR REGLAN. PT HAS INSULIN DRIP INFUSING TO RIGHT UPPER ARM NEW POWER GLIDE, AND D51/2 NS AT 200HOUR TO LEFT AC IV SITE - BOTH INFUSING WITHOUT COMPLICATIONS. PT IS NPO, TOOTHETTES AT BEDSIDE. CALL LIGHT WITHIN REACH. BED IN LOW POSITION. PT DENIES ANY REQUESTS AT THIS TIME.
[2021-02-22 22:31] LABS: Anion Gap 14 mmol/L (6-16); Blood Urea Nitrogen 10 mg/dL (8-24); Bun/Creatinine Ratio 12.7 (12.0-20.0); CO2, Blood 9 mmol/L (21-32); Calcium, Blood 7.2 mg/dL (8.5-10.1); Chloride, Blood 118 mmol/L (98-108); Creatinine, Blood 0.79 mg/dL (0.40-1.00); Glomerular Filtration Rate >60 (60-); Glucose, Blood 340 mg/dL (70-99); Potassium, Blood 4.2 mmol/L (3.5-5.5); Sodium, Blood 141 mmol/L (136-145)
[2021-02-23 01:07] LABS: Anion Gap 6 mmol/L (6-16); Blood Urea Nitrogen 7 mg/dL (8-24); Bun/Creatinine Ratio 9.4 (12.0-20.0); CO2, Blood 17 mmol/L (21-32); Calcium, Blood 7.6 mg/dL (8.5-10.1); Chloride, Blood 120 mmol/L (98-108); Creatinine, Blood 0.74 mg/dL (0.40-1.00); Glomerular Filtration Rate >60 (60-); Glucose, Blood 213 mg/dL (70-99); Potassium, Blood 3.5 mmol/L (3.5-5.5); Sodium, Blood 143 mmol/L (136-145)
--- NOTE | 2021-02-23 02:15 | NUR ---
UPDATED DR. STUBBS ON ANION GAP CLOSING, CURRENT CBG, AND INSULIN DRIP AT 3ML/HOUR - NO BMP ORDERED - TO PLACE BMP ORDER, OTHERWISE NO NEW ORDERS AT THIS TIME.
[2021-02-23 04:21] LABS: BASOPHILS ABSOLUTE AUTO 0.03 K/mm3 (0.00-0.23); BASOPHILS PERCENT AUTO 0 % (0-2); EOSINOPHILS ABSOLUTE AUTO 0.01 K/mm3 (0.00-0.68); EOSINOPHILS PERCENT AUTO 0 % (0-6); Hematocrit 31.5 % (33.0-51.0); Hemoglobin 10.7 g/dL (11.5-16.0); IMMATURE GRAN ABSOLUTE AUTO 0.07 K/mm3 (0.00-0.10); IMMATURE GRAN PERCENT AUTO 1 % (0-1); LYMPHOCYTES ABSOLUTE AUTO 2.73 K/mm3 (0.84-5.20); LYMPHOCYTES PERCENT AUTO 27 % (21-46); MONOCYTES ABSOLUTE AUTO 0.79 K/mm3 (0.16-1.47); MONOCYTES PERCENT AUTO 8 % (4-13); Mean Corpuscular HGB 30.7 pg (26.0-34.0); Mean Corpuscular Volume 90 fL (80-100); NEUTROPHILS ABSOLUTE AUTO 6.69 K/mm3 (1.96-9.15); NEUTROPHILS PERCENT AUTO 65 % (41-73); Platelet Count 156 K/mm3 (150-400); RDW Coefficient Variation 13.1 % (11.7-14.2); RDW Standard Deviation 42.7 fL (35.1-46.3); Red Blood Cell Count 3.49 M/mm3 (3.80-5.20); White Blood Cell Count 10.32 K/mm3 (4.00-11.30)
[2021-02-23 04:40] LABS: Anion Gap 6 mmol/L (6-16); Blood Urea Nitrogen 6 mg/dL (8-24); Bun/Creatinine Ratio 8.9 (12.0-20.0); CO2, Blood 18 mmol/L (21-32); Calcium, Blood 7.4 mg/dL (8.5-10.1); Chloride, Blood 119 mmol/L (98-108); Creatinine, Blood 0.67 mg/dL (0.40-1.00); Glomerular Filtration Rate >60 (60-); Glucose, Blood 161 mg/dL (70-99); Potassium, Blood 3.2 mmol/L (3.5-5.5); Sodium, Blood 143 mmol/L (136-145)
--- NOTE | 2021-02-23 05:55 | NUR ---
SHIFT SUMMARY - NO ACUTE CHANGES THROUGHOUT THE NIGHT. PT'S CBG'S HAVE STABILIZED - MAINTAINING IN MID 100'S - SEE CBG RESULTS. PT CONTINUES ON D5 1/2 NS AT 200 CC HOUR - INFUSING WITHOUT DIFFICULTY. PT CURRENTLY ON INSULIN DRIP AT 3ML/HOUR. REVIEWED CBG/LAB RESULTS THROUGHOUT THE NIGHT WITH LIAN BEASLEY. PT SLEPT FOR INTERMITTENT PERIODS OF TIME TONIGHT. PT MEDICATED X1 FOR NAUSEA. PT CONTINUES NPO - TOOTHETTES AT BEDSIDE. CALL LIGHT WITHIN REACH. BED IN LOW POSITION. PT SBA TO BSC - STABLE AMBULATION.
--- NOTE | 2021-02-23 17:39 | NUR ---
SUMMARY PT RESTING IN BED. A/O X4. WAS NAUSEATED MOST OF THE DAY BUT TONIGHT IS FEELING BETTER AND WANTING REAL FOOD. INSULIN GTT WAS TURNED OFF AT 1100. GLUCOSE IS STABLE. REMAINS ON IVF WITH KCL. CHANGED TO MEDICAL STATUS. NO OTHER CHANGES THIS SHIFT.
[2021-02-24 04:47] LABS: Albumin, Blood 2.7 g/dL (3.4-5.0); Anion Gap 3 mmol/L (6-16); Blood Urea Nitrogen 3 mg/dL (8-24); Bun/Creatinine Ratio 4.5 (12.0-20.0); CO2, Blood 23 mmol/L (21-32); Calcium, Blood 8.2 mg/dL (8.5-10.1); Chloride, Blood 120 mmol/L (98-108); Creatinine, Blood 0.67 mg/dL (0.40-1.00); Glomerular Filtration Rate >60 (60-); Glucose, Blood 51 mg/dL (70-99); Phosphorus, Blood 1.3 mg/dL (2.5-4.9); Potassium, Blood 3.8 mmol/L (3.5-5.5); Sodium, Blood 146 mmol/L (136-145)
--- NOTE | 2021-02-24 06:08 | NUR ---
SHIFT SUMMARY NO ACUTE EVENTS THIS SHIFT. PT CBG DROPPED TO 51 AT 0418 FROM THE 100'S. OJ GIVEN, PT ENCOURAGED TO EAT. PT ON ADA DIET, AC/HS FOR BLOOD SUGARS. PT INDEPENDENT TO BESIDE COMMODE. NS KCL INFUSING AT 100 MLS/HR. RIGHT ARM HAS POWERGLIDE, DRAWS BLOOD. PT ALERT AND ORIENTEDX4, PLEASANT AND COOPERATIVE TO CARE. SLEPT THROUGH MOST OF NIGHT. WILL CONTINUE TO MONITOR UNTIL REPORT GIVEN
--- NOTE | 2021-02-24 09:00 | NUR ---
CARE ASSUMPTION PATIENT A/OX4. VSS. TELE SINUS 83. SPO2 >95% ON RA. PATIENT HAD A LOW PHOSPHORUS LEVEL AND MD ORDERED PHOSPHATE POTASSIUM THAT IS INFUSING. MD [id number] INTO SEE PATIENT AND STATED PATIENT SHOULD BE ABLE TO DISCHARGE HOME TODAYA AFTER THE INFUSION OF PHOSPHATE POTASSIUM AND IF THE LEVELS ARE WITHIN NORMAL LIMITS. PATIENT IS INDEPENDENT IN THE ROOM AND TO THE BEDSIDE COMODE. BED IN LOWEST POSITION AND CALL LIGHT WITHIN REACH. WILL CONTINUE TO MONITOR AND PROVIDE CARE.
[2021-02-24] MEDS ORDERED: DULO60 PO (11:47)
[2021-02-24 15:58] LABS: Albumin, Blood 2.8 g/dL (3.4-5.0); Anion Gap 7 mmol/L (6-16); Blood Urea Nitrogen 3 mg/dL (8-24); CO2, Blood 23 mmol/L (21-32); Calcium, Blood 8.3 mg/dL (8.5-10.1); Chloride, Blood 111 mmol/L (98-108); Creatinine, Blood 0.74 mg/dL (0.40-1.00); Glomerular Filtration Rate >60 (60-); Glucose, Blood 266 mg/dL (70-99); Sodium, Blood 141 mmol/L (136-145)
[2021-02-24 15:59] LABS: Phosphorus, Blood 4.4 mg/dL (2.5-4.9)
--- NOTE | 2021-02-24 16:26 | NUR ---
PATIENT DISCHARGE THIS RN PROVIDED PATIEN WITH DISCHARGE EDUCATION AND INFORMATION AND INFORMED PATIENT TO FOLLOW UP WITH PCP. PATIENT WALKED OUT TO HER RIDE WITH [employer]. PATIENT LEFT WITH DISCHARGE INFORMATION AND ALL PERSONAL BELONGINGS.
== END 2021-02-24 16:10 | disposition home or self-care (01) | DRG 638 ==
LOC: ER 09:55 → PCU 12:37
PROVIDERS: Internal Medicine; Nurse Practitioner Acute Care; Student in an Organized Health Care Education/Training Program; ADMIT Hospitalist
DX: E10.10 Type 1 diabetes mellitus with ketoacidosis without coma (principal); R65.10 Systemic inflammatory response syndrome (SIRS) of non-infectious origin without acute organ dysfunction; E87.1 Hypo-osmolality and hyponatremia; K86.1 Other chronic pancreatitis; F60.9 Personality disorder, unspecified; Z20.822 Contact with and (suspected) exposure to COVID-19; F31.9 Bipolar disorder, unspecified; K21.9 Gastro-esophageal reflux disease without esophagitis; F17.210 Nicotine dependence, cigarettes, uncomplicated; F41.9 Anxiety disorder, unspecified; M79.7 Fibromyalgia; K86.89 Other specified diseases of pancreas; E86.0 Dehydration; F11.10 Opioid abuse, uncomplicated; E83.39 Other disorders of phosphorus metabolism; E10.43 Type 1 diabetes mellitus with diabetic autonomic (poly)neuropathy; K31.84 Gastroparesis; Z88.6 Allergy status to analgesic agent; Z88.5 Allergy status to narcotic agent; Z88.2 Allergy status to sulfonamides; Z88.8 Allergy status to other drugs, medicaments and biological substances; Z98.890 Other specified postprocedural states; Z79.899 Other long term (current) drug therapy; Z79.4 Long term (current) use of insulin
CPT/HCPCS: 36415; 80048; 80069; 81001; 81025; 82010; 82803; 82947; 83690; 83735; 85025; 93005; 93010; 96361; 96374; 96375; 99285-25; A9270; C1751; J1200; J1790; J1815; J2765; J3480; J7030; J7042; J7060; U0004

== ENCOUNTER 2021-04-11 08:59 | Emergency (ER) | payer OTHER ==
[~2021-04-11] VITALS: Ht 165.1 cm; Wt 24.3 kg
[~2021-04-11 08:59] MED LIST changes: +DULOXETINE HCL60 M1 PO; +OMEP20ER PO; +ZYPREXA2.5 MG PO
[2021-04-11 09:36] LABS: BASOPHILS ABSOLUTE AUTO 0.06 K/mm3 (0.00-0.23); BASOPHILS PERCENT AUTO 1 % (0-2); EOSINOPHILS ABSOLUTE AUTO 0.01 K/mm3 (0.00-0.68); EOSINOPHILS PERCENT AUTO 0 % (0-6); Hematocrit 36.8 % (33.0-51.0); Hemoglobin 12.6 g/dL (11.5-16.0); IMMATURE GRAN ABSOLUTE AUTO 0.04 K/mm3 (0.00-0.10); IMMATURE GRAN PERCENT AUTO 1 % (0-1); LYMPHOCYTES ABSOLUTE AUTO 2.19 K/mm3 (0.84-5.20); LYMPHOCYTES PERCENT AUTO 35 % (21-46); MONOCYTES ABSOLUTE AUTO 0.43 K/mm3 (0.16-1.47); MONOCYTES PERCENT AUTO 7 % (4-13); Mean Corpuscular HGB Conc 34.2 g/dL (31.5-36.5); Mean Corpuscular Volume 90 fL (80-100); Mean Platelet Volume 11.4 fL (9.1-12.4); NEUTROPHILS ABSOLUTE AUTO 3.45 K/mm3 (1.96-9.15); NEUTROPHILS PERCENT AUTO 56 % (41-73); Platelet Count 164 K/mm3 (150-400); RDW Coefficient Variation 11.9 % (11.7-14.2); RDW Standard Deviation 39.4 fL (35.1-46.3); Red Blood Cell Count 4.07 M/mm3 (3.80-5.20); White Blood Cell Count 6.18 K/mm3 (4.00-11.30)
[2021-04-11 09:40] LABS: Chloride (POC) 97 mmol/L (98-108); Glucose (ISTAT POC) 367 mg/dL (70-99); Hemoglobin (POC) 12.2 g/dL (12.0-16.0); Potassium (POC) 3.7 mmol/L (3.5-5.5); Sodium (POC) 134 mmol/L (135-148); Total CO2 (POC) 25 mmol/L (21-32)
[2021-04-11 10:18] LABS: Alanine Aminotransfer (ALT/SGP 22 U/L (12-78); Albumin, Blood 3.9 g/dL (3.4-5.0); Alk Phos 113 U/L (50-136); Anion Gap 8 mmol/L (6-16); Aspartate Aminotrans (AST/SGOT 17 U/L (12-37); Bilirubin, Total 1.2 mg/dL (0.1-1.0); Blood Urea Nitrogen 26 mg/dL (8-24); Bun/Creatinine Ratio 26.9 (12.0-20.0); CO2, Blood 26 mmol/L (21-32); Calcium, Blood 9.1 mg/dL (8.5-10.1); Chloride, Blood 99 mmol/L (98-108); Creatinine, Blood 0.97 mg/dL (0.40-1.00); Glomerular Filtration Rate >60 (60-); Glucose, Blood 388 mg/dL (70-99); Potassium, Blood 3.4 mmol/L (3.5-5.5); Sodium, Blood 133 mmol/L (136-145); Total Protein, Blood 7.9 g/dL (6.4-8.2)
[2021-04-11 10:18] LABS: Base Excess Venous 0.9 mmol/L; PCO2 Venous 43.7 mmHg (38-42); PO2 Venous 137 mmHg (38-42); pH Blood Venous 7.38 (7.34-7.37)
[2021-04-11 11:02] LABS: Source, Urine Clean Catch
[2021-04-11 11:08] LABS: Appearance, Urine Hazy (Clear); Bilirubin, Urine Neg (Neg); Blood, Urine 1+ (Neg); Color, Urine Yellow (P-Yellow); Glucose Qualitative, Urine 4+ (Neg); Ketones, Urine 2+ (Neg); Leukocyte Esterase, Urine Neg (Neg); Nitrite, Urine Neg (Neg); Protein, Urine Neg (Neg); Urobilinogen, Urine NORM (Normal); pH, Urine 6.5 (5.0-8.0)
[2021-04-11 11:24] LABS: Bacteria Rare /hpf; Squamous Epithelial Cells Few /hpf (Few); White Blood Cells, Urine 0-2 /hpf (0-5)
== END 2021-04-11 11:50 | disposition home or self-care (01) ==
LOC: ER 08:59
PROVIDERS: Emergency Medicine
DX: E10.65 Type 1 diabetes mellitus with hyperglycemia (principal); E86.0 Dehydration; E87.6 Hypokalemia; Z88.2 Allergy status to sulfonamides; Z88.5 Allergy status to narcotic agent; Z88.8 Allergy status to other drugs, medicaments and biological substances; Z79.899 Other long term (current) drug therapy; K21.9 Gastro-esophageal reflux disease without esophagitis; F17.210 Nicotine dependence, cigarettes, uncomplicated
CPT/HCPCS: 36415; 80047; 80053; 81001; 82803; 82947; 85014; 85025; 93005; 93010; 96360; 99285-25; A9270; J7030

== ENCOUNTER → 2021-05-15 | Outpatient (CLI) | payer OTHER ==
[2021-05-15 15:38] LABS: BASOPHILS ABSOLUTE AUTO 0.04 K/mm3 (0.00-0.23); BASOPHILS PERCENT AUTO 1 % (0-2); EOSINOPHILS ABSOLUTE AUTO 0.01 K/mm3 (0.00-0.68); EOSINOPHILS PERCENT AUTO 0 % (0-6); Hematocrit 37.6 % (33.0-51.0); Hemoglobin 12.6 g/dL (11.5-16.0); IMMATURE GRAN ABSOLUTE AUTO 0.02 K/mm3 (0.00-0.10); IMMATURE GRAN PERCENT AUTO 0 % (0-1); LYMPHOCYTES ABSOLUTE AUTO 3.25 K/mm3 (0.84-5.20); LYMPHOCYTES PERCENT AUTO 44 % (21-46); MONOCYTES ABSOLUTE AUTO 0.42 K/mm3 (0.16-1.47); MONOCYTES PERCENT AUTO 6 % (4-13); Mean Corpuscular HGB 30.1 pg (26.0-34.0); Mean Corpuscular HGB Conc 33.5 g/dL (31.5-36.5); Mean Corpuscular Volume 90 fL (80-100); Mean Platelet Volume 12.1 fL (9.1-12.4); NEUTROPHILS ABSOLUTE AUTO 3.62 K/mm3 (1.96-9.15); NEUTROPHILS PERCENT AUTO 49 % (41-73); Platelet Count 149 K/mm3 (150-400); RDW Coefficient Variation 12.4 % (11.7-14.2); RDW Standard Deviation 40.5 fL (35.1-46.3); Red Blood Cell Count 4.19 M/mm3 (3.80-5.20); White Blood Cell Count 7.36 K/mm3 (4.00-11.30)
[2021-05-15 15:44] LABS: Alanine Aminotransfer (ALT/SGP 19 U/L (12-78); Albumin, Blood 3.8 g/dL (3.4-5.0); Alk Phos 85 U/L (50-136); Anion Gap 4 mmol/L (6-16); Aspartate Aminotrans (AST/SGOT 13 U/L (12-37); Blood Urea Nitrogen 16 mg/dL (8-24); Bun/Creatinine Ratio 19.6 (12.0-20.0); CO2, Blood 28 mmol/L (21-32); Calcium, Blood 9.2 mg/dL (8.5-10.1); Chloride, Blood 105 mmol/L (98-108); Creatinine, Blood 0.82 mg/dL (0.40-1.00); Globulin, Blood 3.8 g/dL (2.2-4.0); Glomerular Filtration Rate >60 (60-); Glucose, Blood 239 mg/dL (70-99); Potassium, Blood 3.8 mmol/L (3.5-5.5); Sodium, Blood 137 mmol/L (136-145); Total Protein, Blood 7.6 g/dL (6.4-8.2)
== END | disposition home or self-care (01) ==
LOC: LAB 14:45 → LAB SHORT 14:45
PROVIDERS: Nurse Practitioner Family
DX: R10.31 Right lower quadrant pain (principal)
CPT/HCPCS: 80053; 83690; 85025

== ENCOUNTER 2021-05-20 16:09 | Emergency (ER) | payer OTHER ==
[~2021-05-20] VITALS: Ht 165.1 cm; Wt 53.1 kg
[2021-05-20 17:08] LABS: Base Excess Venous -12.5 mmol/L; Bicarbonate Venous 16.1 mmol/L (24.0-30.0); PCO2 Venous 23.5 mmHg (38-42); pH Blood Venous 7.35 (7.34-7.37)
[2021-05-20 17:09] LABS: Source, Urine Clean Catch
[2021-05-20 17:15] LABS: Appearance, Urine Clear (Clear); Bilirubin, Urine Neg (Neg); Blood, Urine 2+ (Neg); Color, Urine Yellow (P-Yellow); Glucose Qualitative, Urine 4+ (Neg); Ketones, Urine 3+ (Neg); Leukocyte Esterase, Urine 1+ (Neg); Nitrite, Urine Neg (Neg); Protein, Urine 1+ (Neg); Urobilinogen, Urine NORM (Normal)
[2021-05-20 17:29] LABS: Alanine Aminotransfer (ALT/SGP 24 U/L (12-78); Albumin, Blood 3.6 g/dL (3.4-5.0); Albumin/Globulin Ratio 0.9 (0.8-1.8); Alk Phos 82 U/L (50-136); Anion Gap 17 mmol/L (6-16); Aspartate Aminotrans (AST/SGOT 27 U/L (12-37); Bilirubin, Total 1.7 mg/dL (0.1-1.0); Blood Urea Nitrogen 20 mg/dL (8-24); Bun/Creatinine Ratio 19.8 (12.0-20.0); CO2, Blood 12 mmol/L (21-32); Calcium, Blood 8.7 mg/dL (8.5-10.1); Chloride, Blood 102 mmol/L (98-108); Creatinine, Blood 1.01 mg/dL (0.40-1.00); Globulin, Blood 3.8 g/dL (2.2-4.0); Glomerular Filtration Rate >60 (60-); Glucose, Blood 458 mg/dL (70-99); Potassium, Blood 3.7 mmol/L (3.5-5.5); Sodium, Blood 131 mmol/L (136-145); Total Protein, Blood 7.4 g/dL (6.4-8.2)
[2021-05-20 17:39] LABS: BASOPHILS ABSOLUTE AUTO 0.03 K/mm3 (0.00-0.23); BASOPHILS PERCENT AUTO 0 % (0-2); EOSINOPHILS ABSOLUTE AUTO 0.01 K/mm3 (0.00-0.68); EOSINOPHILS PERCENT AUTO 0 % (0-6); Hematocrit 38.4 % (33.0-51.0); Hemoglobin 12.8 g/dL (11.5-16.0); IMMATURE GRAN ABSOLUTE AUTO 0.09 K/mm3 (0.00-0.10); IMMATURE GRAN PERCENT AUTO 1 % (0-1); LYMPHOCYTES ABSOLUTE AUTO 2.44 K/mm3 (0.84-5.20); LYMPHOCYTES PERCENT AUTO 36 % (21-46); MONOCYTES ABSOLUTE AUTO 0.26 K/mm3 (0.16-1.47); MONOCYTES PERCENT AUTO 4 % (4-13); Mean Corpuscular HGB Conc 33.3 g/dL (31.5-36.5); Mean Corpuscular Volume 93 fL (80-100); NEUTROPHILS ABSOLUTE AUTO 3.87 K/mm3 (1.96-9.15); NEUTROPHILS PERCENT AUTO 58 % (41-73); RDW Coefficient Variation 12.5 % (11.7-14.2); RDW Standard Deviation 42.5 fL (35.1-46.3); Red Blood Cell Count 4.13 M/mm3 (3.80-5.20)
[2021-05-20 17:59] LABS: Bacteria Rare /hpf; Hyaline Casts 0-2 /lpf (0-2); Squamous Epithelial Cells Mod /hpf (Few)
== END 2021-05-20 22:27 | disposition home or self-care (01) ==
LOC: ER 16:09
PROVIDERS: Physician Assistant
DX: E10.65 Type 1 diabetes mellitus with hyperglycemia (principal); E86.0 Dehydration; Z88.2 Allergy status to sulfonamides; Z88.5 Allergy status to narcotic agent; Z88.8 Allergy status to other drugs, medicaments and biological substances; Z79.899 Other long term (current) drug therapy; K21.9 Gastro-esophageal reflux disease without esophagitis; F17.210 Nicotine dependence, cigarettes, uncomplicated
CPT/HCPCS: 36415; 80053; 81001; 82010; 82803; 82947; 85025; 87086; 93005; 93010; 96374; 99285-25; J1885; J2550; J7030

== ENCOUNTER 2021-06-14 16:03 | Emergency (ER) | payer OTHER ==
[~2021-06-14] VITALS: Ht 165.1 cm; Wt 54.4 kg
[2021-06-14 17:17] LABS: BASOPHILS ABSOLUTE AUTO 0.06 K/mm3 (0.00-0.23); BASOPHILS PERCENT AUTO 1 % (0-2); EOSINOPHILS ABSOLUTE AUTO 0.03 K/mm3 (0.00-0.68); EOSINOPHILS PERCENT AUTO 0 % (0-6); Hematocrit 39.5 % (33.0-51.0); Hemoglobin 13.3 g/dL (11.5-16.0); IMMATURE GRAN ABSOLUTE AUTO 0.07 K/mm3 (0.00-0.10); IMMATURE GRAN PERCENT AUTO 1 % (0-1); LYMPHOCYTES ABSOLUTE AUTO 2.94 K/mm3 (0.84-5.20); LYMPHOCYTES PERCENT AUTO 31 % (21-46); MONOCYTES ABSOLUTE AUTO 0.56 K/mm3 (0.16-1.47); MONOCYTES PERCENT AUTO 6 % (4-13); Mean Corpuscular HGB Conc 33.7 g/dL (31.5-36.5); Mean Corpuscular Volume 89 fL (80-100); Mean Platelet Volume 11.6 fL (9.1-12.4); NEUTROPHILS ABSOLUTE AUTO 5.74 K/mm3 (1.96-9.15); NEUTROPHILS PERCENT AUTO 61 % (41-73); Platelet Count 173 K/mm3 (150-400); RDW Standard Deviation 39.8 fL (35.1-46.3); Red Blood Cell Count 4.44 M/mm3 (3.80-5.20)
[2021-06-14 17:17] LABS: Source, Urine Clean Catch
[2021-06-14 17:21] LABS: Appearance, Urine Clear (Clear); Bilirubin, Urine Neg (Neg); Blood, Urine Neg (Neg); Color, Urine Yellow (P-Yellow); Glucose Qualitative, Urine 4+ (Neg); Ketones, Urine 1+ (Neg); Leukocyte Esterase, Urine 1+ (Neg); Nitrite, Urine Neg (Neg); Protein, Urine 1+ (Neg); Urobilinogen, Urine NORM (Normal)
[2021-06-14 17:37] LABS: Bacteria Few /hpf; Red Blood Cells, Urine 0-2 /hpf (0-2); Squamous Epithelial Cells Rare /hpf (Few)
[2021-06-14 17:38] LABS: Amorphous Light (0-Heavy); Mucus Light (0-Heavy)
[2021-06-14 18:34] LABS: Alanine Aminotransfer (ALT/SGP 56 U/L (12-78); Albumin, Blood 3.8 g/dL (3.4-5.0); Albumin/Globulin Ratio 1.1 (0.8-1.8); Alk Phos 163 U/L (50-136); Anion Gap 8 mmol/L (6-16); Aspartate Aminotrans (AST/SGOT 23 U/L (12-37); Bilirubin, Total 1.4 mg/dL (0.1-1.0); Blood Urea Nitrogen 21 mg/dL (8-24); Bun/Creatinine Ratio 23.4 (12.0-20.0); CO2, Blood 24 mmol/L (21-32); Calcium, Blood 9.1 mg/dL (8.5-10.1); Chloride, Blood 97 mmol/L (98-108); Globulin, Blood 3.4 g/dL (2.2-4.0); Glomerular Filtration Rate >60 (60-); Glucose, Blood 443 mg/dL (70-99); Potassium, Blood 4.5 mmol/L (3.5-5.5); Sodium, Blood 129 mmol/L (136-145); Total Protein, Blood 7.2 g/dL (6.4-8.2)
[2021-06-14 18:42] LABS: Beta-hydroxybutyrate 10.7 mg/dL (0.2-2.8)
== END 2021-06-14 18:42 | disposition left against medical advice (07) ==
LOC: ER 16:03
PROVIDERS: Physician Assistant
DX: E10.65 Type 1 diabetes mellitus with hyperglycemia (principal); Z53.21 Procedure and treatment not carried out due to patient leaving prior to being seen by health care provider
CPT/HCPCS: 36415; 80053; 81001; 82010; 82947; 85025; 87086; 93005; 93010; 99282; J7030

== ENCOUNTER → 2021-06-28 | Outpatient (CLI) | payer OTHER ==
[2021-06-28 14:00] LABS: Candida species (DNA Probe) Negative (NEGATIVE); G. vaginalis (DNA Probe) Negative (NEGATIVE); T. vaginalis (DNA Probe) Negative (NEGATIVE)
[2021-06-30 01:07] LABS: CHLAMYDIA TRACHOMATIS, NAA Negative (Negative)
== END | disposition home or self-care (01) ==
LOC: LAB SHORT 08:49
PROVIDERS: Student in an Organized Health Care Education/Training Program
DX: Z12.4 Encounter for screening for malignant neoplasm of cervix (principal); Z11.3 Encounter for screening for infections with a predominantly sexual mode of transmission; N89.8 Other specified noninflammatory disorders of vagina
CPT/HCPCS: 87480; 87491; 87510; 87591; 87660

== ENCOUNTER 2021-08-25 19:18 | Emergency (ER) | payer BC, OTHER ==
[~2021-08-25] VITALS: Ht 165.1 cm; Wt 56.7 kg
[2021-08-25 20:12] LABS: BASOPHILS ABSOLUTE AUTO 0.04 K/mm3 (0.00-0.23); BASOPHILS PERCENT AUTO 1 % (0-2); EOSINOPHILS ABSOLUTE AUTO 0.01 K/mm3 (0.00-0.68); EOSINOPHILS PERCENT AUTO 0 % (0-6); Hematocrit 38.4 % (33.0-51.0); Hemoglobin 12.6 g/dL (11.5-16.0); IMMATURE GRAN ABSOLUTE AUTO 0.02 K/mm3 (0.00-0.10); IMMATURE GRAN PERCENT AUTO 0 % (0-1); LYMPHOCYTES PERCENT AUTO 36 % (21-46); MONOCYTES PERCENT AUTO 7 % (4-13); Mean Corpuscular HGB 30.1 pg (26.0-34.0); Mean Corpuscular HGB Conc 32.8 g/dL (31.5-36.5); Mean Corpuscular Volume 92 fL (80-100); Mean Platelet Volume 12.1 fL (9.1-12.4); NEUTROPHILS ABSOLUTE AUTO 3.15 K/mm3 (1.96-9.15); NEUTROPHILS PERCENT AUTO 56 % (41-73); Platelet Count 155 K/mm3 (150-400); RDW Coefficient Variation 12.3 % (11.7-14.2); RDW Standard Deviation 40.8 fL (35.1-46.3); Red Blood Cell Count 4.18 M/mm3 (3.80-5.20); White Blood Cell Count 5.62 K/mm3 (4.00-11.30)
[2021-08-25 20:15] LABS: Source, Urine Clean Catch
[2021-08-25 20:19] LABS: Appearance, Urine Clear (Clear); Bilirubin, Urine Neg (Neg); Blood, Urine 1+ (Neg); Color, Urine Yellow (P-Yellow); Glucose Qualitative, Urine 4+ (Neg); Ketones, Urine Neg (Neg); Leukocyte Esterase, Urine Neg (Neg); Nitrite, Urine Neg (Neg); Protein, Urine Neg (Neg); Urobilinogen, Urine NORM (Normal)
[2021-08-25 20:29] LABS: Bacteria Rare /hpf; Squamous Epithelial Cells Few /hpf (Few); White Blood Cells, Urine 0-2 /hpf (0-5)
[2021-08-25 20:43] LABS: Beta-hydroxybutyrate 1.6 mg/dL (0.2-2.8)
[2021-08-25 20:46] LABS: Magnesium, Blood 2.1 mg/dL (1.6-2.4); Phosphorus, Blood 4.6 mg/dL (2.5-4.9)
[2021-08-25 20:49] LABS: Albumin, Blood 3.8 g/dL (3.4-5.0); Albumin/Globulin Ratio 1.1 (0.8-1.8); Bilirubin, Total 0.7 mg/dL (0.1-1.0); Bun/Creatinine Ratio 13.3 (12.0-20.0); Calcium, Blood 8.8 mg/dL (8.5-10.1); Creatinine, Blood 1.13 mg/dL (0.40-1.00); Globulin, Blood 3.6 g/dL (2.2-4.0); Potassium, Blood 4.9 mmol/L (3.5-5.5); Total Protein, Blood 7.4 g/dL (6.4-8.2)
[2021-08-25] MEDS ORDERED: TOUJEO SOL300 UNIT/2 SC (21:36)
[2021-08-25 21:40] LABS: Bicarbonate Venous 23.5 mmol/L (24.0-30.0); PCO2 Venous 44.2 mmHg (38-42); PO2 Venous 168 mmHg (38-42); pH Blood Venous 7.35 (7.34-7.37)
[2021-08-25] MEDS ORDERED: LYUMJEV KW100 UNIT/1 (21:40)
[2021-08-25 22:35] LABS: Calcium, Ionized (POC) 1.18 mmol/L (1.10-1.46); Chloride (POC) 103 mmol/L (98-108); Glucose (ISTAT POC) 459 mg/dL (70-99); Hemoglobin (POC) 11.6 g/dL (12.0-16.0); Potassium (POC) 3.7 mmol/L (3.5-5.5); Sodium (POC) 136 mmol/L (135-148); Total CO2 (POC) 24 mmol/L (21-32)
== END 2021-08-25 23:11 | disposition home or self-care (01) ==
LOC: ER 19:18
PROVIDERS: Emergency Medicine; Physician Assistant
DX: E10.65 Type 1 diabetes mellitus with hyperglycemia (principal); K21.9 Gastro-esophageal reflux disease without esophagitis; F17.210 Nicotine dependence, cigarettes, uncomplicated; Z79.899 Other long term (current) drug therapy; Z88.2 Allergy status to sulfonamides
CPT/HCPCS: 36415; 80047; 80053; 81001; 82010; 82803; 82947; 83690; 83735; 84100; 85014; 85025; 96374; 96375; 99284-25; J1200; J1815; J2765; J7030

== ENCOUNTER 2021-12-04 07:45 | Inpatient (IN) | payer BC, OTHER ==
[~2021-12-04] VITALS: Ht 165.1 cm; Wt 61.2 kg
[~2021-12-04 07:45] MED LIST changes: +LYUMJEV KW100 UNIT/1; +TOUJEO SOL300 UNIT/2 SC
[2021-12-04 08:52] LABS: BASOPHILS ABSOLUTE AUTO 0.04 K/mm3 (0.00-0.23); BASOPHILS PERCENT AUTO 0 % (0-2); EOSINOPHILS PERCENT AUTO 0 % (0-6); Hematocrit 39.6 % (33.0-51.0); Hemoglobin 13.2 g/dL (11.5-16.0); IMMATURE GRAN ABSOLUTE AUTO 0.06 K/mm3 (0.00-0.10); IMMATURE GRAN PERCENT AUTO 1 % (0-1); LYMPHOCYTES ABSOLUTE AUTO 1.23 K/mm3 (0.84-5.20); LYMPHOCYTES PERCENT AUTO 13 % (21-46); MONOCYTES ABSOLUTE AUTO 0.53 K/mm3 (0.16-1.47); MONOCYTES PERCENT AUTO 6 % (4-13); Mean Corpuscular HGB 30.5 pg (26.0-34.0); Mean Corpuscular HGB Conc 33.3 g/dL (31.5-36.5); Mean Corpuscular Volume 92 fL (80-100); Mean Platelet Volume 11.1 fL (9.1-12.4); NEUTROPHILS ABSOLUTE AUTO 7.29 K/mm3 (1.96-9.15); NEUTROPHILS PERCENT AUTO 80 % (41-73); Platelet Count 170 K/mm3 (150-400); RDW Coefficient Variation 12.4 % (11.7-14.2); RDW Standard Deviation 41.1 fL (35.1-46.3); Red Blood Cell Count 4.33 M/mm3 (3.80-5.20); White Blood Cell Count 9.15 K/mm3 (4.00-11.30)
[2021-12-04 08:56] LABS: Base Excess Venous -13.7 mmol/L
[2021-12-04 08:57] LABS: pH Blood Venous 7.28 (7.34-7.37)
[2021-12-04 09:21] LABS: Magnesium, Blood 1.9 mg/dL (1.6-2.4)
[2021-12-04 09:38] LABS: Albumin, Blood 4.1 g/dL (3.4-5.0); Albumin/Globulin Ratio 1.1 (0.8-1.8); Beta-hydroxybutyrate 73.7 mg/dL (0.2-2.8); Bilirubin, Total 2.2 mg/dL (0.1-1.0); Bun/Creatinine Ratio 24.5 (12.0-20.0); Calcium, Blood 9.6 mg/dL (8.5-10.1); Creatinine, Blood 1.02 mg/dL (0.40-1.00); Globulin, Blood 3.9 g/dL (2.2-4.0); Potassium, Blood 3.8 mmol/L (3.5-5.5)
[2021-12-04 11:23] LABS: Source, Urine Clean Catch
[2021-12-04] MEDS ORDERED: NORETH EE FE PO (11:24)
[2021-12-04] MEDS ORDERED: OLANZAPINE1022 PO (11:24)
[2021-12-04] MEDS ORDERED: DULOXETINE HCL60 M1 PO (11:24)
[2021-12-04] MEDS ORDERED: LYUMJEV100 UNIT/1 SQ (11:25)
[2021-12-04 11:39] LABS: Bilirubin, Urine Neg (Neg); Blood, Urine 1+ (Neg); Glucose Qualitative, Urine 4+ (Neg); Ketones, Urine 4+ (Neg); Leukocyte Esterase, Urine 1+ (Neg); Nitrite, Urine Neg (Neg); Protein, Urine Neg (Neg); Specific Gravity, Urine 1.015 (1.003-1.022); Urobilinogen, Urine NORM (Normal)
[2021-12-04 11:49] LABS: Appearance, Urine Hazy (Clear); Color, Urine Pale Yellow (P-Yellow)
[2021-12-04 11:55] LABS: Bacteria Few /hpf; Red Blood Cells, Urine 0-2 /hpf (0-2); Squamous Epithelial Cells Mod /hpf (Few)
[2021-12-04 13:35] LABS: Albumin, Blood 3.1 g/dL (3.4-5.0); Anion Gap 15 mmol/L (6-16); Blood Urea Nitrogen 25 mg/dL (8-24); Bun/Creatinine Ratio 26.2 (12.0-20.0); CO2, Blood 13 mmol/L (21-32); Chloride, Blood 109 mmol/L (98-108); Creatinine, Blood 0.96 mg/dL (0.40-1.00); Glomerular Filtration Rate 80 (60-); Glucose, Blood 281 mg/dL (70-99); Phosphorus, Blood 2.4 mg/dL (2.5-4.9); Sodium, Blood 137 mmol/L (136-145)
[2021-12-04 13:45] LABS: Calcium, Blood 7.5 mg/dL (8.5-10.1)
--- NOTE | 2021-12-04 17:48 | NUR ---
WILL ARRIVED TO ICU 5 FROM THE EMERGENCY DEPARTMENT, A & O X4. SHE IS LIVELY AND ENGAGING. SHE IS WITH INSULIN GTT AT 3U/HR AND D5+K @ 150ML/HR. HER IV'S ARE IN THE LEFT HAND AND RIGHT WRIST. SHE IS CAUTIOUS AND CAREFUL WITH HER HANDS. DISCUSSION OF PROVIDING HER WITH A POWER GLIDE OR PICC LINE IS WELL RECEIVED. ELI SPARKS STARTS AT IN THE [facility] WITH [facility] FLOW. HER INSULIN AND D5 ARE UTILIZING THAT SITE. SHE IS GIVEN THE SODIUM PHOSPHATE PER ORDERS. HOURLY GLUCOSE CHECKS BEING DONE. K-PAD PLACED TO THE LEFT SHOULDER FOR "SORENESS" 10/18. SHE IS ABLE TO MAKE HER NEEDS KNOWN AND CHANGE POSITIONS INDEPENDENTLY. 2 NS BOLUSES GIVEN PER 'S ORDERS WITH LAB DRAW MOVED TO 183.
--- NOTE | 2021-12-04 19:44 | NUR ---
ASSUMED CARE OF PT, REPORT RECEIVED. PT IS RESTING QUIETLY RECLINING IN BED HAS BEEN NOTED TO TURN SELF FULLY IND SINCE ARRIVAL. PT DENIES NAUSEA, ADMITS TO 6/10 CRAMPING TIGHT PAIN TO BILAT SHOULDERS WHICH SHE STATES STARTED THIS AM. K-PAD IS IN USE FOR PAIN, PT REQUESTS TYLENOL WHICH IS ADMIN. SHE IS NOTED SPEAKING IN FULL SENTENCES WITHOUT VISIBLE INCREASED WORK OF BREATHING, DENIES SOB/DYSPNEA. DENIES CP/PRESSURE, PRESSURES ARE NOTED MAINTAINING STABLE, CURRENTLY RHYTHM IS SINUS TACH WITH RATE BETWEEN 100 AND 110/MIN, HEART TONES ARE DISTANT, PULSES ARE FULL, NO EDEMA IS NOTED, BRISK CAP REFILL. ACTIVE BOWEL TONES ARE NOTED, ABD SOFT, NONTENDER TO PALPATION. DISCUSSED PLAN OF CARE FOR THIS SHIFT AND PAIN CONTROL GOALS WITH PT, UNDERSTANDING VERBALIZED.
[2021-12-04 20:13] LABS: Albumin, Blood 2.6 g/dL (3.4-5.0); Anion Gap 8 mmol/L (6-16); Blood Urea Nitrogen 17 mg/dL (8-24); Bun/Creatinine Ratio 22.5 (12.0-20.0); CO2, Blood 16 mmol/L (21-32); Calcium, Blood 6.5 mg/dL (8.5-10.1); Chloride, Blood 114 mmol/L (98-108); Creatinine, Blood 0.76 mg/dL (0.40-1.00); Glomerular Filtration Rate 106 (60-); Glucose, Blood 238 mg/dL (70-99); Phosphorus, Blood 2.9 mg/dL (2.5-4.9); Potassium, Blood 4.1 mmol/L (3.5-5.5); Sodium, Blood 138 mmol/L (136-145)
[2021-12-05 00:02] LABS: Albumin, Blood 2.5 g/dL (3.4-5.0); Anion Gap 8 mmol/L (6-16); Blood Urea Nitrogen 15 mg/dL (8-24); Bun/Creatinine Ratio 20.4 (12.0-20.0); CO2, Blood 19 mmol/L (21-32); Calcium, Blood 6.8 mg/dL (8.5-10.1); Chloride, Blood 114 mmol/L (98-108); Creatinine, Blood 0.73 mg/dL (0.40-1.00); Glomerular Filtration Rate 111 (60-); Glucose, Blood 138 mg/dL (70-99); Phosphorus, Blood 2.8 mg/dL (2.5-4.9); Sodium, Blood 141 mmol/L (136-145)
[2021-12-05 02:43] LABS: BASOPHILS ABSOLUTE AUTO 0.04 K/mm3 (0.00-0.23); BASOPHILS PERCENT AUTO 1 % (0-2); EOSINOPHILS ABSOLUTE AUTO 0.04 K/mm3 (0.00-0.68); EOSINOPHILS PERCENT AUTO 1 % (0-6); Hematocrit 29.3 % (33.0-51.0); IMMATURE GRAN ABSOLUTE AUTO 0.04 K/mm3 (0.00-0.10); IMMATURE GRAN PERCENT AUTO 1 % (0-1); LYMPHOCYTES ABSOLUTE AUTO 3.18 K/mm3 (0.84-5.20); LYMPHOCYTES PERCENT AUTO 38 % (21-46); MONOCYTES ABSOLUTE AUTO 0.72 K/mm3 (0.16-1.47); MONOCYTES PERCENT AUTO 9 % (4-13); Mean Corpuscular HGB 31.3 pg (26.0-34.0); Mean Corpuscular HGB Conc 34.1 g/dL (31.5-36.5); Mean Corpuscular Volume 92 fL (80-100); Mean Platelet Volume 10.3 fL (9.1-12.4); NEUTROPHILS ABSOLUTE AUTO 4.28 K/mm3 (1.96-9.15); NEUTROPHILS PERCENT AUTO 52 % (41-73); Platelet Count 143 K/mm3 (150-400); RDW Coefficient Variation 12.6 % (11.7-14.2); RDW Standard Deviation 41.6 fL (35.1-46.3); Red Blood Cell Count 3.19 M/mm3 (3.80-5.20)
[2021-12-05 03:22] LABS: Albumin, Blood 2.5 g/dL (3.4-5.0); Anion Gap 9 mmol/L (6-16); Blood Urea Nitrogen 14 mg/dL (8-24); Bun/Creatinine Ratio 19.2 (12.0-20.0); CO2, Blood 20 mmol/L (21-32); Calcium, Blood 6.9 mg/dL (8.5-10.1); Chloride, Blood 116 mmol/L (98-108); Creatinine, Blood 0.73 mg/dL (0.40-1.00); Glomerular Filtration Rate 111 (60-); Glucose, Blood 173 mg/dL (70-99); Phosphorus, Blood 2.3 mg/dL (2.5-4.9); Sodium, Blood 145 mmol/L (136-145)
--- NOTE | 2021-12-05 04:55 | NUR ---
INSULIN TITRATION PT CALLS RN TO ROOM AND REPORTS THAT HER HOME MONITORING DEVICE FOR BLOOD GLUCOSE ALARMED FOR A RAPIDLY FALLING LEVEL AT THIS TIME, REVIEWED HER HOME MONITORING NUMBERS COMPARED TO POCT GLUCOSE LEVELS, INSULIN GTT ADJUSTED TO 1 UNIT/HR. WILL MONITOR.
--- NOTE | 2021-12-05 05:38 | NUR ---
PT RESTS QUIETLY THROUGHOUT SHIFT, DENIES NAUSEA THROUGHOUT NOC. SHE ROUSES EASILY TO VERBAL STIMULI, INSULIN GTT TITRATED DOWN TO 1 UNIT/HR AND THEN INCREASED TO 1.5 UNITS/HR CURRENTLY. UP TO TOILET WITH SBA FOR LINE MANAGEMENT TO VOID AND TOLERATED WELL. BLOOD GLUCOSE LEVEL AT THE BEGINNING OF THIS SHIFT 232 WITH INSULIN GTT AT 4 UNITS/HR, OF NOTE, SODIUM PHOS INFUSING AT THAT TIME WAS MIXED IN D5, AFTER COMPLETION OF SODIUM PHOS INFUSION, INSULIN GTT WAS TITRATED DOWN TO 3 UNITS/HR AND THEN 1 UNIT/HR BEFORE BEING TITRATED BACK UP TO 1.5 UNITS/HR. PT DOES CONTINUE HER HOME MONITORING REGIMEN UTILIZING SMART PHONE AND CONTINUOUS MONITORING DEVICE, SHE CALLED THIS RN IN TO ROOM NEAR 0500 FOR A RAPID CHANGE IN BLOOD GLUCOSE LEVEL, INSULIN GTT WAS TITRATED FROM 1.5 UNITS/HR TO 1 UNIT/HR, POCT GLUCOSE LEVEL OBTAINED 20 MINUTES AFTER TITRATION AND WAS NOTED TO HAVE INCREASED FROM PREV POCT TESTING, GTT WAS RETURNED TO 1.5 UNITS/HR, WILL CONT TO MONITOR.
[2021-12-05 07:55] LABS: Beta-hydroxybutyrate 3.2 mg/dL (0.2-2.8); Magnesium, Blood 1.6 mg/dL (1.6-2.4); Phosphorus, Blood 2.2 mg/dL (2.5-4.9)
--- NOTE | 2021-12-05 08:00 | NUR ---
WILL WAS AWAKENED FOR HER BLOOD SUGAR, STARTLED AWAKE. SHE STATES SHE DIDN'T SLEEP WELL LAST NIGHT. FELT THAT IT WAS "TOO LOUD". EATING HER BREAKFAST. INSULIN CONTINUES TO BE TITRATED FOR BLOOD SUGAR. PATIENT ANXIOUS TO GET OUT OF THE HOSPITAL. SHE IS FIDGETY.
[2021-12-05 11:12] LABS: Albumin, Blood 2.7 g/dL (3.4-5.0); Anion Gap 8 mmol/L (6-16); Blood Urea Nitrogen 9 mg/dL (8-24); Bun/Creatinine Ratio 13.8 (12.0-20.0); CO2, Blood 18 mmol/L (21-32); Calcium, Blood 7.4 mg/dL (8.5-10.1); Chloride, Blood 117 mmol/L (98-108); Creatinine, Blood 0.65 mg/dL (0.40-1.00); Glomerular Filtration Rate 119 (60-); Glucose, Blood 258 mg/dL (70-99); Phosphorus, Blood 1.4 mg/dL (2.5-4.9); Potassium, Blood 4.1 mmol/L (3.5-5.5); Sodium, Blood 143 mmol/L (136-145)
--- NOTE | 2021-12-05 12:43 | NUR ---
WILL WAS UP AND AMBULATING ABOUT THE UNIT FOR ABOUT AN HOUR. SHE HAS FOUND THAT HER INSULIN PUMP IS OUT OF INSULIN AND DOESN'T HAVE ANYONE TO BRING IT TO HER. MADE AWARE AND ORDERS RECEIVED FOR SS COVERAGE. COVERAGE FOR PRELUNCH CHECK 207 GIVEN, WAITED FOR 30MINUTES AND NOW INSULIN AND D5 1/2NSK+ ARE OFF. SHE ATE WELL FOR LUNCH, IS READY TO REST QUIETLY. STATES SHE IS ANXIOUS ABOUT GOING HOME. WANTS TO GO.
--- NOTE | 2021-12-05 13:43 | NUR ---
PT UP AND WALKING AROUND THE UNIT, TRYING TO KEEP HER ANXIETY LEVEL DOWN.
--- NOTE | 2021-12-05 16:46 | NUR ---
PT'S CONCERNED ABOUT HER BLOOD SUGAR, NOTED THAT HER POTASSIUM PHOSPHATE IS IN DEXTROSE. CALL TO . PT REFUSED IV BOLUS OF NS, ALLOWED ME TO COVER HER SUGAR OF 388. SHE STATES THAT SHE FEELS LIKE THE TREATMENT IS CAUSING HER TO GO THE "WRONG DIRECTION" SHE STATES THAT SHE WAS FEELING BETTER AND THAT SHE CAN CORRECT HER INSULIN WHEN SHE GETS BACK ON HER OWN INSULIN PUMP. SHE IS FRUSTRATED. SHE IS SAYING SHE WOULD LIKE FOR TO DISCHARGE HER AND IF SHE WILL NOT THEN SHE WILL LEAVE [place].
--- NOTE | 2021-12-05 16:55 | NUR ---
SPOKE WITH , SHE WILL DISCHARGE HER WITH ENCOURAGEMENT TO DRINK LOTS OF FLUIDS, MONITOR SUGARS WITH [employer]EX[employer] AND USE HER INSULIN PUMP.
== END 2021-12-05 17:30 | disposition home or self-care (01) | DRG 639 ==
LOC: ER 07:45 → ICUE 11:02 → ERHOLD 11:02 → ICUE 15:08
PROVIDERS: Student in an Organized Health Care Education/Training Program; ADMIT Internal Medicine
DX: E11.10 Type 2 diabetes mellitus with ketoacidosis without coma (principal); Z66 Do not resuscitate; E83.39 Other disorders of phosphorus metabolism; F31.9 Bipolar disorder, unspecified; K21.9 Gastro-esophageal reflux disease without esophagitis; G47.00 Insomnia, unspecified; F60.9 Personality disorder, unspecified; R10.9 Unspecified abdominal pain; G89.29 Other chronic pain; F41.8 Other specified anxiety disorders; F14.90 Cocaine use, unspecified, uncomplicated; M79.7 Fibromyalgia; F17.210 Nicotine dependence, cigarettes, uncomplicated; M62.838 Other muscle spasm; Z98.890 Other specified postprocedural states; Z79.899 Other long term (current) drug therapy
CPT/HCPCS: 36415; 80053; 80069; 81001; 82010; 82803; 82947; 83690; 83735; 84100; 85025; 87086; 93005; 93010; 96361; 96372; 96374; 96375; 99285-25; A9270; C1751; J1650; J1790; J1815; J1885; J7030; J7060

== ENCOUNTER → 2021-12-29 | Outpatient (CLI) | payer OTHER ==
[~2021-12-29] MED LIST changes: +LYUMJEV100 UNIT/1 SQ; +NORETH EE FE PO; +OLANZAPINE1022 PO
== END | disposition home or self-care (01) ==
LOC: LAB FUT 12:50 → LAB SHORT 17:50 → LAB 17:50
DX: K52.9 Noninfective gastroenteritis and colitis, unspecified (principal); R31.9 Hematuria, unspecified
CPT/HCPCS: 87077; 87086; 87186

== ENCOUNTER → 2022-01-04 | Outpatient (CLI) | payer OTHER ==
[2022-01-06 02:07] LABS: CHLAMYDIA TRACHOMATIS, NAA Negative (Negative)
== END | disposition home or self-care (01) ==
LOC: LAB 07:22 → LAB SHORT 07:22
PROVIDERS: Student in an Organized Health Care Education/Training Program
DX: F52.9 Unspecified sexual dysfunction not due to a substance or known physiological condition (principal); R31.9 Hematuria, unspecified
CPT/HCPCS: 87491; 87591

== ENCOUNTER → 2022-01-26 | Outpatient (CLI) | payer OTHER | END | disposition home or self-care (01) | LOC: LAB 16:58 → LAB SHORT 16:58 | DX: R35.0 Frequency of micturition (principal); R30.9 Painful micturition, unspecified | CPT/HCPCS: 87077; 87086; 87186 ==

== ENCOUNTER 2022-03-24 15:34 | Emergency (ER) | payer OTHER ==
[~2022-03-24] VITALS: Ht 165.1 cm; Wt 57.6 kg
[2022-03-24 16:34] LABS: Base Excess Venous -6.3 mmol/L; PCO2 Venous 43.7 mmHg (38-42)
[2022-03-24 16:35] LABS: BASOPHILS ABSOLUTE AUTO 0.05 K/mm3 (0.00-0.23); BASOPHILS PERCENT AUTO 0 % (0-2); EOSINOPHILS ABSOLUTE AUTO 0.02 K/mm3 (0.00-0.68); EOSINOPHILS PERCENT AUTO 0 % (0-6); Hematocrit 37.2 % (33.0-51.0); Hemoglobin 12.4 g/dL (11.5-16.0); IMMATURE GRAN ABSOLUTE AUTO 0.09 K/mm3 (0.00-0.10); IMMATURE GRAN PERCENT AUTO 1 % (0-1); LYMPHOCYTES ABSOLUTE AUTO 2.54 K/mm3 (0.84-5.20); LYMPHOCYTES PERCENT AUTO 19 % (21-46); MONOCYTES ABSOLUTE AUTO 0.76 K/mm3 (0.16-1.47); MONOCYTES PERCENT AUTO 6 % (4-13); Mean Corpuscular HGB 29.7 pg (26.0-34.0); Mean Corpuscular HGB Conc 33.3 g/dL (31.5-36.5); Mean Corpuscular Volume 89 fL (80-100); Mean Platelet Volume 9.9 fL (9.1-12.4); NEUTROPHILS ABSOLUTE AUTO 10.27 K/mm3 (1.96-9.15); NEUTROPHILS PERCENT AUTO 75 % (41-73); Platelet Count 412 K/mm3 (150-400); RDW Coefficient Variation 11.9 % (11.7-14.2); RDW Standard Deviation 37.8 fL (35.1-46.3); Red Blood Cell Count 4.17 M/mm3 (3.80-5.20); White Blood Cell Count 13.73 K/mm3 (4.00-11.30); pH Blood Venous 7.28 (7.34-7.37)
[2022-03-24] MEDS ORDERED: HUMALOG100 UNIT/1 SC (16:43)
[2022-03-24 16:58] LABS: Albumin, Blood 3.6 g/dL (3.4-5.0); Albumin/Globulin Ratio 0.7 (0.8-1.8); Bilirubin, Total 0.7 mg/dL (0.1-1.0); Bun/Creatinine Ratio 23.4 (12.0-20.0); Calcium, Blood 10.3 mg/dL (8.5-10.1); Creatinine, Blood 1.41 mg/dL (0.40-1.00); Globulin, Blood 4.9 g/dL (2.2-4.0); Potassium, Blood 4.4 mmol/L (3.5-5.5); Total Protein, Blood 8.5 g/dL (6.4-8.2)
[2022-03-24 18:31] LABS: Source, Urine Clean Catch
[2022-03-24 18:40] LABS: Appearance, Urine Turbid (Clear); Bilirubin, Urine Neg (Neg); Blood, Urine 5+ (Neg); Color, Urine Yellow (P-Yellow); Glucose Qualitative, Urine 4+ (Neg); Ketones, Urine 3+ (Neg); Leukocyte Esterase, Urine 3+ (Neg); Nitrite, Urine Neg (Neg); Protein, Urine 2+ (Neg); Urobilinogen, Urine NORM (Normal)
[2022-03-24 18:47] LABS: Bacteria Mod /hpf; Hyaline Casts 0-2 /lpf (0-2); Red Blood Cells, Urine 25-50 /hpf (0-2); Squamous Epithelial Cells Many /hpf (Few)
[2022-03-24] MEDS ORDERED: PHENERGAN25 MG PR (18:53)
[2022-03-24] MEDS ORDERED: PROM25 PO (18:53)
== END 2022-03-24 19:01 | disposition home or self-care (01) ==
LOC: ER 15:34
PROVIDERS: Physician Assistant
DX: S09.90XA Unspecified injury of head, initial encounter (principal); E10.65 Type 1 diabetes mellitus with hyperglycemia; E86.0 Dehydration; E87.20 Acidosis, unspecified; E10.43 Type 1 diabetes mellitus with diabetic autonomic (poly)neuropathy; K31.84 Gastroparesis; K21.9 Gastro-esophageal reflux disease without esophagitis; F17.210 Nicotine dependence, cigarettes, uncomplicated; Z88.5 Allergy status to narcotic agent; Z88.2 Allergy status to sulfonamides; Z88.8 Allergy status to other drugs, medicaments and biological substances; Z79.899 Other long term (current) drug therapy; W01.0XXA Fall on same level from slipping, tripping and stumbling without subsequent striking against object, initial encounter
CPT/HCPCS: 71046; 80053; 81001; 82803; 82947; 85025; 87086; 96361; 96374; 96375; 99284-25; J1200; J2765; J7030

== ENCOUNTER 2022-08-06 12:56 | Observation (INO) | payer OTHER ==
[~2022-08-06] VITALS: Ht 165.1 cm; Wt 66.5 kg
[~2022-08-06 12:56] MED LIST changes: +CEFD300 PO
[2022-08-06 13:55] LABS: BASOPHILS ABSOLUTE AUTO 0.05 K/mm3 (0.00-0.23); BASOPHILS PERCENT AUTO 0 % (0-2); EOSINOPHILS PERCENT AUTO 0 % (0-6); Hematocrit 32.7 % (33.0-51.0); Hemoglobin 10.9 g/dL (11.5-16.0); IMMATURE GRAN ABSOLUTE AUTO 0.11 K/mm3 (0.00-0.10); IMMATURE GRAN PERCENT AUTO 1 % (0-1); LYMPHOCYTES ABSOLUTE AUTO 1.38 K/mm3 (0.84-5.20); LYMPHOCYTES PERCENT AUTO 7 % (21-46); MONOCYTES ABSOLUTE AUTO 0.82 K/mm3 (0.16-1.47); MONOCYTES PERCENT AUTO 4 % (4-13); Mean Corpuscular HGB 29.3 pg (26.0-34.0); Mean Corpuscular HGB Conc 33.3 g/dL (31.5-36.5); Mean Corpuscular Volume 88 fL (80-100); Mean Platelet Volume 11.3 fL (9.1-12.4); NEUTROPHILS ABSOLUTE AUTO 17.05 K/mm3 (1.96-9.15); NEUTROPHILS PERCENT AUTO 88 % (41-73); Platelet Count 173 K/mm3 (150-400); RDW Coefficient Variation 12.6 % (11.7-14.2); RDW Standard Deviation 40.2 fL (35.1-46.3); Red Blood Cell Count 3.72 M/mm3 (3.80-5.20); White Blood Cell Count 19.41 K/mm3 (4.00-11.30)
[2022-08-06 14:04] LABS: Bicarbonate Venous 17.3 mmol/L (24.0-30.0); PCO2 Venous 36.8 mmHg (38-42)
[2022-08-06 14:05] LABS: pH Blood Venous 7.28 (7.34-7.37)
[2022-08-06 14:09] LABS: Base Excess Venous -9.6 mmol/L
[2022-08-06 14:23] LABS: Albumin, Blood 3.2 g/dL (3.4-5.0); Albumin/Globulin Ratio 0.8 (0.8-1.8); Bilirubin, Total 0.8 mg/dL (0.1-1.0); Calcium, Blood 8.5 mg/dL (8.5-10.1); Creatinine, Blood 1.25 mg/dL (0.40-1.00); Globulin, Blood 4.1 g/dL (2.2-4.0); Potassium, Blood 4.6 mmol/L (3.5-5.5); Total Protein, Blood 7.3 g/dL (6.4-8.2)
[2022-08-06 14:47] LABS: Source, Urine Voided
[2022-08-06 15:03] LABS: Appearance, Urine Hazy (Clear); Bilirubin, Urine Neg (Neg); Blood, Urine 4+ (Neg); Glucose Qualitative, Urine 4+ (Neg); Ketones, Urine 3+ (Neg); Leukocyte Esterase, Urine 2+ (Neg); Nitrite, Urine Neg (Neg); Protein, Urine 1+ (Neg); Urobilinogen, Urine NORM (Normal)
[2022-08-06 15:08] LABS: Color, Urine Pale Yellow (P-Yellow)
[2022-08-06 15:10] LABS: Bacteria Many /hpf; Squamous Epithelial Cells Many /hpf (Few); White Blood Cells, Urine TNTC /hpf (0-5)
[2022-08-06 15:11] LABS: Mucus Light (0-Heavy); Transitional Epithelial Cells Rare /hpf (0-Rare)
[2022-08-06 15:13] LABS: Magnesium, Blood 2.4 mg/dL (1.6-2.4)
[2022-08-06 15:20] LABS: Beta-hydroxybutyrate 44.9 mg/dL (0.2-2.8); Phosphorus, Blood 3.4 mg/dL (2.5-4.9)
[2022-08-06 16:47] LABS: Influenza A, PCR NEGATIVE (NEGATIVE); Influenza B, PCR NEGATIVE (NEGATIVE); Resp Syncytial Virus, PCR NEGATIVE (NEGATIVE); SARS-Cov-2 (COVID-19) PCR, MMC NEGATIVE (NEGATIVE)
--- NOTE | 2022-08-06 18:43 | NUR ---
ARRIVAL TO ICU PT ARRIVES TO ICU FROM ER AT 1831 FOR DKA. PT TEARFUL AND ANXIOUS. ABLE TO REDIRECT. C/O FLANK PAIN. 1/2 NS c KCL INFUSING AT 250ML/HR. CBG ON ARRIAL 454. PT STATES SHE IS SENSITIVE TO INSULIN GTT. STARTED AT 1 UNIT/HR. POOR IV ACCESS. NORBERT AT BEDSIDE PLACING POWERGLIDE. WILL CONTINUE TO MONITOR UNTIL REPORT TO NOC SHIFT.
--- NOTE | 2022-08-06 20:02 | NUR ---
ASSUMED CARE OF PT AT 1930 BEDSIDE REPORT RECEIEVED. PT RATES PAIN IMPROVED POST TORADOL AND RATES CURRENT PAIN SCALE 3/10 TO BILAT FLANKS. DENIES CURRENT N/V. STATES THAT SHE IS FEELING SLEEPY AND WOULD LIKE TO REST HOWEVER DOES UNDERSTAND THAT ADMISSION WILL REQUIRE MULTIPLE QUERIES REGARDING MEDS AND HX, SHE IS AGREEABLE TO THIS. STATES THAT INSULIN PUMP IS OFF AND THAT IT WILL ALARM EVERY 15 MINUTES UNTIL IT'S BATTERY DIES. INSULIN GTT CURRENTLY AT 1 UNIT/HR, WILL TITRATE PER ORDERS.
[2022-08-06 20:12] LABS: Bun/Creatinine Ratio 15.7 (12.0-20.0); Calcium, Blood 7.6 mg/dL (8.5-10.1); Creatinine, Blood 1.08 mg/dL (0.40-1.00); Potassium, Blood 4.6 mmol/L (3.5-5.5)
[2022-08-06] MEDS ORDERED: HUMALOG100 UNIT/1 SC (20:14)
[2022-08-06] MEDS ORDERED: MIRT15 PO (20:16)
[2022-08-06] MEDS ORDERED: Seroquel Xr50 MG PO (20:17)
[2022-08-06] MEDS ORDERED: BUSP10 PO (20:18)
[2022-08-06] MEDS ORDERED: LAMO100 PO (20:18)
[2022-08-06] MEDS ORDERED: OLAN10A PO (20:19)
[2022-08-06 21:04] LABS: U Amphetamine Screen DETECTED; U Methamphetamine Screen DETECTED
[2022-08-06 21:05] LABS: U Barbituate Screen Not Detected; U Benzodiazapine Screen Not Detected; U Buprenorphine Screen Not Detected; U Cannabinoids Screen Not Detected; U Cocaine Screen Not Detected; U Methadone Screen Not Detected; U Opiates Screen Not Detected; U Oxycodone Screen Not Detected; U Phencyclidine Screen Not Detected; U Propoxyphene Screen Not Detected
[2022-08-07 01:48] LABS: BASOPHILS ABSOLUTE AUTO 0.04 K/mm3 (0.00-0.23); BASOPHILS PERCENT AUTO 0 % (0-2); EOSINOPHILS ABSOLUTE AUTO 0.01 K/mm3 (0.00-0.68); EOSINOPHILS PERCENT AUTO 0 % (0-6); Hematocrit 27.2 % (33.0-51.0); Hemoglobin 9.3 g/dL (11.5-16.0); IMMATURE GRAN ABSOLUTE AUTO 0.16 K/mm3 (0.00-0.10); IMMATURE GRAN PERCENT AUTO 1 % (0-1); LYMPHOCYTES ABSOLUTE AUTO 1.29 K/mm3 (0.84-5.20); LYMPHOCYTES PERCENT AUTO 9 % (21-46); MONOCYTES ABSOLUTE AUTO 0.81 K/mm3 (0.16-1.47); MONOCYTES PERCENT AUTO 6 % (4-13); Mean Corpuscular HGB 29.6 pg (26.0-34.0); Mean Corpuscular HGB Conc 34.2 g/dL (31.5-36.5); Mean Corpuscular Volume 87 fL (80-100); Mean Platelet Volume 10.6 fL (9.1-12.4); NEUTROPHILS ABSOLUTE AUTO 12.44 K/mm3 (1.96-9.15); NEUTROPHILS PERCENT AUTO 84 % (41-73); Platelet Count 129 K/mm3 (150-400); RDW Coefficient Variation 12.9 % (11.7-14.2); RDW Standard Deviation 40.4 fL (35.1-46.3); Red Blood Cell Count 3.14 M/mm3 (3.80-5.20); White Blood Cell Count 14.75 K/mm3 (4.00-11.30)
[2022-08-07 01:57] LABS: Bun/Creatinine Ratio 14.4 (12.0-20.0); Calcium, Blood 7.3 mg/dL (8.5-10.1); Creatinine, Blood 1.04 mg/dL (0.40-1.00); Magnesium, Blood 1.8 mg/dL (1.6-2.4); Potassium, Blood 4.4 mmol/L (3.5-5.5)
--- NOTE | 2022-08-07 05:29 | NUR ---
SUMMARY PT RESTS QUIETLY THROUGHOUT NOC, DENIES NAUSEA, PAIN CONTROLLED WITH TORADOL 15 MG IV ADMIN AT SHIFT CHANGE BY OFFGOING DAYSHIFT RN AND THEN AT 0030 BY THIS RN. UP TO VOID X 1 WITH 1000 ML OUT AT THAT TIME, TOLERATED WELL. SATS MAINTAIN THROUGHOUT NOC ON ROOM AIR, PT DENIES DYSPNEA/SOB, LUNGS CLEAR. CONTINUES IN SINUS TACH, RATE LOW 100S, PRESSURES MAINTAINING STABLE OF THIS TIME. INSULIN GTT CONTINUES, TITRATED UP TO 4 UNITS PER HOUR, MOST RECENT LABS WERE DISCUSSED WITH DR GUAN, HOSPITALIST CRYSTAL CALIBRATOR, FLUIDS CHANGED TO D5 1/2NS @ 75 ML/HR FOR 1.5 LITERS PER ORDERS, WILL REASSESS LABS WITH NEXT CHEMISTRY SCHEDULED FOR 729. OTHERWISE NO ACUTE CHANGES THIS SHIFT.
--- NOTE | 2022-08-07 07:38 | NUR ---
ASSUMED CARE: DR WALTERS CALLED TO SEE IF PT IS APPROPRIATE TO TRANSITION OFF OF INSULIN GTT TO SC INSULIN. PT NORMALLY USES INSULIN PUMP AT HOME. DISCUSSED WITH PT AND SPOKE WITH DR WALTERS THAT PT FEELS COMFORTABLE WITH TRANSITIONING WITH LONG ACTING INSULIN AND HAS ALL THE SUPPLIES SHE NEEDS AT HOME FOR HER INSULIN PUMP. PT REQUESTING DC THIS AFTERNOON. TO PLACE NEW ORDERS.
[2022-08-07 08:24] LABS: Bun/Creatinine Ratio 15.5 (12.0-20.0); Calcium, Blood 7.6 mg/dL (8.5-10.1); Creatinine, Blood 0.97 mg/dL (0.40-1.00)
--- NOTE | 2022-08-07 10:31 | NUR ---
CALL TO DR WALTERS TO RELAY LATEST CBG. STATES SHE WILL ENTER DISCHARGE ORDERS.
[2022-08-07] MEDS ORDERED: CEPH500 PO (11:19)
[2022-08-07] MEDS ORDERED: IBUP400 PO (11:20)
--- NOTE | 2022-08-07 12:08 | NUR ---
DISCHARGE GIVEN TO PT REGARDING HOME MEDICATIONS AND ANTIBIOTICS. EDUCATED PT REGARDING TAKING MEDS WITH FOOD, IBUPROFEN FOR PAIN AND TO NOT EXCEED NSAIDS FOR MORE THAN 3 DAYS AND TO TAKE WITH FOOD. IVS DC'D WNL. PT DENIED FURTHER NEEDS OR CONCERNS AT THIS TIME. ESCORTED OUT VIA WHEEL CHAIR BY HOSPITAL STAFF.
== END 2022-08-07 12:11 | disposition home or self-care (01) ==
LOC: ER 12:56 → ICUW 12:57 → ICUE 18:29
PROVIDERS: Emergency Medicine; Nurse Practitioner Acute Care; Student in an Organized Health Care Education/Training Program; ADMIT Internal Medicine
DX: E10.10 Type 1 diabetes mellitus with ketoacidosis without coma (principal); F31.9 Bipolar disorder, unspecified; N39.0 Urinary tract infection, site not specified; K21.9 Gastro-esophageal reflux disease without esophagitis; J06.9 Acute upper respiratory infection, unspecified; E10.43 Type 1 diabetes mellitus with diabetic autonomic (poly)neuropathy; K31.84 Gastroparesis; K86.89 Other specified diseases of pancreas; F17.210 Nicotine dependence, cigarettes, uncomplicated; Z88.5 Allergy status to narcotic agent; Z88.2 Allergy status to sulfonamides; Z88.1 Allergy status to other antibiotic agents; Z79.899 Other long term (current) drug therapy; Z20.822 Contact with and (suspected) exposure to COVID-19; Z96.41 Presence of insulin pump (external) (internal); Z79.4 Long term (current) use of insulin
CPT/HCPCS: 0241U; 36415; 71045; 76705; 80048; 80053; 81001; 81025; 82010; 82803; 82947; 83735; 84100; 85025; 87077; 87086; 87186; 93005; 93010; 96361; 96365; 96366; 96375; 96376; 99285-25; A9270; C1751; C9113; G0378; J0696; J1815; J1885; J2550; J3010; J3480; J7030; J7042; J7120

== ENCOUNTER 2022-08-15 07:37 | Day surgery (SDC) | payer OTHER ==
[~2022-08-15 07:37] MED LIST changes: +BUSP10 PO; +IBUP400 PO; +LAMO100 PO; +MIRT15 PO; +OLAN10A PO; +Seroquel Xr50 MG PO
== END 2022-08-15 12:10 | disposition home or self-care (01) ==
LOC: ATC 07:37
DX: E83.30 Disorder of phosphorus metabolism, unspecified (principal); I12.9 Hypertensive chronic kidney disease with stage 1 through stage 4 chronic kidney disease, or unspecified chronic kidney disease; N18.2 Chronic kidney disease, stage 2 (mild); D63.1 Anemia in chronic kidney disease; N25.81 Secondary hyperparathyroidism of renal origin; E11.22 Type 2 diabetes mellitus with diabetic chronic kidney disease; N20.0 Calculus of kidney
CPT/HCPCS: 96365; 96366; J7060

== ENCOUNTER → 2022-10-10 | Outpatient (CLI) | payer OTHER ==
[~2022-10-10] MED LIST changes: +FUROSEMIDE20 MG PO; +PREGABALIN75 MG PO
== END | disposition home or self-care (01) ==
LOC: LAB SHORT 17:05 → LAB 17:05
DX: R11.0 Nausea (principal); R82.90 Unspecified abnormal findings in urine
CPT/HCPCS: 87086; 87147

== ENCOUNTER 2022-10-31 17:14 | Emergency (ER) | payer OTHER ==
[~2022-10-31] VITALS: Ht 165.1 cm; Wt 68.0 kg
[2022-10-31 18:21] LABS: BASOPHILS ABSOLUTE AUTO 0.02 K/mm3 (0.00-0.23); BASOPHILS PERCENT AUTO 0 % (0-2); EOSINOPHILS PERCENT AUTO 0 % (0-6); Hematocrit 32.6 % (33.0-51.0); Hemoglobin 10.8 g/dL (11.5-16.0); IMMATURE GRAN ABSOLUTE AUTO 0.02 K/mm3 (0.00-0.10); IMMATURE GRAN PERCENT AUTO 0 % (0-1); LYMPHOCYTES ABSOLUTE AUTO 0.36 K/mm3 (0.84-5.20); LYMPHOCYTES PERCENT AUTO 7 % (21-46); MONOCYTES ABSOLUTE AUTO 0.39 K/mm3 (0.16-1.47); MONOCYTES PERCENT AUTO 8 % (4-13); Mean Corpuscular HGB 28.9 pg (26.0-34.0); Mean Corpuscular HGB Conc 33.1 g/dL (31.5-36.5); Mean Corpuscular Volume 87 fL (80-100); Mean Platelet Volume 10.8 fL (9.1-12.4); NEUTROPHILS ABSOLUTE AUTO 4.34 K/mm3 (1.96-9.15); NEUTROPHILS PERCENT AUTO 85 % (41-73); Platelet Count 157 K/mm3 (150-400); RDW Coefficient Variation 12.4 % (11.7-14.2); Red Blood Cell Count 3.74 M/mm3 (3.80-5.20); White Blood Cell Count 5.13 K/mm3 (4.00-11.30)
[2022-10-31 18:33] LABS: Albumin, Blood 3.3 g/dL (3.4-5.0); Albumin/Globulin Ratio 0.8 (0.8-1.8); Bilirubin, Total 0.4 mg/dL (0.1-1.0); Bun/Creatinine Ratio 17.1 (12.0-20.0); Calcium, Blood 8.9 mg/dL (8.5-10.1); Globulin, Blood 3.9 g/dL (2.2-4.0); Potassium, Blood 4.1 mmol/L (3.5-5.5); Total Protein, Blood 7.2 g/dL (6.4-8.2)
[2022-10-31 19:37] LABS: Source, Urine Clean Catch
[2022-10-31 19:49] LABS: Appearance, Urine Cloudy (Clear); Bilirubin, Urine Neg (Neg); Blood, Urine Neg (Neg); Glucose Qualitative, Urine Neg (Neg); Ketones, Urine Neg (Neg); Leukocyte Esterase, Urine Neg (Neg); Nitrite, Urine Neg (Neg); Protein, Urine 1+ (Neg); Specific Gravity, Urine 1.015 (1.003-1.022); Urobilinogen, Urine NORM (Normal)
[2022-10-31 19:59] LABS: Color, Urine Pale Yellow (P-Yellow)
[2022-10-31 20:00] LABS: Amorphous Heavy (0-Heavy)
[2022-10-31 20:02] LABS: Bacteria Few /hpf; Red Blood Cells, Urine 0-2 /hpf (0-2); Squamous Epithelial Cells Few /hpf (Few); White Blood Cells, Urine 0-2 /hpf (0-5)
[2022-10-31] MEDS ORDERED: ATOM25 PO (20:08)
[2022-10-31] MEDS ORDERED: VRAYLAR1.5 MG PO (20:13)
[2022-10-31] MEDS ORDERED: [UNRECOGNIZED DRUG - OTHER] PO (20:14)
[2022-10-31] MEDS ORDERED: OLAN10 PO (20:14)
[2022-10-31] MEDS ORDERED: POTA8 PO (20:15)
[2022-10-31] MEDS ORDERED: LAMO100 PO (20:16)
[2022-10-31] MEDS ORDERED: GVOKE HYPO0.5 MG/0.2 (20:17)
[2022-10-31] MEDS ORDERED: BASAGLAR K100 UNIT/1 SC (20:18)
[2022-10-31 20:30] VITALS: BP 134/91
[2022-10-31] MEDS ORDERED: ACET500 PO (21:01)
== END 2022-10-31 21:13 | disposition home or self-care (01) ==
LOC: ER 17:14
PROVIDERS: Emergency Medicine
DX: R10.9 Unspecified abdominal pain (principal); K59.00 Constipation, unspecified; E10.65 Type 1 diabetes mellitus with hyperglycemia; E10.9 Type 1 diabetes mellitus without complications; F17.210 Nicotine dependence, cigarettes, uncomplicated; Z88.5 Allergy status to narcotic agent; Z88.2 Allergy status to sulfonamides; Z88.8 Allergy status to other drugs, medicaments and biological substances; Z79.4 Long term (current) use of insulin; Z79.899 Other long term (current) drug therapy
CPT/HCPCS: 74176; 80053; 81001; 81025; 82947; 85025; J0780; J1885; J7030

== ENCOUNTER 2022-12-15 21:14 | Emergency (ER) | payer OTHER ==
[~2022-12-15] VITALS: Ht 165.1 cm; Wt 74.4 kg
[~2022-12-15 21:14] MED LIST changes: +ACET500 PO; +ATOM25 PO; +GVOKE HYPO0.5 MG/0.2; +POTA8 PO; +VRAYLAR1.5 MG PO; +[UNRECOGNIZED DRUG - OTHER] PO
[2022-12-15 21:46] VITALS: BP 117/81
[2022-12-15 22:06] LABS: BASOPHILS ABSOLUTE AUTO 0.02 K/mm3 (0.00-0.23); BASOPHILS PERCENT AUTO 0 % (0-2); EOSINOPHILS PERCENT AUTO 0 % (0-6); Hematocrit 33.3 % (33.0-51.0); Hemoglobin 11.1 g/dL (11.5-16.0); IMMATURE GRAN ABSOLUTE AUTO 0.04 K/mm3 (0.00-0.10); IMMATURE GRAN PERCENT AUTO 1 % (0-1); LYMPHOCYTES ABSOLUTE AUTO 1.76 K/mm3 (0.84-5.20); LYMPHOCYTES PERCENT AUTO 26 % (21-46); MONOCYTES ABSOLUTE AUTO 0.67 K/mm3 (0.16-1.47); MONOCYTES PERCENT AUTO 10 % (4-13); Mean Corpuscular HGB 28.4 pg (26.0-34.0); Mean Corpuscular HGB Conc 33.3 g/dL (31.5-36.5); Mean Corpuscular Volume 85 fL (80-100); Mean Platelet Volume 11.2 fL (9.1-12.4); NEUTROPHILS ABSOLUTE AUTO 4.37 K/mm3 (1.96-9.15); NEUTROPHILS PERCENT AUTO 64 % (41-73); Platelet Count 190 K/mm3 (150-400); RDW Coefficient Variation 13.3 % (11.7-14.2); RDW Standard Deviation 40.9 fL (35.1-46.3); Red Blood Cell Count 3.91 M/mm3 (3.80-5.20); White Blood Cell Count 6.86 K/mm3 (4.00-11.30)
[2022-12-15 22:18] LABS: Albumin, Blood 3.1 g/dL (3.4-5.0); Albumin/Globulin Ratio 0.7 (0.8-1.8); Bilirubin, Total 0.5 mg/dL (0.1-1.0); Bun/Creatinine Ratio 12.5 (12.0-20.0); Calcium, Blood 9.1 mg/dL (8.5-10.1); Creatinine, Blood 1.2 mg/dL (0.40-1.00); Globulin, Blood 4.7 g/dL (2.2-4.0); Potassium, Blood 4.2 mmol/L (3.5-5.5); Total Protein, Blood 7.8 g/dL (6.4-8.2)
== END 2022-12-15 23:28 | disposition left against medical advice (07) ==
LOC: ER 21:14
PROVIDERS: Student in an Organized Health Care Education/Training Program
DX: M79.662 Pain in left lower leg (principal); Z53.21 Procedure and treatment not carried out due to patient leaving prior to being seen by health care provider; E10.9 Type 1 diabetes mellitus without complications; G47.00 Insomnia, unspecified; Z88.2 Allergy status to sulfonamides; Z88.5 Allergy status to narcotic agent; Z88.8 Allergy status to other drugs, medicaments and biological substances
CPT/HCPCS: 36415; 80053; 85025; 99283

== ENCOUNTER → 2023-01-18 | Outpatient (CLI) | payer OTHER ==
[2023-01-19 10:13] LABS: Candida species (DNA Probe) Negative (NEGATIVE); G. vaginalis (DNA Probe) Positive (NEGATIVE); T. vaginalis (DNA Probe) Negative (NEGATIVE)
[2023-01-20 02:08] LABS: CHLAMYDIA TRACHOMATIS, NAA Negative (Negative)
== END ==
LOC: LAB 16:00 → LAB SHORT 16:00
PROVIDERS: Nurse Practitioner
DX: E10.65 Type 1 diabetes mellitus with hyperglycemia (principal)
CPT/HCPCS: 87480; 87491; 87510; 87591; 87660

== ENCOUNTER 2023-01-26 20:44 | Observation (INO) | payer OTHER ==
[~2023-01-26] VITALS: Ht 165.1 cm; Wt 71.6 kg
[2023-01-26 21:46] LABS: Base Excess Venous -18.3 mmol/L; PCO2 Venous 28.7 mmHg (38-42)
[2023-01-26 21:47] LABS: pH Blood Venous 7.16 (7.34-7.37)
[2023-01-26 22:01] LABS: BASOPHILS ABSOLUTE AUTO 0.04 K/mm3 (0.00-0.23); BASOPHILS PERCENT AUTO 0 % (0-2); EOSINOPHILS PERCENT AUTO 0 % (0-6); Hemoglobin 12.5 g/dL (11.5-16.0); IMMATURE GRAN ABSOLUTE AUTO 0.09 K/mm3 (0.00-0.10); IMMATURE GRAN PERCENT AUTO 1 % (0-1); LYMPHOCYTES ABSOLUTE AUTO 1.08 K/mm3 (0.84-5.20); LYMPHOCYTES PERCENT AUTO 8 % (21-46); MONOCYTES ABSOLUTE AUTO 0.59 K/mm3 (0.16-1.47); MONOCYTES PERCENT AUTO 4 % (4-13); Mean Corpuscular HGB 28.6 pg (26.0-34.0); Mean Corpuscular HGB Conc 32.1 g/dL (31.5-36.5); Mean Corpuscular Volume 89 fL (80-100); Mean Platelet Volume 11.9 fL (9.1-12.4); NEUTROPHILS ABSOLUTE AUTO 11.95 K/mm3 (1.96-9.15); NEUTROPHILS PERCENT AUTO 87 % (41-73); Platelet Count 260 K/mm3 (150-400); RDW Coefficient Variation 12.4 % (11.7-14.2); RDW Standard Deviation 40.5 fL (35.1-46.3); Red Blood Cell Count 4.37 M/mm3 (3.80-5.20); White Blood Cell Count 13.75 K/mm3 (4.00-11.30)
[2023-01-26 22:23] LABS: Magnesium, Blood 2.5 mg/dL (1.6-2.4)
[2023-01-26 23:21] LABS: Albumin, Blood 3.8 g/dL (3.4-5.0); Albumin/Globulin Ratio 0.9 (0.8-1.8); Bilirubin, Total 0.9 mg/dL (0.1-1.0); Bun/Creatinine Ratio 23.3 (12.0-20.0); Calcium, Blood 9.1 mg/dL (8.5-10.1); Creatinine, Blood 1.63 mg/dL (0.40-1.00); Globulin, Blood 4.1 g/dL (2.2-4.0); Phosphorus, Blood 6.3 mg/dL (2.5-4.9); Total Protein, Blood 7.9 g/dL (6.4-8.2)
[2023-01-26 23:22] LABS: Beta-hydroxybutyrate 122.7 mg/dL (0.2-2.8); Potassium, Blood 6.5 mmol/L (3.5-5.5)
[2023-01-26 23:25] LABS: Calcium, Ionized (POC) 1.05 mmol/L (1.10-1.46); Chloride (POC) 89 mmol/L (98-108); Creatinine (POC) 1.9 mg/dL (0.6-1.0); Glucose (ISTAT POC) >700 mg/dL (70-99); Hemoglobin (POC) 12.2 g/dL (12.0-16.0); Potassium (POC) 6.6 mmol/L (3.5-5.5); Sodium (POC) 118 mmol/L (135-148); Total CO2 (POC) 12 mmol/L (21-32)
[2023-01-27] VITALS (21 sets, daily range): BP systolic 89–114; BP diastolic 52–81
[2023-01-27 01:35] LABS: Glucose, Blood 994 mg/dL (70-99)
[2023-01-27 02:45] LABS: Glucose, Blood 909 mg/dL (70-99)
[2023-01-27 03:55] LABS: Glucose, Blood 831 mg/dL (70-99)
[2023-01-27 04:24] LABS: Bun/Creatinine Ratio 22.6 (12.0-20.0); Calcium, Blood 7.5 mg/dL (8.5-10.1); Creatinine, Blood 1.95 mg/dL (0.40-1.00); Potassium, Blood 4.6 mmol/L (3.5-5.5)
[2023-01-27 05:24] LABS: Source, Urine Clean Catch
[2023-01-27 05:27] LABS: Appearance, Urine Hazy (Clear); Bilirubin, Urine Neg (Neg); Blood, Urine 4+ (Neg); Glucose Qualitative, Urine 4+ (Neg); Ketones, Urine 3+ (Neg); Leukocyte Esterase, Urine 2+ (Neg); Nitrite, Urine Neg (Neg); Protein, Urine Neg (Neg); Specific Gravity, Urine 1.015 (1.003-1.022); Urobilinogen, Urine NORM (Normal)
[2023-01-27 05:45] LABS: Glucose, Blood 693 mg/dL (70-99)
[2023-01-27 05:52] LABS: Color, Urine Pale Yellow (P-Yellow)
[2023-01-27 05:57] LABS: Bacteria Many /hpf; Squamous Epithelial Cells Many /hpf (Few); Yeast/Fungi Urine Mod /hpf
[2023-01-27 05:58] LABS: Red Blood Cells, Urine 0-2 /hpf (0-2)
[2023-01-27 05:59] LABS: Transitional Epithelial Cells Rare /hpf (0-Rare)
[2023-01-27 06:38] LABS: Glucose, Blood 547 mg/dL (70-99)
--- NOTE | 2023-01-27 08:00 | NUR ---
INITIAL ASSESSMENT PATIENT SOMNOLENT BUT AWAKENS QUICKLY TO VERBAL STIMULI. PATIENT ALERT AND ORIENTED X 4. FLAT AFFECT NOTED. PATIENT AFEBRILE. PATIENT STATES SHE HAS BEEN HAVING DISCOMFORT IN CALVES AND SHINS FOR OVER A MONTH NOW. PATIENT SATTING 90% AND GREATER ON RA. PATIENT IN ST, HR LOW 100S TO 1-TEENS. SBP 90S TO LOW 100S. TRACE EDEMA NOTED TO BLES. PATIENT DENIES NAUSEA. WNL. SKIN APPEARS WNL. INSULIN DRIP INFUSING AT 2 UNITS/ HOUR AND 1/2 NS WITH BICARB INFUSING AT 125 MLS/ HOUR. BED LOW, CALL LIGHT IN REACH.
--- NOTE | 2023-01-27 08:05 | NUR ---
DR. CANNON CALLED AND UPDATED ON PATIENT STATUS. INFORMED THAT ORDER FOR 2 L NS BOLUS SEEN. INFORMED THAT PATIENT REFUSING ANOTHER IV AND CURRENTLY HAS ONE IV IN WITH BOTH INSULIN AND 1/2 NS WITH BICARB INFUSING INTO IT. INFORMED THAT PATIENT IS WANTING TO GO HOME TONIGHT. INFORMED THAT BLOOD SUGAR DOWN TO 338 FROM 438 AND THAT INSULIN DRIP DECREASED FROM 4 TO 2 UNITS/ HOUR. INFORMED THAT PATIENT DENIES NAUSEA. INFORMED THAT PATIENT EDUCATED ON IMPORTANCE OF ANOTHER LINE IN FOR TREATMENT. DR. CANNON STATED OKAY TO STOP 1/2 NS WITH BICARB WHILE BOLUSES INFUSED AND THEN TO RESTART AFTER.
[2023-01-27 09:28] LABS: BASOPHILS ABSOLUTE AUTO 0.04 K/mm3 (0.00-0.23); BASOPHILS PERCENT AUTO 0 % (0-2); EOSINOPHILS ABSOLUTE AUTO 0.02 K/mm3 (0.00-0.68); EOSINOPHILS PERCENT AUTO 0 % (0-6); Hematocrit 30.1 % (33.0-51.0); Hemoglobin 10.6 g/dL (11.5-16.0); IMMATURE GRAN ABSOLUTE AUTO 0.09 K/mm3 (0.00-0.10); IMMATURE GRAN PERCENT AUTO 1 % (0-1); LYMPHOCYTES PERCENT AUTO 26 % (21-46); MONOCYTES ABSOLUTE AUTO 0.98 K/mm3 (0.16-1.47); MONOCYTES PERCENT AUTO 8 % (4-13); Mean Corpuscular HGB 28.7 pg (26.0-34.0); Mean Corpuscular HGB Conc 35.2 g/dL (31.5-36.5); Mean Corpuscular Volume 82 fL (80-100); Mean Platelet Volume 10.6 fL (9.1-12.4); NEUTROPHILS ABSOLUTE AUTO 8.01 K/mm3 (1.96-9.15); NEUTROPHILS PERCENT AUTO 65 % (41-73); Platelet Count 219 K/mm3 (150-400); RDW Coefficient Variation 12.4 % (11.7-14.2); RDW Standard Deviation 36.7 fL (35.1-46.3); Red Blood Cell Count 3.69 M/mm3 (3.80-5.20); White Blood Cell Count 12.34 K/mm3 (4.00-11.30)
[2023-01-27 10:11] LABS: Albumin, Blood 2.8 g/dL (3.4-5.0); Albumin/Globulin Ratio 0.9 (0.8-1.8); Bilirubin, Total 0.6 mg/dL (0.1-1.0); Calcium, Blood 7.6 mg/dL (8.5-10.1); Creatinine, Blood 1.39 mg/dL (0.40-1.00); Globulin, Blood 3.1 g/dL (2.2-4.0); Potassium, Blood 3.9 mmol/L (3.5-5.5)
[2023-01-27 10:12] LABS: Total Protein, Blood 5.9 g/dL (6.4-8.2)
--- NOTE | 2023-01-27 10:30 | NUR ---
DR. CANNON UPDATED ON PATIENT STATUS. INFORMED THAT PATIENT COMPLAINS OF DISCOMFORT IN SHINS AND CALVES FOR OVER A MONTH NOW AND STATES THAT SHE GETS BRUISES THERE WELL. DR. CANNON IN ROOM TO ASSESS LEGS. ORDERS RECEIVED TO TRANSITION FROM INSULIN DRIP TO LONG ACTING.
[2023-01-27] MEDS ORDERED: ADMELOG SO100 UNIT/2 SC (10:49)
[2023-01-27] MEDS ORDERED: BASAGLAR K100 UNIT/1 SC (10:52)
[2023-01-27] MEDS ORDERED: NORETH EE FE PO (10:57)
[2023-01-27] MEDS ORDERED: LYRICA PO (10:58)
[2023-01-27] MEDS ORDERED: QUET25 PO (10:59)
[2023-01-27] MEDS ORDERED: TIZA4 PO (11:00)
--- NOTE | 2023-01-27 12:00 | NUR ---
PATIENT AFEBRILE. HR IN THE LOW 100S. SBP IN THE LOW 100S. INSULIN DRIP DC'D. MED REC COMPLETED.
[2023-01-27 14:07] LABS: Bun/Creatinine Ratio 21.3 (12.0-20.0); Calcium, Blood 7.2 mg/dL (8.5-10.1); Creatinine, Blood 1.08 mg/dL (0.40-1.00)
--- NOTE | 2023-01-27 14:20 | NUR ---
SHIFT SUMMARY PATIENT SOMNOLENT THIS AM BUT MORE AWAKE THIS AFTERNOON. PATIENT REMAINED ALERT AND ORIENTED X 4. PATIENT REMAINED AFEBRILE. PATIENT REMAINED SATTING 90% AND GREATER ON RA. PATIENT REMAINED IN ST, HR LOW 100S TO 1-TEENS. SBP 80S TO 1-TEENS. PATIENT HAD NO COMPLAINTS OF NAUSEA. WNL. SKIN WNL; PATIENT FREQUENTLY REPOSITIONING SELF IN BED. PATIENT SBA BECAUSE OF LINES AND CORDS TO TOILET. PATIENT REFUSED BED BATH. PATIENT TRANSITIONED BEFORE NOON ONTO LONG ACTING INSULIN AND OFF OF INSULIN DRIP. PATIENT RECEIVED 2 L NS BOLUS THIS SHIFT. PATIENT HOME MED REC COMPLETED THIS SHIFT. BLOOD SUGARS DECREASED FROM 438 TO 218 THIS SHIFT. PATIENT CHANGED TO ADA DIET FROM NPO THIS SHIFT. PATIENT WANTING TO GO HOME THIS AM. PATIENT DID NOT WANT TO WAIT FOR LABS AND DISCHARGE ORDERS FROM DOCTOR BEING GOING HOME. PATIENT INSTRUCTED AND EDUCATED ON RISKS OF LEAVING AND BENEFITS OF STAYING. PATIENT LEFT AMA AT THIS TIME.
== END 2023-01-27 14:21 | disposition left against medical advice (07) ==
LOC: ER 20:44 → ICUE 20:45
PROVIDERS: Internal Medicine; Student in an Organized Health Care Education/Training Program; ADMIT Internal Medicine
DX: E10.10 Type 1 diabetes mellitus with ketoacidosis without coma (principal); N17.9 Acute kidney failure, unspecified; E86.0 Dehydration; E87.5 Hyperkalemia; K21.9 Gastro-esophageal reflux disease without esophagitis; Z88.2 Allergy status to sulfonamides; Z88.5 Allergy status to narcotic agent; Z88.8 Allergy status to other drugs, medicaments and biological substances; Z79.4 Long term (current) use of insulin; Z79.899 Other long term (current) drug therapy
CPT/HCPCS: 36415; 71045; 80047; 80048; 80053; 81001; 82010; 82803; 82947; 83735; 84100; 85014; 85025; 87086; 93005; 93010; 96361; 96374; 96375; 96376; 99285-25; A9270; G0378; J1790; J1815; J2765; J3010; J7030

== ENCOUNTER 2023-04-25 11:56 | Emergency (ER) | payer OTHER ==
[~2023-04-25] VITALS: Ht 167.6 cm; Wt 72.6 kg
[~2023-04-25 11:56] MED LIST changes: +ADMELOG SO100 UNIT/2 SC; +LYRICA PO; +QUET25 PO; +TIZA4 PO
[2023-04-25 12:33] LABS: BASOPHILS ABSOLUTE AUTO 0.04 K/mm3 (0.00-0.23); BASOPHILS PERCENT AUTO 1 % (0-2); EOSINOPHILS ABSOLUTE AUTO 0.01 K/mm3 (0.00-0.68); EOSINOPHILS PERCENT AUTO 0 % (0-6); Hematocrit 36.2 % (33.0-51.0); Hemoglobin 11.9 g/dL (11.5-16.0); IMMATURE GRAN ABSOLUTE AUTO 0.02 K/mm3 (0.00-0.10); IMMATURE GRAN PERCENT AUTO 0 % (0-1); LYMPHOCYTES ABSOLUTE AUTO 2.88 K/mm3 (0.84-5.20); LYMPHOCYTES PERCENT AUTO 36 % (21-46); MONOCYTES ABSOLUTE AUTO 0.44 K/mm3 (0.16-1.47); MONOCYTES PERCENT AUTO 6 % (4-13); Mean Corpuscular HGB Conc 32.9 g/dL (31.5-36.5); Mean Corpuscular Volume 88 fL (80-100); Mean Platelet Volume 10.3 fL (9.1-12.4); NEUTROPHILS ABSOLUTE AUTO 4.52 K/mm3 (1.96-9.15); NEUTROPHILS PERCENT AUTO 57 % (41-73); Platelet Count 204 K/mm3 (150-400); RDW Coefficient Variation 12.5 % (11.7-14.2); RDW Standard Deviation 40.7 fL (35.1-46.3); White Blood Cell Count 7.91 K/mm3 (4.00-11.30)
[2023-04-25 12:51] LABS: Source, Urine Clean Catch
[2023-04-25 12:59] LABS: Appearance, Urine Cloudy (Clear); Bilirubin, Urine Neg (Neg); Blood, Urine 4+ (Neg); Glucose Qualitative, Urine 4+ (Neg); Ketones, Urine 1+ (Neg); Leukocyte Esterase, Urine 3+ (Neg); Nitrite, Urine Neg (Neg); Protein, Urine 2+ (Neg); Specific Gravity, Urine 1.015 (1.003-1.022); Urobilinogen, Urine NORM (Normal)
[2023-04-25] MEDS ORDERED: NORT10 (13:01)
[2023-04-25] MEDS ORDERED: CYCL10 PO (13:04)
[2023-04-25 13:05] LABS: Albumin, Blood 3.3 g/dL (3.4-5.0); Albumin/Globulin Ratio 0.8 (0.8-1.8); Bilirubin, Total 0.5 mg/dL (0.1-1.0); Bun/Creatinine Ratio 13.5 (12.0-20.0); Creatinine, Blood 1.26 mg/dL (0.40-1.00); Potassium, Blood 3.6 mmol/L (3.5-5.5); Total Protein, Blood 7.3 g/dL (6.4-8.2)
[2023-04-25 13:10] LABS: Color, Urine Pale Yellow (P-Yellow)
[2023-04-25 13:14] LABS: Bacteria Many /hpf; Squamous Epithelial Cells Mod /hpf (Few); White Blood Cells, Urine TNTC /hpf (0-5)
[2023-04-25] MEDS ORDERED: PROM12.5S PR (14:07)
[2023-04-25] MEDS ORDERED: CEFP200 PO (14:07)
[2023-04-25 15:15] VITALS: BP 132/104
== END 2023-04-25 15:31 | disposition home or self-care (01) ==
LOC: ER 11:56
PROVIDERS: Student in an Organized Health Care Education/Training Program
DX: N39.0 Urinary tract infection, site not specified (principal); G89.18 Other acute postprocedural pain; R10.84 Generalized abdominal pain; R11.2 Nausea with vomiting, unspecified; E10.9 Type 1 diabetes mellitus without complications; K86.89 Other specified diseases of pancreas; Z88.2 Allergy status to sulfonamides; Z88.5 Allergy status to narcotic agent; Z88.6 Allergy status to analgesic agent; Z88.8 Allergy status to other drugs, medicaments and biological substances; Z79.4 Long term (current) use of insulin; Z79.899 Other long term (current) drug therapy; Z87.891 Personal history of nicotine dependence; Z98.890 Other specified postprocedural states
CPT/HCPCS: 74177; 80053; 81001; 81025; 83690; 85025; 87077; 87086; 87186; 96365; 96375; 96376; 99284-25; A9270; J0696; J3010; Q9967

== ENCOUNTER → 2023-05-30 | Outpatient (CLI) | payer OTHER ==
[~2023-05-30] MED LIST changes: +NORT10; +PROM12.5S PR
[2023-05-30 15:42] LABS: Candida species (DNA Probe) Negative (NEGATIVE); G. vaginalis (DNA Probe) Positive (NEGATIVE); T. vaginalis (DNA Probe) Negative (NEGATIVE)
== END ==
LOC: LAB SHORT 12:39 → LAB 12:39
PROVIDERS: Family Medicine
DX: N39.0 Urinary tract infection, site not specified (principal)
CPT/HCPCS: 87077; 87086; 87186; 87480; 87510; 87660

== ENCOUNTER → 2023-06-12 | Outpatient (CLI) | payer OTHER ==
[2023-06-13 12:15] LABS: Candida species (DNA Probe) Negative (NEGATIVE); G. vaginalis (DNA Probe) Positive (NEGATIVE); T. vaginalis (DNA Probe) Negative (NEGATIVE)
== END ==
LOC: LAB SHORT 16:44 → LAB 16:44
PROVIDERS: Family Medicine
DX: N76.0 Acute vaginitis (principal)
CPT/HCPCS: 87480; 87510; 87660

== ENCOUNTER → 2023-06-26 | Outpatient (CLI) | payer OTHER | LOC: LAB SHORT 19:10 → LAB 19:10 | DX: M35.9 Systemic involvement of connective tissue, unspecified (principal) | CPT/HCPCS: 86140; 86430 ==

== ENCOUNTER → 2023-07-17 | Outpatient (CLI) | payer OTHER | END | disposition home or self-care (01) | LOC: LAB 18:58 → LAB SHORT 18:58 | DX: L98.499 Non-pressure chronic ulcer of skin of other sites with unspecified severity (principal) | CPT/HCPCS: 87070; 87205 ==

== ENCOUNTER → 2023-09-20 | Outpatient (CLI) | payer OTHER ==
[2023-09-20 20:27] LABS: Bacterial Vaginosis PCR Negative (NEGATIVE)
[2023-09-20 20:54] LABS: Candida Group, PCR DETECTED (NOT DETECT); Candida glabrata-krusei, PCR DETECTED (NOT DETECT)
[2023-09-27 22:11] LABS: HPV HIGH RISK BY TMA Detected; HPV SOURCE Cervical
[2023-09-28 21:07] LABS: HPV GENOTYPE 16 BY TMA Not Detected; HPV GENOTYPE 18/45 BY TMA Not Detected; HPVG SOURCE Cervical
== END | disposition home or self-care (01) ==
LOC: LAB 17:59 → LAB SHORT 17:59
PROVIDERS: Family Medicine
DX: Z01.419 Encounter for gynecological examination (general) (routine) without abnormal findings (principal); N76.0 Acute vaginitis
CPT/HCPCS: 87481; 87624; 87625; 87661; 87801; G0123

== ENCOUNTER → 2023-11-15 | Outpatient (CLI) | payer OTHER | LOC: LAB 07:50 → LAB SHORT 07:50 | DX: N87.1 Moderate cervical dysplasia (principal) | CPT/HCPCS: 88305; 88342 ==

== ENCOUNTER → 2024-01-25 | Outpatient (CLI) | payer OTHER ==
[~2024-01-25] MED LIST changes: +BASAGLAR K100 UNIT/3; +DEXCOM G7 SENS1 EACH; +DULO60; +FURO20; +INSULIN LI100 UNIT/5; +LACT; +METF500; +METO5A; +MUPIROCIN15 GM; +Nicoderm Cq1 EACH; +OMEP20ER; +PALI3TAB; +POTA8; +ROPI1; +TIZA4; +[UNRECOGNIZED DRUG - OTHER]
[2024-01-25 19:56] LABS: Candida glabrata-krusei, PCR NOT DETECTED (NOT DETECT)
[2024-01-25 19:57] LABS: Bacterial Vaginosis PCR Positive (NEGATIVE); Candida Group, PCR DETECTED (NOT DETECT)
== END ==
LOC: LAB SHORT 13:51 → LAB 13:51
PROVIDERS: Obstetrics & Gynecology
DX: N89.8 Other specified noninflammatory disorders of vagina (principal)
CPT/HCPCS: 87481; 87661; 87801

== ENCOUNTER → 2024-02-06 | Outpatient (CLI) | payer OTHER | END | disposition home or self-care (01) | LOC: LAB 19:19 → LAB SHORT 19:19 | DX: N39.0 Urinary tract infection, site not specified (principal) | CPT/HCPCS: 87077; 87086; 87186 ==

== ENCOUNTER → 2024-03-05 | Outpatient (CLI) | payer OTHER ==
[2024-03-05 17:31] LABS: Creatinine, Urine Random 73.3 mg/dL (27.00-270.00); Microalb/Creat Ratio UR, Rand 48.977 mg/g (0.000-30.000); Microalbumin, Random Urine 35.9 mg/L (0.000-20.000)
== END | disposition home or self-care (01) ==
LOC: LAB SHORT 14:39 → LAB 14:39
PROVIDERS: Family Medicine
DX: R82.90 Unspecified abnormal findings in urine (principal); Z79.899 Other long term (current) drug therapy
CPT/HCPCS: 82043; 82570; 87077; 87086; 87186

== ENCOUNTER → 2024-04-17 | Outpatient (CLI) | payer OTHER | LOC: LAB SHORT 14:15 → LAB 14:15 | DX: N39.0 Urinary tract infection, site not specified (principal) | CPT/HCPCS: 87077; 87086; 87186 ==

== ENCOUNTER 2024-06-26 13:52 | Inpatient (IN) | payer OTHER ==
[~2024-06-26] VITALS: Ht 162.6 cm; Wt 59.7 kg
[2024-06-26] VITALS (26 sets, daily range): BP systolic 86–126; BP diastolic 52–82
[~2024-06-26 13:52] MED LIST changes: -LACT; +LACT PO; -METF500; +METF500 PO; -METO5A; -MUPIROCIN15 GM; -OMEP20ER; -POTA8; -ROPI1; +ROPI1 PO
[2024-06-26] MEDS ORDERED: NS 1,000 ML IV SCH ×2 (14:15→16:10)
[2024-06-26 14:16] LABS: Bicarbonate Venous 13.9 mmol/L (24.0-30.0); PCO2 Venous 27.1 mmHg (38-42)
[2024-06-26 14:17] LABS: pH Blood Venous 7.26 (7.34-7.37)
[2024-06-26] MEDS ORDERED: Prochlorperazine Edisylate 10 mg Vial IV ONE (14:25)
[2024-06-26 14:34] LABS: BASOPHILS ABSOLUTE AUTO 0.05 K/mm3 (0.00-0.23); BASOPHILS PERCENT AUTO 1 % (0-2); EOSINOPHILS ABSOLUTE AUTO 0.02 K/mm3 (0.00-0.68); EOSINOPHILS PERCENT AUTO 0 % (0-6); Hematocrit 30.3 % (33.0-51.0); Hemoglobin 9.8 g/dL (11.5-16.0); IMMATURE GRAN ABSOLUTE AUTO 0.12 K/mm3 (0.00-0.10); IMMATURE GRAN PERCENT AUTO 1 % (0-1); LYMPHOCYTES ABSOLUTE AUTO 0.87 K/mm3 (0.84-5.20); LYMPHOCYTES PERCENT AUTO 8 % (21-46); MONOCYTES ABSOLUTE AUTO 0.83 K/mm3 (0.16-1.47); MONOCYTES PERCENT AUTO 8 % (4-13); Mean Corpuscular HGB 28.8 pg (26.0-34.0); Mean Corpuscular HGB Conc 32.3 g/dL (31.5-36.5); Mean Corpuscular Volume 89 fL (80-100); Mean Platelet Volume 12.3 fL (9.1-12.4); NEUTROPHILS ABSOLUTE AUTO 8.85 K/mm3 (1.96-9.15); NEUTROPHILS PERCENT AUTO 82 % (41-73); Platelet Count 155 K/mm3 (150-400); RDW Coefficient Variation 12.5 % (11.7-14.2); RDW Standard Deviation 40.7 fL (35.1-46.3); White Blood Cell Count 10.74 K/mm3 (4.00-11.30)
[2024-06-26] MEDS ORDERED: Insulin Human Regular 100 UNIT in NS 100 ML IV SCH (14:50)
[2024-06-26] MEDS ORDERED: Lactated Ringer's 1,000 ML IV SCH ×2 (14:50→17:25)
[2024-06-26 15:16] LABS: Albumin, Blood 3.1 g/dL (3.4-5.0); Beta-hydroxybutyrate 62.8 mg/dL (0.2-2.8); Bilirubin, Total 1.1 mg/dL (0.1-1.0); Bun/Creatinine Ratio 20.9 (12.0-20.0); Calcium, Blood 8.7 mg/dL (8.5-10.1); Creatinine, Blood 1.96 mg/dL (0.40-1.00); Globulin, Blood 3.1 g/dL (2.2-4.0); Potassium, Blood 6.4 mmol/L (3.5-5.5); Total Protein, Blood 6.2 g/dL (6.4-8.2)
[2024-06-26] MEDS ORDERED: NS 1,000 ML IV ONE ×3 (15:32→16:10)
[2024-06-26] MEDS ORDERED: FLU VACC TS2024-25(6MOS UP)/PF 45 MCG/0.5 ML SYRINGE IM PRN (16:00)
[2024-06-26] MEDS ORDERED: Bisacodyl 10 MG Supp PR PRN (16:00)
[2024-06-26] MEDS ORDERED: Magnesium Hydroxide Conc 10 ML UDC PO PRN (16:00)
[2024-06-26] MEDS ORDERED: Dextrose 50% 50 ML Syringe IV PRN (16:05)
[2024-06-26] MEDS ORDERED: Insulin Human Regular 100 UNIT/ML 10ML Vial IV ONE (16:05)
[2024-06-26] MEDS ORDERED: Dextrose 50% 50 ML Vial IV PRN (16:15)
[2024-06-26] MEDS ORDERED: FentaNYL Citrate 50 MCG/ML 2 ML Injection IV ONE (16:20)
[2024-06-26 16:21] LABS: Base Excess Venous -19.1 mmol/L; PCO2 Venous 36.4 mmHg (38-42)
[2024-06-26 16:22] LABS: pH Blood Venous 7.08 (7.34-7.37)
[2024-06-26 16:48] LABS: Bun/Creatinine Ratio 20.8 (12.0-20.0); Calcium, Blood 7.8 mg/dL (8.5-10.1); Creatinine, Blood 2.07 mg/dL (0.40-1.00); Potassium, Blood 5.9 mmol/L (3.5-5.5)
[2024-06-26] MEDS ORDERED: Insulin Regular 100 Unit/ML 1ML Dose IV ONE (17:00)
[2024-06-26 17:46] LABS: Source, Urine Foley catheter
[2024-06-26] MEDS ORDERED: Metoclopramide HCl 5MG / ML 2ML Vial IV SCH (18:00)
[2024-06-26 18:05] LABS: Bilirubin, Urine Neg (Neg); Blood, Urine 1+ (Neg); Glucose Qualitative, Urine 4+ (Neg); Ketones, Urine 1+ (Neg); Leukocyte Esterase, Urine Neg (Neg); Nitrite, Urine Neg (Neg); Protein, Urine Neg (Neg); Urobilinogen, Urine NORM (Normal)
[2024-06-26 18:24] LABS: Bun/Creatinine Ratio 18.6 (12.0-20.0); Calcium, Blood 7.1 mg/dL (8.5-10.1); Creatinine, Blood 2.04 mg/dL (0.40-1.00); Glucose, Blood 1188 mg/dL (70-99); Potassium, Blood 4.5 mmol/L (3.5-5.5)
[2024-06-26 18:25] LABS: Color, Urine Pale Yellow (P-Yellow)
[2024-06-26 18:26] LABS: Appearance, Urine Hazy (Clear)
[2024-06-26 18:27] LABS: Bacteria Many /hpf; Red Blood Cells, Urine 0-2 /hpf (0-2); Squamous Epithelial Cells Mod /hpf (Few); Yeast/Fungi Urine Few /hpf
--- NOTE | 2024-06-26 18:29 | NUR ---
ADMIT PT ARRIVED TO ICU 15 VIA ER BED AT 1800. PT IS DROWSEY UPON ARRIVAL, BUT IS EASILY AROUSABLE TO VERBAL STIMULI. PT ANSWERS MOST QUESTIONS APPROPRIATELY. PT FORGETFUL AT TIMES. PT QUICKLY BACK TO RESTING QUIETLY WHEN UNDISTURBED. VITAL SIGNS STABLE WITH PT ON 5 MCG/MIN LEVOPHED UPON ARRIVAL. INSULIN INFUSING AT 10.5 UNITS/HR UPON ARRIVAL LEFT SC CENTRAL LINE IN PLACE, OOZING FROM DRESSING UPON ARRIVAL. MANUAL PRESSURE HELD AND DRESSING CHANGED AT THIS TIME. MONTERROSO TEMP PROBE IN PLACE WITH YELLOW URINE OUTPUT NOTED. PT ON 2L O2 NC. LS CLEAR T/O. SKIN C/D/I, VERIFIED WITH ELI MAYA. WILL CONTINUE TO MONITOR AND REPORT OFF TO ONCOMING RN.
[2024-06-26] MEDS ORDERED: NS 500 ML IV SCH (19:20)
[2024-06-26 19:36] LABS: Glucose, Blood 1038 mg/dL (70-99)
--- NOTE | 2024-06-26 20:00 | NUR ---
ASSUMED CARE OF PT AT 1900. REPORT RECIEVED AT BEDSIDE. PT PRESENTS IN BED. VERY SLEEPY. DOES AWAKEN UPON GREETING. VERIFIED INSULIN AND LEVOPHED WITH OFFGOING RN. SAFESET SETUP DONE ON CENTRAL LINE FOR LAB DRAWS. TEACHING DONE WITH PT ON INSULIN, OXYGEN, AND SAFESET. WILL REVIEW CHART AND PLAN OF CARE FOR THIS PT.
[2024-06-26 20:01] LABS: Base Excess Venous -12.3 mmol/L; Bicarbonate Venous 15.3 mmol/L (24.0-30.0); PCO2 Venous 40.8 mmHg (38-42)
[2024-06-26 20:34] LABS: Magnesium, Blood 1.7 mg/dL (1.6-2.4)
[2024-06-26 20:41] LABS: Bun/Creatinine Ratio 18.5 (12.0-20.0); Calcium, Blood 7.6 mg/dL (8.5-10.1); Creatinine, Blood 1.95 mg/dL (0.40-1.00); Potassium, Blood 4.4 mmol/L (3.5-5.5)
[2024-06-26] MEDS ORDERED: Magnesium Sulf 2 GM/Water 50ML 50 ML IV ONE (20:50)
[2024-06-26] MEDS ORDERED: Potassium Chl 20MEQ/Water100ML 100 ML IV ONE (20:50)
[2024-06-26 21:10] LABS: Glucose, Blood 830 mg/dL (70-99)
[2024-06-26] MEDS ORDERED: Azithromycin 500 MG in NS 250 ML IV SCH (22:25)
[2024-06-26] MEDS ORDERED: CefTRIAXone Sodium 1,000 MG in NS 100 ML IV SCH (22:25)
[2024-06-26 22:36] LABS: Glucose, Blood 738 mg/dL (70-99)
[2024-06-26 23:21] LABS: Glucose, Blood 650 mg/dL (70-99)
[2024-06-26 23:22] LABS: Influenza A, PCR NEGATIVE (NEGATIVE); Influenza B, PCR NEGATIVE (NEGATIVE); Resp Syncytial Virus, PCR NEGATIVE (NEGATIVE); SARS-Cov-2 (COVID-19) PCR, MMC NEGATIVE (NEGATIVE)
[2024-06-26] MEDS ORDERED: NS 250 ML IV PRN (23:30)
[2024-06-27] VITALS (69 sets, daily range): BP systolic 77–135; BP diastolic 52–92
[2024-06-27 01:55] LABS: Bun/Creatinine Ratio 19.9 (12.0-20.0); Creatinine, Blood 1.76 mg/dL (0.40-1.00); Potassium, Blood 4.4 mmol/L (3.5-5.5)
[2024-06-27 04:28] LABS: BASOPHILS ABSOLUTE AUTO 0.07 K/mm3 (0.00-0.23); BASOPHILS PERCENT AUTO 1 % (0-2); EOSINOPHILS ABSOLUTE AUTO 0.22 K/mm3 (0.00-0.68); EOSINOPHILS PERCENT AUTO 2 % (0-6); Hematocrit 24.3 % (33.0-51.0); Hemoglobin 8.9 g/dL (11.5-16.0); IMMATURE GRAN ABSOLUTE AUTO 0.06 K/mm3 (0.00-0.10); IMMATURE GRAN PERCENT AUTO 0 % (0-1); LYMPHOCYTES ABSOLUTE AUTO 3.91 K/mm3 (0.84-5.20); LYMPHOCYTES PERCENT AUTO 28 % (21-46); MONOCYTES ABSOLUTE AUTO 1.13 K/mm3 (0.16-1.47); MONOCYTES PERCENT AUTO 8 % (4-13); Mean Corpuscular HGB 29.2 pg (26.0-34.0); Mean Corpuscular HGB Conc 36.6 g/dL (31.5-36.5); Mean Platelet Volume 10.8 fL (9.1-12.4); NEUTROPHILS ABSOLUTE AUTO 8.79 K/mm3 (1.96-9.15); NEUTROPHILS PERCENT AUTO 62 % (41-73); Platelet Count 202 K/mm3 (150-400); RDW Coefficient Variation 12.3 % (11.7-14.2); RDW Standard Deviation 35.6 fL (35.1-46.3); Red Blood Cell Count 3.05 M/mm3 (3.80-5.20); White Blood Cell Count 14.18 K/mm3 (4.00-11.30)
[2024-06-27 04:29] LABS: Mean Corpuscular Volume 80 fL (80-100)
[2024-06-27 04:29] LABS: Base Excess Venous -3.2 mmol/L; Bicarbonate Venous 21.6 mmol/L (24.0-30.0); pH Blood Venous 7.32 (7.34-7.37)
[2024-06-27] MEDS ORDERED: FentaNYL Citrate 50 MCG/ML 2 ML Injection IV ONE (04:40)
[2024-06-27 04:54] LABS: Magnesium, Blood 2.1 mg/dL (1.6-2.4)
[2024-06-27 04:55] LABS: Albumin, Blood 2.5 g/dL (3.4-5.0); Albumin/Globulin Ratio 0.9 (0.8-1.8); Bilirubin, Total 0.3 mg/dL (0.1-1.0); Bun/Creatinine Ratio 19.3 (12.0-20.0); Calcium, Blood 7.9 mg/dL (8.5-10.1); Creatinine, Blood 1.45 mg/dL (0.40-1.00); Globulin, Blood 2.8 g/dL (2.2-4.0); Potassium, Blood 3.8 mmol/L (3.5-5.5); Total Protein, Blood 5.3 g/dL (6.4-8.2)
[2024-06-27] MEDS ORDERED: Potassium Chl 20MEQ/Water100ML 100 ML IV SCH (05:40)
[2024-06-27] MEDS ORDERED: D5W-1/2NS 1,000 ML IV SCH (05:40)
[2024-06-27] MEDS ORDERED: Potassium Chloride 20 MEQ in NS 90 ML IV SCH (06:05)
[2024-06-27 08:55] LABS: Bun/Creatinine Ratio 18.9 (12.0-20.0); Creatinine, Blood 1.32 mg/dL (0.40-1.00); Potassium, Blood 3.4 mmol/L (3.5-5.5)
[2024-06-27] MEDS ORDERED: Enoxaparin 40 MG/0.4 ML SYR SC SCH (09:00)
[2024-06-27] MEDS ORDERED: Insulin Glargine-Yfgn 100 Unit/mL 3 ML SYR SC ONE (09:55)
[2024-06-27] MEDS ORDERED: Insulin Human Lispro 100 Units/ML 3ML Syringe SC SCH (11:30)
[2024-06-27] MEDS ORDERED: Acetaminophen 325 MG TABLET PO PRN (11:55)
[2024-06-27] MEDS ORDERED: HYDPAM25 PO (12:28)
[2024-06-27] MEDS ORDERED: CYCL10 PO (12:31)
[2024-06-27] MEDS ORDERED: MUPIROCIN15 GM (12:32)
[2024-06-27] MEDS ORDERED: PREG75 PO (12:37)
[2024-06-27] MEDS ORDERED: NAPR220 PO (12:40)
[2024-06-27] MEDS ORDERED: LATUDA60 M1 PO (12:40)
[2024-06-27] MEDS ORDERED: Naltrexone HCl50 MG PO (12:41)
[2024-06-27] MEDS ORDERED: ATOR20 PO (12:43)
[2024-06-27] MEDS ORDERED: BUME1 PO (12:44)
[2024-06-27] MEDS ORDERED: ESZO1 PO (12:45)
[2024-06-27 12:47] LABS: Bun/Creatinine Ratio 16.5 (12.0-20.0); Calcium, Blood 8.1 mg/dL (8.5-10.1); Creatinine, Blood 1.15 mg/dL (0.40-1.00)
[2024-06-27] MEDS ORDERED: THERA-D2000 UNIT PO (12:47)
[2024-06-27] MEDS ORDERED: Midodrine 5 MG Tab PO SCH (13:00)
[2024-06-27] MEDS ORDERED: HydrOXYzine Pamoate 25 MG Cap PO PRN (13:40)
[2024-06-27] MEDS ORDERED: Cyclobenzaprine HCl 10 MG Tab PO PRN (13:40)
[2024-06-27] MEDS ORDERED: Pregabalin 75 MG Cap PO SCH (14:00)
[2024-06-27 16:31] LABS: Bun/Creatinine Ratio 15.6 (12.0-20.0); Calcium, Blood 8.2 mg/dL (8.5-10.1); Creatinine, Blood 1.22 mg/dL (0.40-1.00); Potassium, Blood 4.6 mmol/L (3.5-5.5)
--- NOTE | 2024-06-27 17:38 | NUR ---
SHIFT SUMMARY PT HAS REMAINED ALERT AND ORIENTED WHEN AWAKE THIS SHIFT. PT SLEEPING OFF AND ON THROUGHOUT THE DAY. PT HAS COMPLAINED OF PAIN/TIGHTNESS TO SHOULDERS AND BACK THIS SHIFT. PT HOME MEDS RESTARTED AND PT REPORTS GOOD RELIEF. INSULIN GTT TITRATED OFF AND PT STARTED ON SC INSULIN. PT TAKING PO INTAKE WELL. CENTRAL LINE TO [facility] C/D/I, SALINE LOCKED AT THIS TIME. PIV'S SALINE LOCKED. MONTERROSO TEMP PROBE REMAINS IN PLACE WITH CLEAR YELLOW URINE OUTPUT NOTED. VITAL SIGNS STABLE THIS AFTERNOON. LEVOPHED TITRATED OFF THIS SHIFT. PT ON ROOM AIR. PT SPOUSE AT BEDSIDE THIS AFTERNOON. WILL CONTINUE TO MONITOR AND REPORT OFF TO ONCOMING RN.
--- NOTE | 2024-06-27 20:10 | NUR ---
ASSUMED CARE OF PT AT 1900. REPORT RECEIVED. PT PRESENTS IN BED. ALERT AND ORIENTED. HAVE RECEIVED ORDER FOR STATUS CHANGE OF PT TO MEDICAL FLOOR NO TELEMETRY. PT REQUESTS AND IS PROVIDED WITH HEATING PAD. WILL REVIEW CHART AND PLAN OF CARE FOR THIS PT.
[2024-06-27] MEDS ORDERED: Insulin Glargine-Yfgn 100 Unit/mL 3 ML SYR SC SCH (21:00)
--- NOTE | 2024-06-27 22:00 | NUR ---
PT REPORT GIVEN TO RECEIVING RN FOR ROOM 301. PT TRANSFERRED AT 2145 THIS EVENING PER W/C. PT ALERT AND ORIENTED. NO COMPLAINTS VOICE. ACCEPTING OF TRANSFER TO MEDICAL FLOOR. PT ABLE TO AMBULATE TO W/C AFTER USING COMMODE.
[2024-06-28] MEDS ORDERED: Promethazine HCl 25 MG Tab PO PRN (00:50)
[2024-06-28] MEDS ORDERED: Misc. Tablet PO SCH ×2 (02:41→02:46)
[2024-06-28] MEDS ORDERED: LamoTRIgine 100 MG Tab PO SCH (03:00)
[2024-06-28 03:28] VITALS: BP 130/82
[2024-06-28 04:40] LABS: Hematocrit 25.3 % (33.0-51.0); Hemoglobin 9.1 g/dL (11.5-16.0); Mean Corpuscular HGB 29.5 pg (26.0-34.0); Mean Corpuscular Volume 82 fL (80-100); Mean Platelet Volume 11.4 fL (9.1-12.4); Platelet Count 166 K/mm3 (150-400); RDW Coefficient Variation 13.3 % (11.7-14.2); Red Blood Cell Count 3.08 M/mm3 (3.80-5.20); White Blood Cell Count 10.07 K/mm3 (4.00-11.30)
--- NOTE | 2024-06-28 04:56 | NUR ---
SHIFT SUMMARY PT TRANSFERED FROM ICU. ORIENTED TO ROOM AND QUESTIONS ANSWERED. NO C/O PAIN. IV ABX GIVEN. PT REPORTED ONE TIME EPISODE OF DIARRHEA AND STATED ABX MEDICATIONS WERE UPSETTING HER STOMACH. NOTIFIED AND REQUEST MADE TO ADD PROBIOTIC TO EMAR. 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 THIS NURSE SAT WITH PT FOR A TIME AND GAVE ANXITY MEDS. OFFERED TO HAVE THERAPY DOG OR SÁNCHEZ VISIT, AND PT WOULD LIKE TO SEE THERAPY DOG. VSS. BED IN LOWEST POSITION AND CALL LIGHT IN REACH.
[2024-06-28 05:03] LABS: Bun/Creatinine Ratio 15.2 (12.0-20.0); Creatinine, Blood 0.92 mg/dL (0.40-1.00)
[2024-06-28 07:24] VITALS: BP 102/62
--- NOTE | 2024-06-28 07:55 | NUR ---
PATIENT'S BLOOD SUGAR IS 219 THIS MORNING. PATIENT'S GOAL WOULD TO BE TO GET BACK ON HER INSULIN PUMP AND DISCHARGED. CALL MADE TO DR. PEREZ AND EXPLAINED THE GOAL OF CARE. DR. PEREZ AGREEABLE AND PLANS ON DISCHARGING PATIENT HOPEFULLY BEFORE LUNCH TODAY. WILL NOT BE GIVING THE PATIENT LONG ACTING INSULIN DUE TO THIS INTERFERRING WITH STARTING THE PATIENT BACK ON HER INSULIN PUMP; DR. PEREZ AGREEABLE. PATIENT NOTIFIED AND IS CALLING HER TO BRING HER INSULIN PUMP AND SUPPLIES IN.
--- NOTE | 2024-06-28 08:17 | NUR ---
PATIENT EXPRESSES THAT SHE WOULD LIKE TO LEAVE AMA; PATIENT EDUCATED ON THE PLAN OF CARE PRIOR TO DISCHARGE WHICH WAS PLANNED FOR EARLY THIS AFTERNOON ONCE SHE GOT ESTABLISHED ON HER PUMP. SHE VOICES UNDERSTANDING AND STILL WISHES TO LEAVE. CALLED DR. PEREZ AND NOTIFIED AND NOTIFIED BUSINESS APPLICATIONS MANAGER.
--- NOTE | 2024-06-28 09:48 | NUR ---
PATIENT LEFT AMA; FORM WAS SIGNED. PATIENT GOT HERSELF DRESSED AND GATHERED BELONGINGS. IV'S WERE REMOVED; LUNGS CLEAR; NO SIGNS OR SYMPTOMS OF DISTRESS. PATIENT'S ARRIVED AND HER AND HIM BOTH LEFT THE UNIT.
== END 2024-06-28 09:17 | disposition left against medical advice (07) | DRG 637 ==
LOC: ER 13:52 → ERHOLD 16:43 → ICUE 16:43 → MEDS 06-27 21:58
PROVIDERS: Emergency Medicine; Internal Medicine; Nurse Practitioner Acute Care; ADMIT Family Medicine
PROC: 02H633Z Insertion of Infusion Device into Right Atrium, Percutaneous Approach (ICD-10-PCS; principal; 2024-06-26)
PROC: 3E043XZ Introduction of Vasopressor into Central Vein, Percutaneous Approach (ICD-10-PCS; 2024-06-26)
DX: E10.10 Type 1 diabetes mellitus with ketoacidosis without coma (principal); R57.1 Hypovolemic shock; K21.9 Gastro-esophageal reflux disease without esophagitis; F31.9 Bipolar disorder, unspecified; M79.7 Fibromyalgia; F17.210 Nicotine dependence, cigarettes, uncomplicated; E10.22 Type 1 diabetes mellitus with diabetic chronic kidney disease; D63.1 Anemia in chronic kidney disease; N18.30 Chronic kidney disease, stage 3 unspecified; F25.9 Schizoaffective disorder, unspecified; E10.42 Type 1 diabetes mellitus with diabetic polyneuropathy; G24.01 Drug induced subacute dyskinesia; G47.00 Insomnia, unspecified; E55.9 Vitamin D deficiency, unspecified; F90.9 Attention-deficit hyperactivity disorder, unspecified type; E03.9 Hypothyroidism, unspecified; M41.80 Other forms of scoliosis, site unspecified; Z53.29 Procedure and treatment not carried out because of patient's decision for other reasons; Z88.2 Allergy status to sulfonamides; Z88.5 Allergy status to narcotic agent; Z98.890 Other specified postprocedural states; Z88.8 Allergy status to other drugs, medicaments and biological substances; Z79.4 Long term (current) use of insulin; Z79.84 Long term (current) use of oral hypoglycemic drugs; Z79.899 Other long term (current) drug therapy; Z87.19 Personal history of other diseases of the digestive system
CPT/HCPCS: 0241U; 36415; 36556; 51702; 71045; 80048; 80053; 81001; 82010; 82803; 82947; 83036; 83605; 83690; 83735; 84145; 84295; 84703; 85025; 85027; 87086; 87449; 93005; 93010; 94762; 96361-59; 96374-59; 99285-25; A9270; C1751; J0456; J0696; J0780; J1650; J1815; J2765; J3010; J3475; J3480; J7030; J7040; J7042; J7050; J7060; J7120; Q0177

== ENCOUNTER → 2024-07-10 | Outpatient (CLI) | payer OTHER ==
[~2024-07-10] MED LIST changes: +ATOR20 PO; +BUME1 PO; +ESZO1 PO; +HYDPAM25 PO; +LATUDA60 M1 PO; +MUPIROCIN15 GM; +NAPR220 PO; +Naltrexone HCl50 MG PO; +PREG75 PO; +THERA-D2000 UNIT PO
[2024-07-12 08:25] LABS: Adenovirus F 40/41 Not Detected (NOT DETECT); Astrovirus Not Detected (NOT DETECT); Campylobacter Sp Not Detected (NOT DETECT); Cryptosporidium Not Detected (NOT DETECT); Cyclospora Cayetanensis Not Detected (NOT DETECT); E. Coli O157 Not Detected (NOT DETECT); Entamoeba Histolytica Not Detected (NOT DETECT); Enteroaggregative E. coli-EAEC Not Detected (NOT DETECT); Enteropathogenic E. coli-EPEC Not Detected (NOT DETECT); Enterotoxigenic E. coli-ETEC Not Detected (NOT DETECT); Giardia Lamblia Not Detected (NOT DETECT); Norovirus GI/GII Not Detected (NOT DETECT); Plesiomonas Shigelloides Not Detected (NOT DETECT); Rotavirus A Not Detected (NOT DETECT); Salmonella Sp Not Detected (NOT DETECT); Sapovirus Not Detected (NOT DETECT); Shiga Toxin-prod E. coli-STEC Not Detected (NOT DETECT); Shigella/Enteroin E. coli-EIEC Not Detected (NOT DETECT); Vibrio Cholerae Not Detected (NOT DETECT); Vibrio Sp Not Detected (NOT DETECT); Yersinia Enterocolitica Not Detected (NOT DETECT)
== END | disposition home or self-care (01) ==
LOC: LAB 16:38 → LAB SHORT 16:38
PROVIDERS: Student in an Organized Health Care Education/Training Program
DX: K92.1 Melena (principal); R19.7 Diarrhea, unspecified; R11.0 Nausea
CPT/HCPCS: 87507

== ENCOUNTER 2024-10-07 14:42 | Emergency (ER) | payer OTHER ==
[~2024-10-07] VITALS: Ht 165.1 cm; Wt 63.5 kg
[2024-10-07 15:45] LABS: BASOPHILS ABSOLUTE AUTO 0.02 K/mm3 (0.00-0.23); BASOPHILS PERCENT AUTO 0 % (0-2); EOSINOPHILS ABSOLUTE AUTO 0.04 K/mm3 (0.00-0.68); EOSINOPHILS PERCENT AUTO 1 % (0-6); Hematocrit 29.9 % (33.0-51.0); Hemoglobin 10.2 g/dL (11.5-16.0); IMMATURE GRAN ABSOLUTE AUTO 0.01 K/mm3 (0.00-0.10); IMMATURE GRAN PERCENT AUTO 0 % (0-1); LYMPHOCYTES PERCENT AUTO 30 % (21-46); MONOCYTES ABSOLUTE AUTO 0.58 K/mm3 (0.16-1.47); MONOCYTES PERCENT AUTO 9 % (4-13); Mean Corpuscular HGB 29.1 pg (26.0-34.0); Mean Corpuscular HGB Conc 34.1 g/dL (31.5-36.5); Mean Corpuscular Volume 85 fL (80-100); Mean Platelet Volume 11.5 fL (9.1-12.4); NEUTROPHILS ABSOLUTE AUTO 4.09 K/mm3 (1.96-9.15); NEUTROPHILS PERCENT AUTO 61 % (41-73); Platelet Count 188 K/mm3 (150-400); RDW Standard Deviation 39.7 fL (35.1-46.3); Red Blood Cell Count 3.51 M/mm3 (3.80-5.20); White Blood Cell Count 6.74 K/mm3 (4.00-11.30)
[2024-10-07 16:10] LABS: Magnesium, Blood 1.9 mg/dL (1.6-2.4)
[2024-10-07 16:24] LABS: Alanine Aminotransfer (ALT/SGP 32 U/L (12-78); Albumin, Blood 3.7 g/dL (3.4-5.0); Albumin/Globulin Ratio 0.9 (0.8-1.8); Alk Phos 196 U/L (50-136); Anion Gap 9 mmol/L (3-11); Aspartate Aminotrans (AST/SGOT 41 U/L (12-37); Bilirubin, Direct <0.1 mg/dL (0.0-0.3); Bilirubin, Indirect Unable to Calculate mg/dL (0.1-0.7); Bilirubin, Total 0.4 mg/dL (0.1-1.0); Blood Urea Nitrogen 14 mg/dL (8-24); Bun/Creatinine Ratio 13.7 (12.0-20.0); CO2, Blood 25 mmol/L (21-32); Calcium, Blood 9.7 mg/dL (8.5-10.1); Chloride, Blood 107 mmol/L (98-108); Creatinine, Blood 1.02 mg/dL (0.40-1.00); Globulin, Blood 3.9 g/dL (2.2-4.0); Glomerular Filtration Rate 73 (60-); Glucose, Blood 151 mg/dL (70-99); Phosphorus, Blood 3.4 mg/dL (2.5-4.9); Potassium, Blood 4.1 mmol/L (3.5-5.5); Sodium, Blood 137 mmol/L (136-145); Total Protein, Blood 7.6 g/dL (6.4-8.2)
[2024-10-07 16:54] LABS: International Normalized Ratio 0.96; Prothrombin Time Results 10.3 Sec (9.7-11.5)
[2024-10-07 19:00] VITALS: BP 130/95
[2024-10-07] MEDS ORDERED: CEPH500 PO (19:17)
[2024-10-07] MEDS ORDERED: Cephalexin Monohydrate 500 MG Cap PO ONE (19:20)
== END 2024-10-07 19:30 | disposition home or self-care (01) ==
LOC: ER 14:42
PROVIDERS: Emergency Medicine
DX: T81.49XA Infection following a procedure, other surgical site, initial encounter (principal); E10.43 Type 1 diabetes mellitus with diabetic autonomic (poly)neuropathy; K31.84 Gastroparesis; K21.9 Gastro-esophageal reflux disease without esophagitis; G47.00 Insomnia, unspecified; Z87.891 Personal history of nicotine dependence; Z79.899 Other long term (current) drug therapy; Z79.84 Long term (current) use of oral hypoglycemic drugs; Z79.4 Long term (current) use of insulin; Z88.2 Allergy status to sulfonamides; Z88.5 Allergy status to narcotic agent; Z88.8 Allergy status to other drugs, medicaments and biological substances
CPT/HCPCS: 70450; 71045; 80053; 82248; 83605; 83735; 84100; 85025; 85610; 85730; 87040; 93005; 93010; 99284-25; A9270

== ENCOUNTER 2025-01-24 15:03 | Emergency (ER) | payer OTHER ==
[~2025-01-24] VITALS: Ht 165.1 cm; Wt 53.5 kg
[2025-01-24 15:06] VITALS: BP 114/97
[2025-01-24] MEDS ORDERED: NS 1,000 ML IV SCH (15:15)
== END 2025-01-24 17:39 | disposition left against medical advice (07) ==
LOC: ER 15:03
DX: R10.9 Unspecified abdominal pain (principal); R11.2 Nausea with vomiting, unspecified; R19.7 Diarrhea, unspecified; E10.9 Type 1 diabetes mellitus without complications; Z79.4 Long term (current) use of insulin; Z79.899 Other long term (current) drug therapy; Z53.21 Procedure and treatment not carried out due to patient leaving prior to being seen by health care provider
CPT/HCPCS: 99281

== ENCOUNTER → 2025-02-26 | Outpatient (CLI) | payer MEDICARE, OTHER ==
[2025-02-26 17:37] LABS: BASOPHILS ABSOLUTE AUTO 0.05 K/mm3 (0.00-0.23); BASOPHILS PERCENT AUTO 1 % (0-2); EOSINOPHILS ABSOLUTE AUTO 0.10 K/mm3 (0.00-0.68); EOSINOPHILS PERCENT AUTO 1 % (0-6); Hematocrit 33.4 % (33.0-51.0); Hemoglobin 11.2 g/dL (11.5-16.0); IMMATURE GRAN ABSOLUTE AUTO 0.03 K/mm3 (0.00-0.10); IMMATURE GRAN PERCENT AUTO 0 % (0-1); LYMPHOCYTES ABSOLUTE AUTO 3.52 K/mm3 (0.84-5.20); LYMPHOCYTES PERCENT AUTO 37 % (21-46); MONOCYTES ABSOLUTE AUTO 0.62 K/mm3 (0.16-1.47); MONOCYTES PERCENT AUTO 7 % (4-13); Mean Corpuscular HGB Conc 33.5 g/dL (31.5-36.5); Mean Corpuscular Volume 89 fL (80-100); NEUTROPHILS ABSOLUTE AUTO 5.28 K/mm3 (1.96-9.15); NEUTROPHILS PERCENT AUTO 55 % (41-73); NRBC ABSOLUTE 0.00 K/mm3 (0.00-0.02); NRBC Auto 0.0 /100 WBC (0.0-0.2); Platelet Count 231 K/mm3 (150-400); RDW Coefficient Variation 13.8 % (11.7-14.2); RDW Standard Deviation 44.5 fL (35.1-46.3)
[2025-02-26 17:47] LABS: Alanine Aminotransfer (ALT/SGP 169.0 U/L (12-78); Albumin, Blood 3.8 g/dL (3.4-5.0); Albumin/Globulin Ratio 0.9 (0.8-1.8); Anion Gap 14.0 mmol/L (3-11); Aspartate Aminotrans (AST/SGOT 62.0 U/L (12-37); Bilirubin, Total 0.7 mg/dL (0.1-1.0); Blood Urea Nitrogen 27.0 mg/dL (8-24); CO2, Blood 30.0 mmol/L (21-32); Calcium, Blood 9.8 mg/dL (8.5-10.1); Chloride, Blood 97.0 mmol/L (98-108); Creatinine, Blood 1.51 mg/dL (0.40-1.00); Globulin, Blood 4.2 g/dL (2.2-4.0); Glucose, Blood 174.0 mg/dL (70-99); Potassium, Blood 4.5 mmol/L (3.5-5.5); Sodium, Blood 136.0 mmol/L (136-145); Total Protein, Blood 8.0 g/dL (6.4-8.2)
== END ==
LOC: LAB 17:32 → LAB SHORT 17:32
PROVIDERS: Student in an Organized Health Care Education/Training Program
DX: I95.9 Hypotension, unspecified (principal)
CPT/HCPCS: 80053; 85025

== ENCOUNTER 2025-03-02 18:26 | Emergency (ER) | payer MEDICARE, OTHER ==
[~2025-03-02] VITALS: Ht 165.1 cm; Wt 52.6 kg
[2025-03-02] MEDS ORDERED: NS 1,000 ML IV SCH (19:00)
[2025-03-02 19:11] LABS: BASOPHILS ABSOLUTE AUTO 0.05 K/mm3 (0.00-0.23); BASOPHILS PERCENT AUTO 1 % (0-2); EOSINOPHILS ABSOLUTE AUTO 0.07 K/mm3 (0.00-0.68); EOSINOPHILS PERCENT AUTO 1 % (0-6); Hematocrit 33.0 % (33.0-51.0); Hemoglobin 11.6 g/dL (11.5-16.0); IMMATURE GRAN ABSOLUTE AUTO 0.05 K/mm3 (0.00-0.10); IMMATURE GRAN PERCENT AUTO 1 % (0-1); LYMPHOCYTES ABSOLUTE AUTO 3.42 K/mm3 (0.84-5.20); LYMPHOCYTES PERCENT AUTO 36 % (21-46); MONOCYTES ABSOLUTE AUTO 0.67 K/mm3 (0.16-1.47); MONOCYTES PERCENT AUTO 7 % (4-13); Mean Corpuscular HGB Conc 35.2 g/dL (31.5-36.5); Mean Corpuscular Volume 86 fL (80-100); NEUTROPHILS ABSOLUTE AUTO 5.27 K/mm3 (1.96-9.15); NEUTROPHILS PERCENT AUTO 55 % (41-73); NRBC ABSOLUTE 0.00 K/mm3 (0.00-0.02); NRBC Auto 0.0 /100 WBC (0.0-0.2); Platelet Count 247 K/mm3 (150-400); RDW Coefficient Variation 13.2 % (11.7-14.2); RDW Standard Deviation 40.9 fL (35.1-46.3)
[2025-03-02 19:33] LABS: Alanine Aminotransfer (ALT/SGP 101.0 U/L (12-78); Albumin, Blood 3.5 g/dL (3.4-5.0); Albumin/Globulin Ratio 0.8 (0.8-1.8); Anion Gap 11.0 mmol/L (3-11); Aspartate Aminotrans (AST/SGOT 55.0 U/L (12-37); Bilirubin, Total 0.6 mg/dL (0.1-1.0); Blood Urea Nitrogen 27.0 mg/dL (8-24); CO2, Blood 29.0 mmol/L (21-32); Calcium, Blood 9.8 mg/dL (8.5-10.1); Chloride, Blood 99.0 mmol/L (98-108); Creatinine, Blood 1.38 mg/dL (0.40-1.00); Globulin, Blood 4.2 g/dL (2.2-4.0); Glucose, Blood 126.0 mg/dL (70-99); Potassium, Blood 3.7 mmol/L (3.5-5.5); Sodium, Blood 135.0 mmol/L (136-145); Total Protein, Blood 7.7 g/dL (6.4-8.2)
[2025-03-02 20:17] LABS: Source, Urine Clean Catch
[2025-03-02 20:27] LABS: Bilirubin, Urine Neg (Neg); Color, Urine Pale Yellow (P-Yellow); Glucose Qualitative, Urine Neg (Neg); Ketones, Urine Neg (Neg); Leukocyte Esterase, Urine 3+ (Neg); Protein, Urine 1+ (Neg); Specific Gravity, Urine 1.005 (1.003-1.022); Urobilinogen, Urine NORM (Normal)
[2025-03-02 20:29] LABS: White Blood Cells, Urine 25-50 /hpf (0-5)
[2025-03-02 21:00] VITALS: BP 118/72
[2025-03-02] MEDS ORDERED: CEPH500 PO (21:06)
== END 2025-03-02 21:17 | disposition home or self-care (01) ==
LOC: ER 18:26
PROVIDERS: Physician Assistant
DX: I95.9 Hypotension, unspecified (principal); N39.0 Urinary tract infection, site not specified; E10.9 Type 1 diabetes mellitus without complications; K21.9 Gastro-esophageal reflux disease without esophagitis; F31.9 Bipolar disorder, unspecified; Z88.2 Allergy status to sulfonamides; Z88.8 Allergy status to other drugs, medicaments and biological substances; Z88.5 Allergy status to narcotic agent; Z79.4 Long term (current) use of insulin; Z79.84 Long term (current) use of oral hypoglycemic drugs; Z79.899 Other long term (current) drug therapy; Z87.891 Personal history of nicotine dependence
CPT/HCPCS: 80053; 81001; 81025; 83690; 85025; 87086; 93005; 93010; 99285-25; A9270; J7030